=== PATIENT | male | born 1985 | race African-American/Black ===

== ENCOUNTER 2017-03-24 08:23 | Emergency (ER) | payer MEDICARE ==
[2017-03-24 08:47] VITALS: BP 98/55
[2017-03-24 09:30] LABS: Basophils % (Auto) 0.8 % (0.0-1.8); Eosinophils % (Auto) 1.4 % (0.0-4.3); Hematocrit 42.4 % (35.5-45.6); Hemoglobin 13.7 gm/dl (11.8-15.2); Mean Corpuscular HGB Conc 32 % (32-34); Platelet Count 243 K/mm3 (140-440); Red Blood Count 6.87 M/mm3 (3.65-5.03); Red Cell Distribution Width 15.7 % (13.2-15.2); White Blood Count 11.4 K/mm3 (4.5-11.0)
[2017-03-24 09:32] LABS: Mean Corpuscular Hemoglobin 20 pg (28-32); Mean Corpuscular Volume 62 fl (84-94)
[2017-03-24 09:45] LABS: BUN/Creatinine Ratio 3.33; Calcium 8.8 mg/dL (8.4-10.2); Chloride 73.5 mmol/L (98-107); Potassium 3.9 mmol/L (3.6-5.0)
--- NOTE | 2017-03-24 16:19 | ED Elopement Review ---
ED Pt Elopement review - Results review Lab results: Laboratory Tests 03/24/17 03/24/17 08:53 08:53 WBC 11.4 H RBC 6.87 H Hgb 13.7 Hct 42.4 MCV 62 L MCH 20 L MCHC 32 RDW 15.7 H Plt Count 243 Lymph % (Auto) 23.0 [place] % (Auto) 6.2 Eos % (Auto) 1.4 Baso % (Auto) 0.8 Lymph # 2.6 [place] # 0.7 Eos # 0.2 Baso # 0.1 Seg Neutrophils % 68.6 Seg Neutrophils # 7.8 H Sodium 130 L Potassium 3.9 Chloride 73.5 L Carbon Dioxide 25 Anion Gap 35 BUN 42 H Creatinine 12.6 H Estimated GFR 5 BUN/Creatinine Ratio 3.33 Glucose 104 H Calcium 8.8 - Call Back decision Pt Call Back Decision: Call pt to return to ED EMILY (BP 98/55)
== END 2017-03-24 10:17 | disposition left against medical advice (07) ==
LOC: ED 08:23
DX: R53.1 Weakness (principal); Z53.21 Procedure and treatment not carried out due to patient leaving prior to being seen by health care provider
CPT/HCPCS: 36415; 80048; 85025

== ENCOUNTER 2019-09-20 13:43 | Emergency (ER) | payer MEDICARE ==
[2019-09-20 14:17] VITALS: BP 113/67
[2019-09-20] MEDS ORDERED: ASPIRIN 81 MG TAB CHEW PO ONE (14:20)
--- NOTE | 2019-09-20 14:20 | Event Note ---
ED Screening Note Date of service: 09/20/19 Time: 14:17 ED Screening Note: Pt complains of left sided chest pain x yesterday denies hx of CT denies SOB This initial assessment/diagnostic orders/clinical plan/treatment(s) is/are subject to change based on patients health status, clinical progression and re- assessment by fellow clinical providers in the ED. Further treatment and workup at subsequent clinical providers discretion. Patient/guardian urged not to elope from the ED as their condition may be serious if not clinically assessed and managed. Initial orders include: Labs CXR EKG
--- NOTE | 2019-09-20 15:28 | XRay Report ---
CHEST 2 VIEWS INDICATION / CLINICAL INFORMATION: Chest Pain. COMPARISON: None available. FINDINGS: SUPPORT DEVICES: None. HEART / MEDIASTINUM: No significant abnormality. LUNGS / PLEURA: No significant pulmonary or pleural abnormality. No pneumothorax. ADDITIONAL FINDINGS: Gas-distended and dilated loops of bowel in the upper abdomen on both sides IMPRESSION: No acute cardiac pulmonary abnormality. Abnormal appearance of intestinal loops in the upper abdomen. Upright and supine abdominal radiograph versus contrast-enhanced CT of the abdomen and pelvis is rec ommended for further evaluation. Signer Name: Cayden Dale MD Signed: 09/20/2019 3:23 PM Workstation Name: [id number]
== END 2019-09-20 16:00 ==
LOC: ED 13:43
DX: R07.89 Other chest pain (principal); Z53.21 Procedure and treatment not carried out due to patient leaving prior to being seen by health care provider
CPT/HCPCS: 71046; 93005; 93010

== ENCOUNTER 2020-09-19 11:22 | Inpatient (IN) | payer MEDICARE ==
--- NOTE | 2020-09-19 11:36 | Emergency Department Report ---
Blank Doc - Documentation Documentation: 35-year-old male that presents with weakness and SOB. Hypotensive in triage. This initial assessment/diagnostic orders/clinical plan/treatment(s) is/are subject to change based on patient's health status, clinical progression and re- assessment by fellow clinical providers in the ED. Further treatment and workup at subsequent clinical providers discretion. Patient/guardians urged not to elope from the ED as their condition may be serious if not clinically assessed and managed. Initial orders include: 1- Patient sent to [facility] for further evaluation and treatment 2-cardiac workup
[2020-09-19] MEDS ORDERED: LACTATED RINGERS 1,000 ML IV ONE (11:44)
--- NOTE | 2020-09-19 11:45 | Emergency Department Report ---
ED General Adult HPI - General Chief complaint: Weakness Stated complaint: FEVER PUI?: Yes Time Seen by Provider: 09/19/20 11:35 Source: patient, RN notes reviewed, old records reviewed Mode of arrival: Wheelchair Limitations: Physical Limitation - History of Present Illness Initial comments: The patient was evaluated in the emergency department for symptoms described in the history of present illness. He/she was evaluated in the context of the global COVID-19 pandemic, which necessitated consideration that the patient migh t be at risk for infection with the virus that causes COVID-19. Institutional protocols and algorithms that pertain to the evaluation of patients at risk for COVID-19 are in a state of rapid change based on information released by regulatory bodies including the CDC and federal and state organizations. These policies and algorithms were followed during the patient's care in the emergency department. Please note that these policies, procedures and recommendations changed on a rapid basis. During the entire history and physical examination, I had on complete personal protective equipment. Nephrology: Dr. Ryan the patient is a 35-year-old gentleman, with a past medical history of end-stage renal disease on hemodialysis, Saturday, Saturday, Saturday. His last hemodialysis session was this past Saturday. It is currently Saturday. He also has a history of thrombosed upper extremity graft, and he reports that he is on lifelong Coumadin. Patient presents to the ER today with a complaint of weakness, shortness of breath He states his symptoms started this morning. He states initially he is not having any physical pain. He believes he had a fever of 107 degrees. He admits to a few episodes of nonbloody, nonbilious watery diarrhea. He does not believe he is having black tarry stool. He denies hematemesis. He makes no complaint of headache, neck pain, chest pain. During review of systems, he endorsed mild diffuse abdominal pain. No focal extremity weakness/numbness. No loss of taste or smell. He reports that he went to outpatient dialysis, but did not receive hemodialysis, and was thus referred to the emergency room. He does not describe exacerbating or relieving factors. He indicates no radiation that he is aware of -: hour(s) Location: abdomen Radiation: other Quality: other Consistency: other Improves with: other Worsens with: other - Related Data Home Medications Medication Instructions Recorded Confirmed Last Taken Calcium Acetate [Phoslo] 1,000 mg PO TID 10/11/15 04/24/16 04/23/16 1000 mg Colesevelam [Welchol] 625 mg PO BID 10/11/15 04/24/16 04/23/16 625 mg Fludrocortisone [Florinef] 0.1 mg PO QDAY 10/11/15 04/24/16 04/23/16 Lanthanum Carbonate [Fosrenol] 1,000 mg PO TID 10/11/15 04/24/16 04/23/16 1000 mg Midodrine HCl 10 mg PO TID 10/11/15 04/24/16 04/24/16 04:30 10 mg Omeprazole [PriLOSEC] 20 mg PO QDAY 10/11/15 04/24/16 04/23/16 20 mg Potassium Chloride [Klor-Con 10] 20 meq PO DAILY 10/11/15 04/24/16 04/23/16 20 meq Promethazine [Phenergan] 25 mg PO TID PRN 10/11/15 04/16/16 02/24/16 25 mg Warfarin Sodium [Coumadin] 4 mg PO 3XW 10/11/15 04/24/16 04/23/16 4 mg allopurinoL [Zyloprim] 100 mg PO QDAY 10/11/15 04/24/16 04/23/16 100 mg levETIRAcetam [Keppra TAB] 500 mg PO BID 10/11/15 04/24/16 04/24/16 04:30 500 mg Colchicine [Colcrys] 0.6 mg PO QDAY 04/16/16 04/24/16 Unknown Previous Rx's Medication Instructions Recorded Last Taken Type oxyCODONE /ACETAMINOPHEN [Percocet 1 tab PO Q4HR #30 tab 04/24/16 Unknown Rx 5/325] Allergies Allergy/AdvReac Type Severity Reaction Status Date / Time Iodine and Iodide Containing Allergy Swelling Verified 03/24/17 08:47 Produc povidone-iodine Allergy Swelling Verified 03/24/17 08:47 [From Betadine] soap [From Betadine] Allergy Swelling Verified 03/24/17 08:47 Iodinated Contrast Media AdvReac Swelling Verified 03/24/17 08:47 [Iodinated Contrast Media - IV Dye] IV Contrast AdvReac Swelling Uncoded 03/24/17 08:47 ED Review of Systems ROS: Stated complaint: FEVER Other details as noted in HPI Constitutional: fever, malaise, weakness Eyes: denies: eye discharge ENT: congestion Respiratory: shortness of breath Cardiovascular: denies: chest pain Gastrointestinal: abdominal pain. denies: hematemesis, melena, hematochezia Genitourinary: other (Patient states he does not produce urine) Musculoskeletal: as per HPI Neurological: weakness Hematological/Lymphatic: denies: easy bleeding ED Past Medical Hx - Past Medical History Previous Medical History?: Yes Hx Renal Disease: Yes (DIALYSIS - - ) Hx Seizures: Yes (Last seizure over a year ago; on Keppra) Hx HIV: No Additional medical history: chronic diarrhea - Surgical History Past Surgical History?: Yes Additional Surgical History: PEG TUBE, AV graft, permacath. GRAFT RIGHT UPPER ARM - Social History Smoking Status: Never Smoker Substance Use Type: None - Medications Home Medications: Home Medications Medication Instructions Recorded Confirmed Last Taken Type Calcium Acetate [Phoslo] 1,000 mg PO TID 10/11/15 04/24/16 04/23/16 History 1000 mg Colesevelam [Welchol] 625 mg PO BID 10/11/15 04/24/16 04/23/16 History 625 mg Fludrocortisone [Florinef] 0.1 mg PO QDAY 10/11/15 04/24/16 04/23/16 History Lanthanum Carbonate [Fosrenol] 1,000 mg PO TID 10/11/15 04/24/16 04/23/16 His tory 1000 mg Midodrine HCl 10 mg PO TID 10/11/15 04/24/16 04/24/16 04:30 History 10 mg Omeprazole [PriLOSEC] 20 mg PO QDAY 10/11/15 04/24/16 04/23/16 History 20 mg Potassium Chloride [Klor-Con 10] 20 meq PO DAILY 10/11/15 04/24/16 04/23/16 History 20 meq Promethazine [Phenergan] 25 mg PO TID PRN 10/11/15 04/16/16 02/24/16 History 25 mg Warfarin Sodium [Coumadin] 4 mg PO 3XW 10/11/15 04/24/16 04/23/16 History 4 mg allopurinoL [Zyloprim] 100 mg PO QDAY 10/11/15 04/24/16 04/23/16 History 100 mg levETIRAcetam [Keppra TAB] 500 mg PO BID 10/11/15 04/24/16 04/24/16 04:30 History 500 mg Colchicine [Colcrys] 0.6 mg PO QDAY 04/16/16 04/24/16 Unknown History oxyCODONE /ACETAMINOPHEN [Percocet 1 tab PO Q4HR #30 tab 04/24/16 Unknown Rx 5/325] ED Physical Exam - General Limitations: Physical Limitation General appearance: alert, in no apparent distress - Head Head exam: Present: atraumatic, normocephalic - Eye Eye exam: Present: normal appearance, EOMI - ENT ENT exam: Present: normal orophraynx, mucous membranes dry, normal external ear exam - Neck Neck exam: Present: normal inspection, full ROM. Absent: tenderness, meningismus - Respiratory Respiratory exam: Present: decreased breath sounds. Absent: respiratory distress, wheezes, rales, rhonchi, stridor - Cardiovascular Cardiovascular Exam: Present: normal rhythm, tachycardia, normal heart sounds. Absent: bradycardia, irregular rhythm, systolic murmur, diastolic murmur, rubs, gallop - GI/Abdominal GI/Abdominal exam: Present: soft, tenderness, normal bowel sounds, other (Mild diffuse abdominal tenderness. Feeding tube noted in the left mid quadrant, with no redness, pus or streaking). Absent: distended, guarding, rebound, rigid, pulsatile mass - Rectal Rectal exam: Present: deferred - Extremities Exam Extremities exam: Present: full ROM, other (1+ pulses noted in the bilateral upper and lower extremities. There is no long bony tenderness. Muscular compartments are soft. There is a left upper extremity graft, which is nonfunctional. There is a right upper extremity graft, which is functional. There is no redness, pus or streaking) - Back Exam Back exam: Present: normal inspection, full ROM. Absent: tenderness, CVA tenderness (R), CVA tenderness (L), paraspinal tenderness, vertebral tenderness - Neurological Exam Neurological exam: Present: alert, other (No facial droop. Tongue midline. Extraocular movements intact bilaterally. Facial sensation intact to light touch in V1, V2, V3 distribution bilaterally. 5 and a 5 strength in 4 extremities. Sensation intact to light touch in 4 extremities.) - Psychiatric Psychiatric exam: Present: normal affect, normal mood - Skin Skin exam: Present: warm, dry, intact, normal color. Absent: rash ED Course Vital Signs 09/19/20 09/19/20 09/19/20 11:37 12:11 12:15 Temperature 979 F H Pulse Rate 100 H 90 Respiratory 20 19 10 L Rate Blood Pressure 73/24 Blood Pressure 58/26 [Right] O2 Sat by Pulse Oximetry 09/19/20 09/19/20 12:30 14:00 Temperature Pulse Rate 84 76 Respiratory 11 L 15 Rate Blood Pressure 72/30 75/39 Blood Pressure [Right] O2 Sat by Pulse 96 Oximetry - Reevaluation(s) Reevaluation #1: 09/19/20 12:22 Differential diagnosis, including but not limited to: Dehydration, pneumonia, bacteremia, viremia, COVID-19, obstruction, volvulus, intra-abdominal infection, hyperkalemia, renal insufficiency Assessment and plan: 35-year-old gentleman, who was found to be hypotensive, with a complaint of weakness, resolved fever, shortness of breath, and abdominal pain. As per review of old medical records, patient has a history of hypertension, but is typically fluid responsive. It also appears that he was previously on fludrocortisone, however, the patient does not recall being on this medicine, and he is not quite sure why he has been on it. We recommended a digital rectal exam to exclude potentially life-threatening causes of hypotension, including GI bleed. Patient is refusing this examination. The patient is currently awake, oriented, clinically sober and exhibits decision-making capacity, and free from distracting injury. I did inform the patient of the risks of an undiagnosed GI bleed, including , disability, paralysis, loss of quality of life. Patient articulated understanding in his own words. Patient is amenable to resuscitation, fluids, supportive control/care, and diagnostic work-up. To that end, we will obtain appropriate laboratory studies, including sepsis labs, and laboratory studies to risk stratify for cytokine storm from Covid. We will place the patient on isolation, initiate stress dose steroids empirically, obtain CT scan of the abdomen pelvis, courtesy consultation placed for infectious disease, will defer to inpatient team to follow this up, I will discuss with his baking assistant once all of his initial diagnostics and data points have resulted. Have discussed this plan of care with the patient, who verbalized understanding, and he was amenable to this plan of care. Temperature of 979 is likely an error, as per nursing documentation on his triage sheet, temperature written down is 97.9 F. Patient reports that he is on chronic Coumadin therapy, tachycardia resolved, he is not significantly hypoxic, therefore, I think a pulmonary embolism is very unlikely. 09/19/20 12:26 Reevaluation #2: 09/19/20 14:47 Blood pressure improved at 96/66 mmHg. However, and then decreased to the mid 70s. Additional IV fluids ordered. CT scan abdomen pelvis reviewed and appreciated, pulmonary infiltrates noted. Antibiotics ordered. Please note that patient's initial laboratory studies were hemolyzed, thus, comprehensive metabolic panel was not available for my review. Laboratory studies were recollected, and comprehensive metabolic panel running at this time. Multiple discussions had with patient regarding recommendation for admission/hospitalization. Patient vacillated on this, but ultimately was amenable to admission/hospitalization. We will defer to inpatient team to further manage and evaluate subtherapeutic INR. Hospital physician, Dr. Monae Coburn to admit he states this patient is his private patient in the office, and that he chronically has hypotension, typically in the 70s/80s inpatient team ok with this blood pressure 09/19/20 14:52 09/19/20 15:15 Blood pressure 93/48. Laboratory studies demonstrate metabolic acidosis, azotemia and uremia. This is likely secondary to her end-stage renal disease. Patient does not know how many pounds or kilograms anyways. I have specifically asked nursing team to obtain weight in kilograms, so that we may dose patient appropriately in terms of his fluid requirements. He appears to be volume down, and given hypotension, lactic acidosis, pulmonary infiltrates on CT scan, patient ruling in for systemic inflammatory response syndrome criteria. - Consultations Consultation #1: 09/19/20 13:52 Discussed history, physical, pertinent laboratory studies, with nephrology on- call, Dr. Horta. Agrees with plan of care, nephrology will follow in consultation. Patient resting comfortably at this time, and in no acute distress - EJ/Peripheral Line Neck L Time Out Performed: Yes Indications: multiple IV sites needed Skin Cleansed in Sterile Fashion: Yes Size: 20 Dressing Placed: Tegaderm Patient Tolerated Procedure: well ED Medical Decision Making - Lab Data Result diagrams: 09/19/20 13:20 09/19/20 14:35 Vital Signs 09/19/20 11:37 Temperature 979 F H Pulse Rate 100 H Respiratory 20 Rate Blood Pressure 58/26 [Right] Vital Signs 09/19/20 09/19/20 09/19/20 11:37 12:11 12:15 Temperature 979 F H Pulse Rate 100 H 90 Respiratory 20 19 10 L Rate Blood Pressure 73/24 Blood Pressure 58/26 [Right] O2 Sat by Pulse Oximetry 09/19/20 09/19/20 12:30 14:00 Temperature Pulse Rate 84 76 Respiratory 11 L 15 Rate Blood Pressure 72/30 75/39 Blood Pressure [Right] O2 Sat by Pulse 96 Oximetry Lab Results 09/19/20 09/19/20 09/19/20 Range/Units 13:20 13:20 13:20 WBC 11.5 H (4.5-11.0) K/mm3 RBC 6.34 H (3.65-5.03) M/mm3 Hgb 12.1 (11.8-15.2) gm/dl Hct 36.8 (35.5-45.6) % MCV 58 L (84-94) fl MCH 19 L (28-32) pg MCHC 33 (32-34) % RDW 16.5 H (13.2-15.2) % Plt Count 180 (140-440) K/mm3 Lymph % (Auto) 11.4 L (13.4-35.0) % [place] % (Auto) 7.4 H (0.0-7.3) % Eos % (Auto) 0.0 (0.0-4.3) % Baso % (Auto) 0.2 (0.0-1.8) % Lymph # (Auto) 1.3 (1.2-5.4) K/mm3 [place] # (Auto) 0.9 H (0.0-0.8) K/mm3 Eos # (Auto) 0.0 (0.0-0.4) K/mm3 Baso # (Auto) 0.0 (0.0-0.1) K/mm3 Seg Neutrophils % 81.0 H (40.0-70.0) % Seg Neutrophils # 9.3 H (1.8-7.7) K/mm3 PT 13.2 (12.2-14.9) Sec. INR 1.02 (0.87-1.13) APTT 38.3 H (24.2-36.6) Sec. D-Dimer 933.77 H (0-234) ng/mlDDU Sodium (137-145) mmol/L Potassium (3.6-5.0) mmol/L Chloride (98-107) mmol/L Carbon Dioxide (22-30) mmol/L Anion Gap mmol/L BUN (9-20) mg/dL Creatinine (0.8-1.3) mg/dL Estimated GFR ml/min BUN/Creatinine Ratio % Glucose (75-100) mg/dL Lactic Acid (0.7-2.0) mmol/L Calcium (8.4-10.2) mg/dL Magnesium (1.7-2.3) mg/dL Total Bilirubin (0.1-1.2) mg/dL AST (5-40) units/L ALT (7-56) units/L Alkaline Phosphatase (35-129) units/L Lactate Dehydrogenase (91-180) units/L Total Creatine Kinase (55-170) units/L Troponin T (0.00-0.029) ng/mL C-Reactive Protein (0.00-1.30) mg/dL Total Protein (6.3-8.2) g/dL Albumin (3.9-5) g/dL Albumin/Globulin Ratio % Procalcitonin 4.84 (<0.15) ng/mL 09/19/20 09/19/20 Range/Units 14:35 14:35 WBC (4.5-11.0) K/mm3 RBC (3.65-5.03) M/mm3 Hgb (11.8-15.2) gm/dl Hct (35.5-45.6) % MCV (84-94) fl MCH (28-32) pg MCHC (32-34) % RDW (13.2-15.2) % Plt Count (140-440) K/mm3 Lymph % (Auto) (13.4-35.0) % [place] % (Auto) (0.0-7.3) % Eos % (Auto) (0.0-4.3) % Baso % (Auto) (0.0-1.8) % Lymph # (Auto) (1.2-5.4) K/mm3 [place] # (Auto) (0.0-0.8) K/mm3 Eos # (Auto) (0.0-0.4) K/mm3 Baso # (Auto) (0.0-0.1) K/mm3 Seg Neutrophils % (40.0-70.0) % Seg Neutrophils # (1.8-7.7) K/mm3 PT (12.2-14.9) Sec. INR (0.87-1.13) APTT (24.2-36.6) Sec. D-Dimer (0-234) ng/mlDDU Sodium 132 L (137-145) mmol/L Potassium 2.7 L* (3.6-5.0) mmol/L Chloride 73.3 L (98-107) mmol/L Carbon Dioxide 36 H (22-30) mmol/L Anion Gap 25 mmol/L BUN 62 H (9-20) mg/dL Creatinine 15.9 H (0.8-1.3) mg/dL Estimated GFR 3 ml/min BUN/Creatinine Ratio 4 % Glucose 97 (75-100) mg/dL Lactic Acid 3.10 H* (0.7-2.0) mmol/L Calcium 7.6 L (8.4-10.2) mg/dL Magnesium 2.10 (1.7-2.3) mg/dL Total Bilirubin 0.50 (0.1-1.2) mg/dL AST 36 (5-40) units/L ALT 11 (7-56) units/L Alkaline Phosphatase 65 (35-129) units/L Lactate Dehydrogenase 235 H (91-180) units/L Total Creatine Kinase 114 (55-170) units/L Troponin T 0.014 (0.00-0.029) ng/mL C-Reactive Protein 7.80 H (0.00-1.30) mg/dL Total Protein 7.3 (6.3-8.2) g/dL Albumin 3.9 (3.9-5) g/dL Albumin/Globulin Ratio 1.1 % Procalcitonin (<0.15) ng/mL - Radiology Data Radiology results: report reviewed, image reviewed Print Report Referring Physician: MARY ANAND Patient Name: NITZA LINDSEY Date of : 1985 Sex: Male Report Date: 2020-09-19 Report Status: Finalized Findings [facility] [address] [place] [address] XRay Report Signed Patient: NITZA LINDSEY MR#: [id number] : 1985 Acct:[id number] Age/Sex: 35 / M ADM Date: 09/19/20 Loc: ED Attending Dr: Ordering Physician: MARY ANAND MD Date of Service: 09/19/20 Procedure(s): XR chest 1V ap Accession Number(s): [id number] cc: MARY ANAND MD Fluoro Time In Minutes: CHEST 1 VIEW INDICATION: shock, hypotensioon, chills. COMPARISON: 09/20/2019 FINDINGS: Support devices: None. Heart: Within normal limits. Lungs/Pleura: No acute air space or interstitial disease. Additional findings: Prominent gas-filled loops of bowel in the upper abdomen are again noted. IMPRESSION: No acute findings. Signer Name: Beny Abreu Jr, MD Signed: 09/19/2020 12:15 PM Workstation Name: [id number] Transcribed By: TTR Dictated By: BENY ABREU JR, MD Electronically Authenticated By: BENY ABREU JR, MD Signed Date/Time: 09/19/20 1215 DD/ 1214 TD/TT: CT ABDOMEN AND PELVIS WITHOUT CONTRAST HISTORY: acute abd pain, hypotension, dilated loops of viktoriya COMPARISON: None. TECHNIQUE: Axial CT images were obtained through the abdomen and pelvis without IV contrast. Sagittal and coronal reformatted images. All CT scans at this location are performed using CT dose reduction for ALARA by means of automated exposure control. FINDINGS: CT ABDOMEN: Lung Bases: There are subtle patchy groundglass densities in the lower lung zones concerning for atypical infection or viral infection. No pleural effusion. Heart size is normal. Liver: No significant abnormality. Biliary: No significant abnormality. Spleen: No significant abnormality. Unenlarged. Pancreas: No significant abnormality. Adrenals: No significant abnormality. Kidneys: Both kidneys are atrophic with scattered simple appearing cysts. No obstructive uropathy. Lymphatics: No lymphadenopathy. Vasculature: Mild diffuse arterial calcifications. No aneurysm. Bowel/Peritoneum: A peg tube terminates in the mid to distal stomach. The colon appears mildly distended with gas and moderate fluid. There is no convincing evidence for obstruction. No focal bowel wall thickening. The small bowel loops are unremarkable. The appendix is not confidently identified. CT PELVIS: : The bladder is decompressed. Osseous Structures: No significant abnormality. Additional Findings: None IMPRESSION: Subtle scattered lung opacities at the lung bases concerning for viral infection. Slightly prominent: With moderate fluid and gas. Gastroenteritis could be considered. No convincing evidence for bowel obstruction. Chronic renal parenchymal disease. Multiple renal cysts. Signer Name: Beny Abreu Jr, MD Signed: 09/19/2020 12:22 PM Workstation Name: [id number] Critical Care Time: Yes Critical care time in (mins) excluding proc time.: 35 Critical care attestation.: If time is entered above; I have spent that time in minutes in the direct care of this critically ill patient, excluding procedure time. ED Disposition Clinical Impression: ESRD on dialysis, Dehydration, Acute abdominal pain, Suspected 2019 novel coronavirus infection, Uremia, Azotemia, Metabolic acidosis, Hypokalemia, SIRS (systemic inflammatory response syndrome) Dyspnea Qualifiers: Dyspnea type: other forms of dyspnea Qualified Code(s): R06.09 - Other forms of dyspnea Disposition: OP ADMIT IP TO THIS HOSP Is pt being admited?: Yes Does the pt Need Aspirin: No Condition: Serious Referrals: PRIMARY CARE, [Primary Care Provider] - 3-5 Days
[2020-09-19] MEDS ORDERED: fentaNYL 100 MCG/2 ML INJ IV ONE (12:15)
[2020-09-19] MEDS ORDERED: HYDROCORTISONE SOD SUCC 100 MG/2 ML VIAL IV ONE (12:18)
--- NOTE | 2020-09-19 12:19 | XRay Report ---
CHEST 1 VIEW INDICATION: shock, hypotensioon, chills. COMPARISON: 09/20/2019 FINDINGS: Support devices: None. Heart: Within normal limits. Lungs/Pleura: No acute air space or interstitial disease. Additional findings: Prominent gas-filled loops of bowel in the upper abdomen are again noted. IMPRESSION: No acute findings. Signer Name: Beny Abreu Jr, MD Signed: 09/19/2020 12:15 PM Workstation Name: [id number]
--- NOTE | 2020-09-19 13:27 | Cat Scan Report ---
CT ABDOMEN AND PELVIS WITHOUT CONTRAST HISTORY: acute abd pain, hypotension, dilated loops of viktoriya COMPARISON: None. TECHNIQUE: Axial CT images were obtained through the abdomen and pelvis without IV contrast. Sagittal and coronal reformatted images. All CT scans at this location are performed using CT dose reduction for ALARA by means of automated exposure control. FINDINGS: CT ABDOMEN: Lung Bases: There are subtle patchy groundglass densities in the lower lung zones concerning for atyp ical infection or viral infection. No pleural effusion. Heart size is normal. Liver: No significant abnormality. Biliary: No significant abnormality. Spleen: No significant abnormality. Unenlarged. Pancreas: No significant abnormality. Adrenals: No significant abnormality. Kidneys: Both kidneys are atrophic with scattered simple appearing cysts. No obstructive uropathy. Lymphatics: No lymphadenopathy. Vasculature: Mild diffuse arterial calcifications. No aneurysm. Bowel/Peritoneum: A peg tube terminates in the mid to distal stomach. The colon appears mildly disten ded with gas and moderate fluid. There is no convincing evidence for obstruction. No focal bowel wall thickening. The small bowel loops are unremarkable. The appendix is not confidently identified. CT PELVIS: : The bladder is decompressed. Osseous Structures: No significant abnormality. Additional Findings: None IMPRESSION: Subtle scattered lung opacities at the lung bases concerning for viral infection. Slightly prominent: With moderate fluid and gas. Gastroenteritis could be considered. No convincing e vidence for bowel obstruction. Chronic renal parenchymal disease. Multiple renal cysts. Signer Name: Beny Abreu Jr, MD Signed: 09/19/2020 1:22 PM Workstation Name: [id number]
[2020-09-19 13:31] LABS: Basophils % (Auto) 0.2 % (0.0-1.8); Hematocrit 36.8 % (35.5-45.6); Hemoglobin 12.1 gm/dl (11.8-15.2); Lymphocytes # (Auto) 1.3 K/mm3 (1.2-5.4); Lymphocytes % (Auto) 11.4 % (13.4-35.0); Mean Corpuscular HGB Conc 33 % (32-34); Monocytes # (Auto) 0.9 K/mm3 (0.0-0.8); Monocytes % (Auto) 7.4 % (0.0-7.3); Red Blood Count 6.34 M/mm3 (3.65-5.03); Red Cell Distribution Width 16.5 % (13.2-15.2)
[2020-09-19 13:42] LABS: Mean Corpuscular Volume 58 fl (84-94); Platelet Count 180 K/mm3 (140-440)
[2020-09-19] MEDS ORDERED: cefTRIAXone/NS 1 GM/50 ML 1 GM/50 ML BAG IV ONE (13:43)
[2020-09-19 13:45] LABS: INR 1.02 (0.87-1.13)
[2020-09-19] MEDS ORDERED: SODIUM CHLORIDE 0.9% 500 ML 500 ML IV ONE ×2 (13:45→14:22)
[2020-09-19 13:46] LABS: Partial Thromboplastin Time 38.3 Sec. (24.2-36.6)
[2020-09-19] MEDS ORDERED: AZITHROMYCIN 500 MG in SODIUM CHLORIDE 0.9% 250ML 250 ML IV ONE (14:00)
[2020-09-19 15:06] LABS: Albumin 3.9 g/dL (3.9-5); C-Reactive Protein 7.8 mg/dL (0.00-1.30); Calcium 7.6 mg/dL (8.4-10.2)
[2020-09-19] MEDS ORDERED: POTASSIUM CHLORIDE ER 20 MEQ TAB PO ONE (15:17)
--- NOTE | 2020-09-19 15:31 | Event Note ---
Date: 09/19/20 Appreciate renal consult, patient follows with [facility] for [facility]D. Full consult to follow. In short, patient presents with sepsis potentially due to COVID-19 vs other etiology, is hypotensive with elevated lactate. Labs and vitals reviewed, no emergent HD indication and currently unstable for HD. Will follow and provide HD as needed based on labs, volume status, and clinical stability
[2020-09-20] MEDS ORDERED: PROMETHAZINE 25 MG TAB PO PRN (02:30)
[2020-09-20] MEDS ORDERED: ONDANSETRON 4 MG/2 ML INJ IV PRN (02:33)
[2020-09-20] MEDS ORDERED: METOCLOPRAMIDE 10 MG/2 ML INJ IV PRN ×2 (02:33→02:51)
[2020-09-20] MEDS ORDERED: ACETAMINOPHEN 325 MG TAB PO PRN (02:33)
[2020-09-20] MEDS ORDERED: HYDROmorphone 1 MG/1 ML INJ IV PRN (02:33)
--- NOTE | 2020-09-20 02:40 | History and Physical Report ---
History of Present Illness Date of examination: 09/19/20 Date of admission: 09/19/20 14:49 Chief complaint: Weakness and shortness of breath for 1 day History of present illness: 35-year-old patient male well-known to me with history of end-stage renal disease hypotension and GERD comes in for increasing shortness of breath and weakness. Patient also had a fever of 101 degrees. Patient also admits to diarrhea. No hematemesis or black tarry stools. Fever and cough present. No exposure to coronavirus. Patient also has history of seizures. No recent seizures. - Past Medical History Previous Medical History?: Yes --Renal Disease: Yes (DIALYSIS - - ) --Seizures: Yes (Last seizure over a year ago; on Keppra) --Hypotension Additional medical history: chronic diarrhea - Surgical History Past Surgical History?: Yes Additional Surgical History: PEG TUBE, AV graft, permacath. GRAFT RIGHT UPPER ARM - Social History Smoking Status: Never Smoker Substance Use Type: None - Medications Home Medications: Home Medications Medication Instructions Recorded Confirmed Last Taken Type Calcium Acetate [Phoslo] 1,000 mg PO TID 10/11/15 04/24/16 04/23/16 History 1000 mg Colesevelam [Welchol] 625 mg PO BID 10/11/15 04/24/16 04/23/16 History 625 mg Fludrocortisone [Florinef] 0.1 mg PO QDAY 10/11/15 04/24/16 04/23/16 History Lanthanum Carbonate [Fosrenol] 1,000 mg PO TID 10/11/15 04/24/16 04/23/16 History 1000 mg Midodrine HCl 10 mg PO TID 10/11/15 04/24/16 04/24/16 04:30 History 10 mg Omeprazole [PriLOSEC] 20 mg PO QDAY 10/11/15 04/24/16 04/23/16 History 20 mg Potassium Chloride [Klor-Con 10] 20 meq PO DAILY 10/11/15 04/24/16 04/23/16 History 20 meq Promethazine [Phenergan] 25 mg PO TID PRN 10/11/15 04/16/16 02/24/16 History 25 mg Warfarin Sodium [Coumadin] 4 mg PO 3XW 10/11/15 04/24/16 04/23/16 History 4 mg allopurinoL [Zyloprim] 100 mg PO QDAY 10/11/15 04/24/16 04/23/16 History 100 mg levETIRAcetam [Keppra TAB] 500 mg PO BID 10/11/15 04/24/16 04/24/16 04:30 History 500 mg Colchicine [Colcrys] 0.6 mg PO QDAY 04/16/16 04/24/16 Unknown History oxyCODONE /ACETAMINOPHEN [Percocet 1 tab PO Q4HR #30 tab 04/24/16 Unknown Rx 5/325] Review of Systems ROS: Stated complaint: FEVER Other details as noted in HPI Constitutional: fever, malaise, weakness Eyes: denies: eye discharge ENT: congestion Respiratory: shortness of breath Cardiovascular: denies: chest pain Gastrointestinal: abdominal pain. denies: hematemesis, melena, hematochezia Genitourinary: other (Patient states he does not produce urine) Musculoskeletal: as per HPI Neurological: weakness Hematological/Lymphatic: denies: easy bleeding Medications and Allergies Allergies Allergy/AdvReac Type Severity Reaction Status Date / Time Iodine and Iodide Containing Allergy Swelling Verified 03/24/17 08:47 Produc povidone-iodine Allergy Swelling Verified 03/24/17 08:47 [From Betadine] soap [From Betadine] Allergy Swelling Verified 03/24/17 08:47 Iodinated Contrast Media AdvReac Swelling Verified 03/24/17 08:47 [Iodinated Contrast Media - IV Dye] IV Contrast AdvReac Swelling Uncoded 03/24/17 08:47 Home Medications Medication Instructions Recorded Confirmed Last Taken Type Calcium Acetate [Phoslo] 1,000 mg PO TID 10/11/15 04/24/16 04/23/16 History 1000 mg Colesevelam [Welchol] 625 mg PO BID 10/11/15 04/24/16 04/23/16 History 625 mg Fludrocortisone [Florinef] 0.1 mg PO QDAY 10/11/15 04/24/16 04/23/16 History Lanthanum Carbonate [Fosrenol] 1,000 mg PO TID 10/11/15 04/24/16 04/23/16 History 1000 mg Midodrine HCl 10 mg PO TID 10/11/15 04/24/16 04/24/16 04:30 History 10 mg Omeprazole [PriLOSEC] 20 mg PO QDAY 10/11/15 04/24/16 04/23/16 History 20 mg Potassium Chloride [Klor-Con 10] 20 meq PO DAILY 10/11/15 04/24/16 04/23/16 History 20 meq Promethazine [Phenergan] 25 mg PO TID PRN 10/11/15 04/16/16 02/24/16 History 25 mg Warfarin Sodium [Coumadin] 4 mg PO 3XW 10/11/15 04/24/16 04/23/16 History 4 mg allopurinoL [Zyloprim] 100 mg PO QDAY 10/11/15 04/24/16 04/23/16 History 100 mg levETIRAcetam [Keppra TAB] 500 mg PO BID 10/11/15 04/24/16 04/24/16 04:30 History 500 mg Colchicine [Colcrys] 0.6 mg PO QDAY 04/16/16 04/24/16 Unknown History oxyCODONE /ACETAMINOPHEN [Percocet 1 tab PO Q4HR #30 tab 04/24/16 Unknown Rx 5/325] Active Meds: Active Medications Acetaminophen (Acetaminophen 325 Mg Tab) 650 mg PO Q4H PRN PRN Reason: Pain MILD(1-3)/Fever >100.5/TUBBS Allopurinol (Allopurinol 100 Mg Tab) 100 mg PO QDAY [facility] Calcium Acetate (Calcium Acetate 667 Mg Cap) 1,000 mg PO TID [facility] Colesevelam HCl (Colesevelam 625 Mg Tab) 625 mg PO BID [facility] Fludrocortisone Acetate (Fludrocortisone 0.1 Mg Tab) 0.1 mg PO QDAY [facility] Hydromorphone HCl (Hydromorphone 1 Mg/1 Ml Inj) 0.25 mg IV Q3H PRN PRN Reason: Pain, Moderate (4-6) Levetiracetam (Levetiracetam 500 Mg Tab) 500 mg PO BID [facility] Metoclopramide HCl (Metoclopramide 10 Mg/2 Ml Inj) 10 mg IV Q6H PRN PRN Reason: Nausea And Vomiting Miscellaneous Medication (Colchicine [Colcrys]) 0.6 mg PO QDAY [facility] Miscellaneous Medication (Lanthanum Carbonate [Fosrenol]) 1,000 mg PO TID [facility] Miscellaneous Medication (Midodrine Hcl [Midodrine Hcl]) 10 mg PO TID [facility] Miscellaneous Medication (Omeprazole [Prilosec]) 20 mg PO QDAY [facility] Miscellaneous Medication (Potassium Chloride [Klor-Con 10]) 20 meq PO DAILY [facility] Miscellaneous Medication (Warfarin Sodium [Coumadin]) 4 mg PO 3XW [facility] Ondansetron HCl (Ondansetron 4 Mg/2 Ml Inj) 4 mg IV Q3H PRN PRN Reason: Nausea And Vomiting Oxycodone/Acetaminophen (Oxycodone /Acetaminophen 5-325mg Tab) 1 tab PO Q4HR [facility] Promethazine HCl (Promethazine 25 Mg Tab) 25 mg PO TID PRN PRN Reason: Nausea Sodium Chloride (Sodium Chloride 0.9% 10 Ml Flush Syringe) 10 ml IV BID [facility] Sodium Chloride (Sodium Chloride 0.9% 10 Ml Flush Syringe) 10 ml IV PRN PRN PRN Reason: LINE FLUSH Exam - Constitutional Vitals: Temp Pulse Resp BP Pulse Ox 979 F H 72 16 93/48 96 09/19/20 11:37 09/19/20 15:00 09/19/20 15:18 09/19/20 15:00 09/19/20 15:00 General appearance: Present: no acute distress, well-nourished - EENT Eyes: Present: PERRL ENT: hearing intact, clear oral mucosa - Neck Neck: Present: supple, normal ROM - Respiratory Respiratory effort: normal Respiratory: bilateral: CTA - Cardiovascular Heart rate: 78 Rhythm: regular Heart Sounds: Present: S1 & S2. Absent: rub, click - Extremities Extremities: pulses symmetrical, No edema, abnormal (Multiple extremity fistulas possibly thrombosed) Peripheral Pulses: within normal limits - Abdominal General gastrointestinal: Present: soft, non-tender, non-distended, normal bowel sounds Male genitourinary: Present: normal - Integumentary Integumentary: Present: clear, warm, dry - Musculoskeletal Musculoskeletal: gait normal, strength equal bilaterally - Psychiatric Psychiatric: appropriate mood/affect, intact judgment & insight - Neurologic Neurologic: CNII-XII intact, moves all extremities HEART Score - HEART Score Troponin: Troponin T 0.014 ng/mL (0.00-0.029) 09/19/20 14:35 Results - Labs CBC & Chem 7: 09/19/20 13:20 09/19/20 14:35 Labs: Laboratory Last Values WBC 11.5 K/mm3 (4.5-11.0) H 09/19/20 13:20 RBC 6.34 M/mm3 (3.65-5.03) H 09/19/20 13:20 Hgb 12.1 gm/dl (11.8-15.2) 09/19/20 13:20 Hct 36.8 % (35.5-45.6) 09/19/20 13:20 MCV 58 fl (84-94) L 09/19/20 13:20 MCH 19 pg (28-32) L 09/19/20 13:20 MCHC 33 % (32-34) 09/19/20 13:20 RDW 16.5 % (13.2-15.2) H 09/19/20 13:20 Plt Count 180 K/mm3 (140-440) 09/19/20 13:20 Lymph % (Auto) 11.4 % (13.4-35.0) L 09/19/20 13:20 [place] % (Auto) 7.4 % (0.0-7.3) H 09/19/20 13:20 Eos % (Auto) 0.0 % (0.0-4.3) 09/19/20 13:20 Baso % (Auto) 0.2 % (0.0-1.8) 09/19/20 13:20 Lymph # (Auto) 1.3 K/mm3 (1.2-5.4) 09/19/20 13:20 Hopkins # (Auto) 0.9 K/mm3 (0.0-0.8) H 09/19/20 13:20 Eos # (Auto) 0.0 K/mm3 (0.0-0.4) 09/19/20 13:20 Baso # (Auto) 0.0 K/mm3 (0.0-0.1) 09/19/20 13:20 Seg Neutrophils % 81.0 % (40.0-70.0) H 09/19/20 13:20 Seg Neutrophils # 9.3 K/mm3 (1.8-7.7) H 09/19/20 13:20 PT 13.2 Sec. (12.2-14.9) 09/19/20 13:20 INR 1.02 (0.87-1.13) 09/19/20 13:20 APTT 38.3 Sec. (24.2-36.6) H 09/19/20 13:20 D-Dimer 933.77 ng/mlDDU (0-234) H 09/19/20 13:20 Sodium 132 mmol/L (137-145) L 09/19/20 14:35 Potassium 2.7 mmol/L (3.6-5.0) L* 09/19/20 14:35 Chloride 73.3 mmol/L (98-107) L 09/19/20 14:35 Carbon Dioxide 36 mmol/L (22-30) H 09/19/20 14:35 Anion Gap 25 mmol/L 09/19/20 14:35 BUN 62 mg/dL (9-20) H 09/19/20 14:35 Creatinine 15.9 mg/dL (0.8-1.3) H 09/19/20 14:35 Estimated GFR 3 ml/min 09/19/20 14:35 BUN/Creatinine Ratio 4 % 09/19/20 14:35 Glucose 97 mg/dL (75-100) 09/19/20 14:35 Lactic Acid 2.60 mmol/L (0.7-2.0) H* 09/19/20 19:52 Calcium 7.6 mg/dL (8.4-10.2) L 09/19/20 14:35 Magnesium 2.10 mg/dL (1.7-2.3) 09/19/20 14:35 Ferritin 2699.0 ng/mL (30.0-300.0) H 09/19/20 13:20 Total Bilirubin 0.50 mg/dL (0.1-1.2) 09/19/20 14:35 AST 36 units/L (5-40) 09/19/20 14:35 ALT 11 units/L (7-56) 09/19/20 14:35 Alkaline Phosphatase 65 units/L (35-129) 09/19/20 14:35 Lactate Dehydrogenase 235 units/L (91-180) H 09/19/20 14:35 Total Creatine Kinase 114 units/L (55-170) 09/19/20 14:35 Troponin T 0.014 ng/mL (0.00-0.029) 09/19/20 14:35 C-Reactive Protein 7.80 mg/dL (0.00-1.30) H 09/19/20 14:35 Total Protein 7.3 g/dL (6.3-8.2) 09/19/20 14:35 Albumin 3.9 g/dL (3.9-5) 09/19/20 14:35 Albumin/Globulin Ratio 1.1 % 09/19/20 14:35 Procalcitonin 4.84 ng/mL (<0.15) 09/19/20 13:20 Short CBC 09/19/20 Range/Units 13:20 WBC 11.5 H (4.5-11.0) K/mm3 Hgb 12.1 (11.8-15.2) gm/dl Hct 36.8 (35.5-45.6) % Plt Count 180 (140-440) K/mm3 BMP 09/19/20 14:35 Sodium 132 L Potassium 2.7 L* Chloride 73.3 L Carbon Dioxide 36 H BUN 62 H Creatinine 15.9 H Glucose 97 Calcium 7.6 L Cardiac Enzymes 09/19/20 Range/Units 14:35 Total Creatine Kinase 114 (55-170) units/L Troponin T 0.014 (0.00-0.029) ng/mL Liver Function 09/19/20 Range/Units 14:35 Total Bilirubin 0.50 (0.1-1.2) mg/dL AST 36 (5-40) units/L ALT 11 (7-56) units/L Alkaline Phosphatase 65 (35-129) units/L Albumin 3.9 (3.9-5) g/dL Microbiology: Microbiology 09/19/20 13:20 Peripheral/Venous Blood Culture - Preliminary Culture in Progress 09/19/20 13:20 Peripheral/Venous Blood Culture - Preliminary Culture in Progress - Imaging and Cardiology Chest x-ray: report reviewed [place]/IV: IV Catheter Type [Left INT / Saline Lock External Jugular] Assessment and Plan Advance Directives: Yes (Full code) VTE prophylaxis?: Chemical Plan of care discussed with patient/family: Yes - Patient Problems (1) Hypokalemia Current Visit: Yes Status: Acute Plan to address problem: Supplemented (2) SIRS (systemic inflammatory response syndrome) Current Visit: Yes Status: Acute Plan to address problem: Patient has fever and cough Rule out coronavirus. Empiric IV antibiotics (3) Hypotension Current Visit: Yes Status: Chronic Qualifiers: Hypotension type: idiopathic hypotension Qualified Code(s): I95.0 - Idiopathic hypotension Plan to address problem: Patient is on midodrine His blood pressure usually runs 80/60 (4) End-stage renal disease needing dialysis Current Visit: Yes Status: Chronic Plan to address problem: Continue hemodialysis as per schedule Chest x-ray is no acute findings. 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
[2020-09-20] MEDS ORDERED: VANCOMYCIN PHARMACY TO DOSE IV SCH (03:00)
[2020-09-20] MEDS ORDERED: POTASSIUM CHLORIDE ER 20 MEQ TAB PO ONE ×2 (03:30→07:02)
[2020-09-20] MEDS ORDERED: VANCOMYCIN/NS 1 GM/250 ML 1 GM/250 ML BAG IV ONE (04:00)
[2020-09-20] MEDS: levETIRAcetam 500 MG TAB PO SCH ×3 (04:13→21:39)
[2020-09-20] MEDS: oxyCODONE /ACETAMINOPHEN 5-325MG TAB PO SCH ×6 (04:13→21:40)
[2020-09-20 05:56] LABS: Hematocrit 30.1 % (35.5-45.6); Hemoglobin 9.8 gm/dl (11.8-15.2); Mean Corpuscular HGB Conc 33 % (32-34); Platelet Count 145 K/mm3 (140-440); Red Blood Count 5.14 M/mm3 (3.65-5.03); Red Cell Distribution Width 16.5 % (13.2-15.2)
[2020-09-20 06:10] LABS: Basophils % (Auto) 0.1 % (0.0-1.8); Lymphocytes % (Auto) 32.3 % (13.4-35.0); Mean Corpuscular Volume 59 fl (84-94); Monocytes # (Auto) 0.5 K/mm3 (0.0-0.8); Monocytes % (Auto) 4.9 % (0.0-7.3)
[2020-09-20 06:23] LABS: Albumin 3.4 g/dL (3.9-5); Calcium 6.4 mg/dL (8.4-10.2)
[2020-09-20] MEDS ORDERED: NON-FORMULARY EACH (Midodrine Hcl [Midodrine Hcl] 10 MG Tablet) PO SCH (08:00)
[2020-09-20] MEDS ORDERED: LANTHANUM CARBONATE 1000 MG PO SCH (08:00)
[2020-09-20] MEDS ORDERED: CALCIUM ACETATE 667 MG CAP PO SCH (08:00)
[2020-09-20] MEDS ORDERED: WARFARIN 2 MG TAB PO ONE (08:00)
[2020-09-20] MEDS: COLESEVELAM 625 MG TAB PO SCH ×2 (09:04→16:59)
[2020-09-20] MEDS: CALCIUM ACETATE 667 MG CAP PO SCH ×3 (09:05→17:01)
[2020-09-20] MEDS: LANTHANUM CARBONATE 500 MG TAB PO SCH ×3 (09:05→17:00)
[2020-09-20] MEDS: MIDODRINE 5 MG TAB PO SCH ×3 (09:06→16:59)
[2020-09-20] MEDS: POTASSIUM CHLORIDE 10 MEQ 10 MEQ/100 ML BAG IV SCH ×2 (09:07→10:32)
[2020-09-20] MEDS ORDERED: cefTRIAXone/NS 1 GM/50 ML 1 GM/50 ML BAG IV SCH (10:00)
[2020-09-20] MEDS ORDERED: COLCHICINE 0.6 MG PO SCH (10:00)
[2020-09-20] MEDS ORDERED: WARFARIN SODIUM 4 MG PO SCH (10:00)
[2020-09-20] MEDS ORDERED: NON-FORMULARY EACH (Omeprazole [Prilosec] 20 MG Capsule.Dr) PO SCH (10:00)
[2020-09-20] MEDS ORDERED: NON-FORMULARY EACH (Potassium Chloride [Klor-Con 10] 10 MEQ Tablet.Er) PO SCH (10:00)
[2020-09-20] MEDS: POTASSIUM CHLORIDE ER 20 MEQ TAB PO SCH (10:25)
[2020-09-20] MEDS: PANTOPRAZOLE 20 MG TAB PO SCH (10:26)
[2020-09-20] MEDS: FLUDROCORTISONE 0.1 MG TAB PO SCH (10:26)
--- NOTE | 2020-09-20 11:18 | Event Note ---
Date: 09/20/20 This is a patient well-known to our service. 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 Contacted regarding possible thrombosed AV access. Placed orders for fistula ultrasound. Awaiting Covid results.
[2020-09-20] MEDS: allopurinoL 100 MG TAB PO SCH (11:38)
[2020-09-20] MEDS: COLCHICINE 0.6 MG CAP PO SCH (11:38)
--- NOTE | 2020-09-20 12:12 | Consultation ---
History of Present Illness - Reason for Consult Consult date: 09/20/20 end stage renal disease - History of Present Illness This is a 35 year-old man with ESRD who presents for increasing shortness of breath and weakness, fever. Patient usually dialyzes MWF at [facility]. Last HD 09/16. Known to be chronically hypotensive on midodrine. HPI obtained from chart review and primary HPI to avoid PPE overuse in COVID-19 pandemic. - Past Medical History Previous Medical History?: Yes --Renal Disease: Yes (DIALYSIS M -W - F) --Seizures: Yes (Last seizure over a year ago; on Keppra) --Hypotension Additional medical history: chronic diarrhea - Surgical History Past Surgical History?: Yes Additional Surgical History: PEG TUBE, AV graft, permacath. GRAFT RIGHT UPPER ARM - Social History Smoking Status: Never Smoker Substance Use Type: None Review of systems: obtained from primary HPI Medications and Allergies Allergies Allergy/AdvReac Type Severity Reaction Status Date / Time Iodine and Iodide Containing Allergy Swelling Verified 03/24/17 08:47 Produc povidone-iodine Allergy Swelling Verified 03/24/17 08:47 [From Betadine] soap [From Betadine] Allergy Swelling Verified 03/24/17 08:47 Iodinated Contrast Media AdvReac Swelling Verified 03/24/17 08:47 [Iodinated Contrast Media - IV Dye] IV Contrast AdvReac Swelling Uncoded 03/24/17 08:47 Home Medications Medication Instructions Recorded Confirmed Last Taken Type Calcium Acetate [Phoslo] 1,000 mg PO TID 10/11/15 04/24/16 04/23/16 History 1000 mg Colesevelam [Welchol] 625 mg PO BID 10/11/15 04/24/16 04/23/16 History 625 mg Fludrocortisone [Florinef] 0.1 mg PO QDAY 10/11/15 04/24/16 04/23/16 History Lanthanum Carbonate [Fosrenol] 1,000 mg PO TID 10/11/15 04/24/16 04/23/16 History 1000 mg Midodrine HCl 10 mg PO TID 10/11/15 04/24/16 04/24/16 04:30 History 10 mg Omeprazole [PriLOSEC] 20 mg PO QDAY 10/11/15 04/24/16 04/23/16 History 20 mg Potassium Chloride [Klor-Con 10] 20 meq PO DAILY 10/11/15 04/24/16 04/23/16 History 20 meq Promethazine [Phenergan] 25 mg PO TID PRN 10/11/15 04/16/16 02/24/16 History 25 mg Warfarin Sodium [Coumadin] 4 mg PO 3XW 10/11/15 04/24/16 04/23/16 History 4 mg allopurinoL [Zyloprim] 100 mg PO QDAY 10/11/15 04/24/16 04/23/16 History 100 mg levETIRAcetam [Keppra TAB] 500 mg PO BID 10/11/15 04/24/16 04/24/16 04:30 History 500 mg Colchicine [Colcrys] 0.6 mg PO QDAY 04/16/16 04/24/16 Unknown History oxyCODONE /ACETAMINOPHEN [Percocet 1 tab PO Q4HR #30 tab 04/24/16 Unknown Rx 5/325] Active Meds: Active Medications Acetaminophen (Acetaminophen 325 Mg Tab) 650 mg PO Q4H PRN PRN Reason: Pain MILD(1-3)/Fever >100.5/TUBBS Allopurinol (Allopurinol 100 Mg Tab) 100 mg PO QDAY [facility] Last Admin: 09/20/20 11:38 Dose: 100 mg Documented by: Calcium Acetate (Calcium Acetate 667 Mg Cap) 2,001 mg PO TIDWM [facility] Last Admin: 09/20/20 11:37 Dose: 2,001 mg Documented by: Colchicine (Colchicine 0.6 Mg Cap) 0.6 mg PO QOD [facility] Last Admin: 09/20/20 11:38 Dose: 0.6 mg Documented by: Colesevelam HCl (Colesevelam 625 Mg Tab) 625 mg PO BIDDIAB [facility] Last Admin: 09/20/20 09:04 Dose: 625 mg Documented by: Fludrocortisone Acetate (Fludrocortisone 0.1 Mg Tab) 0.1 mg PO QDAY [facility] Last Admin: 09/20/20 10:26 Dose: 0.1 mg Documented by: Hydromorphone HCl (Hydromorphone 1 Mg/1 Ml Inj) 0.25 mg IV Q3H PRN PRN Reason: Pain, Moderate (4-6) Ceftriaxone Sodium (Rocephin/Ns 1 Gm/50 Ml) 1 gm in 50 mls @ 100 mls/hr IV Q24H [facility]; Protocol Last Admin: 09/20/20 10:26 Dose: 100 mls/hr Documented by: Lanthanum Carbonate (Lanthanum Carbonate 500 Mg Tab) 1,000 mg PO TIDWM [facility] Last Admin: 09/20/20 11:38 Dose: 1,000 mg Documented by: Levetiracetam (Levetiracetam 500 Mg Tab) 500 mg PO BID [facility] Last Admin: 09/20/20 10:25 Dose: 500 mg Documented by: Metoclopramide HCl (Metoclopramide 10 Mg/2 Ml Inj) 2.5 mg IV Q6H PRN PRN Reason: Nausea And Vomiting Midodrine (Midodrine 5 Mg Tab) 10 mg PO TID@0800,1200,1600 [facility] Last Admin: 09/20/20 11:38 Dose: 10 mg Documented by: Ondansetron HCl (Ondansetron 4 Mg/2 Ml Inj) 4 mg IV Q3H PRN PRN Reason: Nausea And Vomiting Oxycodone/Acetaminophen (Oxycodone /Acetaminophen 5-325mg Tab) 1 tab PO Q4HR [facility] Last Admin: 09/20/20 10:25 Dose: 1 tab Documented by: Pantoprazole Sodium (Pantoprazole 20 Mg Tab) 20 mg PO QDAY [facility] Last Admin: 09/20/20 10:26 Dose: 20 mg Documented by: Potassium Chloride (Potassium Chloride Er 20 Meq Tab) 20 meq PO DAILY [facility] Last Admin: 09/20/20 10:25 Dose: 20 meq Documented by: Promethazine HCl (Promethazine 25 Mg Tab) 25 mg PO TID PRN PRN Reason: Nausea Sodium Chloride (Sodium Chloride 0.9% 10 Ml Flush Syringe) 10 ml IV BID [facility] Last Admin: 09/20/20 10:25 Dose: 10 ml Documented by: Sodium Chloride (Sodium Chloride 0.9% 10 Ml Flush Syringe) 10 ml IV PRN PRN PRN Reason: LINE FLUSH Warfarin Sodium (Warfarin 2 Mg Tab) 4 mg PO MoWeFr@1700 [facility] Exam - Vital Signs Vital signs: Vital Signs Temp Pulse Resp BP 979 F H 100 H 20 58/26 09/19/20 11:37 09/19/20 11:37 09/19/20 11:37 09/19/20 11:37 - Physical Exam Narrative exam: Exam deferred due to COVID-19 pandemic and need to limit PPE overuse. Results - Lab Results 09/20/20 05:23 09/20/20 05:23 Most recent lab results Calcium 6.4 mg/dL (8.4-10.2) L D 09/20/20 05:23 Magnesium 2.10 mg/dL (1.7-2.3) 09/19/20 14:35 Assessment and Plan This is a 35 year old man who presents with weakness, fever, concern for COVID- 19 # ESRD: hold HD for today given reasonable lytes and potentially thrombosed AVG, appreciate vascular input. Plan for HD once more stable, likely tomorrow unless clinically worsens - daily labs, ok to supplement K prn - renally dose meds - avoid nephrotoxins - renal diet # Anemia: last hemoglobin at goal, no immediate indication for ESAs with HD # Hypotension: continue midodrine, UF only as tolerated. BP remains very low, usually 80/60 at baseline # Secondary Hyperparathyroidism: continue home binders as needed # SIRS: management per primary, COVID rule out pending # Seizures: on Keppra
--- NOTE | 2020-09-20 13:59 | Vascular Lab Report ---
Limited right upper extremity vascular Ultrasound HISTORY: right upper extremity AV access, evaluation. 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 TECHNIQUE: Grayscale and color imaging performed. COMPARISON: None. FINDINGS: The axillary artery proximal to the graft is patent with peak systolic velocity of 102 cm/s . Closer to the graft, peak systolic velocity on the arterial side becomes elevated to 744 cm/s. The depth from the skin surface at this level is 2.3 cm. Along the arterial side of graft, peak systolic velocity and depth to graft from the skin surface are as follows: Proximal biceps region 135 cm/s, 2 cm; proximal/mid biceps to 139 cm/s, 1 cm; mid biceps 139 cm/s, 0.5 cm; and distal biceps 135 cm/s, 0.4 cm. Along the venous side of the graft, peak systolic velocity and depth to graft from the skin surface a re as follows: Distal biceps 146 cm/s, 0.3 cm; mid biceps 192 cm/s, 0.4 cm; proximal biceps 135 cm/s, 0.1 cm; axilla 107 cm/s, 0.2 cm; and distal anastomotic site 396 cm/s, 1.4 cm. The right subclavian vein is patent with peak systolic velocity of 45 cm/s. Volume flow analysis near the outflow is 609-863 mL/m. IMPRESSION: Widely patent right upper extremity AV graft with velocity and depth from skin surface me asurements as outlined above. There is elevated peak systolic velocity along the arterial side of the graft near the proximal anastomosis which may be seen with stenosis. Signer Name: Bowen Roy MD Signed: 09/20/2020 1:54 PM Workstation Name: [id number]
--- NOTE | 2020-09-20 15:30 | Progress Note ---
Assessment and Plan - Patient Problems (1) Sepsis Current Visit: No Status: Acute Plan to address problem: -Presented with tachycardia, leukocytosis, subtle patchy groundglass densities on CT -09/20 CT abdomen/pelvis shows subtle patchy groundglass densities in the lower lung zones concerning for atypical infection -09/20 COVID-19 PCR positive -09/19 blood cultures x2 pending -Patient is consulted, patient recommendations -Antibiotic therapy (2) Suspected 2019 novel coronavirus infection Current Visit: Yes Status: Acute Plan to address problem: -09/20 CT abdomen/pelvis shows subtle patchy groundglass densities in the lower lung zones concerning for atypical infection -09/20 COVID-19 PCR positive -Droplet/isolation precautions -Infectious disease consulted, patient recommendations -Antibiotic therapy -Anticoagulation per protocol -Trend COVID-19 inflammatory markers for risk stratification -OOB 3 times daily as needed -Pulmonary hygiene -Supplementary oxygenation as needed -SPO2 monitoring -Patient will not be a candidate for remdesivir therapy given ESRD (3) Elevated d-dimer Current Visit: Yes Status: Acute Plan to address problem: -Patient presented with a D-dimer of 933 -09/20 bilateral lower extremity Doppler ultrasound pending (4) 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 Elevated peak systolic blood velocity along the arterial side of the graft near the proximal anastomosis which may be seen with stenosis (5) Hypochloremic alkalosis Current Visit: Yes Status: Acute Plan to address problem: -Presented with chloride 73, CO2 36 -09/20 chloride 77, CO2 33 -Patient is ESRD on HD -HD per nephrology -Trend BMP (6) Hypokalemia Current Visit: Yes Status: Acute Plan to address problem: -Presented with a potassium of 2.7, 09/20 K 2.5 -Repleted with 60 mEq of potassium -Trend BMP -Replete as necessary (7) Hypocalcemia Current Visit: No Status: Acute Plan to address problem: -Presented with a calcium of 7.6, 1/5 calcium 6.4 -Nephrology consulted -Trend BMP -HD per nephrology (8) Leukocytosis Current Visit: No Status: Acute Qualifiers: Leukocytosis type: unspecified Qualified Code(s): D72.829 - Elevated white blood cell count, unspecified Plan to address problem: -Presented with WBC of 11.5 -CT abdomen/pelvis shows subtle patchy groundglass densities in the lower lung zones concerning for atypical infection -09/20 COVID-19 PCR positive -Trend CBC (9) ESRD on dialysis Current Visit: Yes Status: Chronic Plan to address problem: -Nephrology consulted -HD per nephrology team -Strict intake and output -Daily weights -Avoid nephrotoxic medications -Renally dose medications (10) Seizure disorder Current Visit: No Status: Chronic Plan to address problem: -Continue home antiepileptic -Aspiration/seizure precautions -Supportive care (11) GERD (gastroesophageal reflux disease) Current Visit: Yes Status: Chronic Plan to address problem: -Continue home PPI (12) DVT prophylaxis Current Visit: Yes Status: Acute Plan to address problem: -SCDs to bilateral lower extremities while in bed -Heparin subcu History Interval history: This is a 35-year-old patient male end-stage renal disease on HD, hypotension on midodrine, chronic diarrhea, s/p PEG tube for which he self administers normal saline (unknown amount for persistent hypotension), multiple right upper extremity graft revisions with lifelong Coumadin (reported by the patient) and GERD who presented to the emergency department on 09/19 for shortness of breath, weakness and diarrhea. Patient reported subjective for fever. Upon presentation to the emergency department he had tachycardia, hypotension (which is chronic for the patient), leukocytosis, hyponatremia, hypokalemia, hypochloremia alkalosis, elevated BUN/creatinine, and a CT abdomen/pelvis without contrast showed suntle scattered lung opacities in the lung bases concerning for bilateral infection with slightly prominent with moderate fluid and gas: Without evidence of bowel obstruction and chronic renal parenchymal disease with multiple renal cyst seen. Patient was admitted to the hospital service with consults to infectious disease, vascular surgery and nephrology as a COVID-19 PUI. This morning the time of my examination patient was hypotensive but alert and oriented and interactive. Patient stated that he self administers normal saline boluses through his PEG to prevent hypotension but does not know the amount. Today his COVID-19 PCR resulted as positive. Vascular surgery ordered a upper extremity Doppler ultrasound to assess for AV graft thrombosis. Hospitalist Physical - Constitutional Vitals: Temp Pulse Resp BP Pulse Ox 979 F H 45 L 14 68/34 100 09/19/20 11:37 09/20/20 05:00 09/20/20 05:00 09/20/20 05:00 09/20/20 05:00 General appearance: Present: no acute distress, well-nourished - EENT Eyes: Present: irregular pupil ENT: hearing decreased, poor dentition - Neck Neck: Present: normal ROM - Respiratory Respiratory effort: normal Respiratory: bilateral: diminished - Cardiovascular Rhythm: regular Heart Sounds: Present: S1 & S2. Absent: systolic murmur, diastolic murmur - Extremities Extremities: no ischemia, pulses intact, pulses symmetrical, No edema, normal temperature, normal color, Full ROM Peripheral Pulses: within normal limits - Abdominal General gastrointestinal: soft, non-tender, non-distended, normal bowel sounds - Integumentary Integumentary: Present: warm, dry - Psychiatric Psychiatric: cooperative - Neurologic Neurologic: CNII-XII intact, no focal deficits, moves all extremities - Allied Health Allied health notes reviewed: nursing HEART Score - HEART Score Troponin: Troponin T 0.014 ng/mL (0.00-0.029) 09/19/20 14:35 Results - Labs CBC & Chem 7: 09/20/20 05:23 09/20/20 05:23 Labs: Laboratory Last Values WBC 9.2 K/mm3 (4.5-11.0) 09/20/20 05:23 RBC 5.14 M/mm3 (3.65-5.03) H 09/20/20 05:23 Hgb 9.8 gm/dl (11.8-15.2) L 09/20/20 05:23 Hct 30.1 % (35.5-45.6) L D 09/20/20 05:23 MCV 59 fl (84-94) L 09/20/20 05:23 MCH 19 pg (28-32) L 09/20/20 05:23 MCHC 33 % (32-34) 09/20/20 05:23 RDW 16.5 % (13.2-15.2) H 09/20/20 05:23 Plt Count 145 K/mm3 (140-440) 09/20/20 05:23 Lymph % (Auto) 32.3 % (13.4-35.0) 09/20/20 05:23 Lee % (Auto) 4.9 % (0.0-7.3) 09/20/20 05:23 Eos % (Auto) 0.0 % (0.0-4.3) 09/20/20 05:23 Baso % (Auto) 0.1 % (0.0-1.8) 09/20/20 05:23 Lymph # (Auto) 3.0 K/mm3 (1.2-5.4) 09/20/20 05:23 Lee # (Auto) 0.5 K/mm3 (0.0-0.8) 09/20/20 05:23 Eos # (Auto) 0.0 K/mm3 (0.0-0.4) 09/20/20 05:23 Baso # (Auto) 0.0 K/mm3 (0.0-0.1) 09/20/20 05:23 Seg Neutrophils % 62.7 % (40.0-70.0) 09/20/20 05:23 Seg Neutrophils # 5.8 K/mm3 (1.8-7.7) 09/20/20 05:23 PT 13.2 Sec. (12.2-14.9) 09/19/20 13:20 INR 1.02 (0.87-1.13) 09/19/20 13:20 APTT 38.3 Sec. (24.2-36.6) H 09/19/20 13:20 D-Dimer 933.77 ng/mlDDU (0-234) H 09/19/20 13:20 Sodium 134 mmol/L (137-145) L 09/20/20 05:23 Potassium 2.5 mmol/L (3.6-5.0) L* 09/20/20 05:23 Chloride 77.7 mmol/L (98-107) L 09/20/20 05:23 Carbon Dioxide 33 mmol/L (22-30) H 09/20/20 05:23 Anion Gap 26 mmol/L 09/20/20 05:23 BUN 75 mg/dL (9-20) H 09/20/20 05:23 Creatinine 17.1 mg/dL (0.8-1.3) H 09/20/20 05:23 Estimated GFR 3 ml/min 09/20/20 05:23 BUN/Creatinine Ratio 4 % 09/20/20 05:23 Glucose 111 mg/dL (75-100) H 09/20/20 05:23 Hemoglobin A1c 4.8 % (4-6) 09/20/20 05:23 Lactic Acid 1.20 mmol/L (0.7-2.0) 09/20/20 05:23 Calcium 6.4 mg/dL (8.4-10.2) L D 09/20/20 05:23 Magnesium 2.10 mg/dL (1.7-2.3) 09/19/20 14:35 Ferritin 2699.0 ng/mL (30.0-300.0) H 09/19/20 13:20 Total Bilirubin 0.30 mg/dL (0.1-1.2) 09/20/20 05:23 AST 29 units/L (5-40) 09/20/20 05:23 ALT 8 units/L (7-56) 09/20/20 05:23 Alkaline Phosphatase 56 units/L (35-129) 09/20/20 05:23 Lactate Dehydrogenase 235 units/L (91-180) H 09/19/20 14:35 Total Creatine Kinase 114 units/L (55-170) 09/19/20 14:35 Troponin T 0.014 ng/mL (0.00-0.029) 09/19/20 14:35 C-Reactive Protein 7.80 mg/dL (0.00-1.30) H 09/19/20 14:35 Total Protein 6.4 g/dL (6.3-8.2) 09/20/20 05:23 Albumin 3.4 g/dL (3.9-5) L 09/20/20 05:23 Albumin/Globulin Ratio 1.1 % 09/20/20 05:23 Procalcitonin 4.84 ng/mL (<0.15) 09/19/20 13:20 Coronavirus (PCR) Positive (Negative) A 09/20/20 Unknown Microbiology: Microbiology 09/19/20 13:20 Peripheral/Venous Blood Culture - Preliminary NO GROWTH AFTER 24 HOURS 09/19/20 13:20 Peripheral/Venous Blood Culture - Preliminary NO GROWTH AFTER 24 HOURS [place]/IV: IV Catheter Type [Left INT / Saline Lock External Jugular] Active Medications - Current Medications Current Medications: Generic Name Dose Route Start Last Admin Trade Name Freq PRN Reason Stop Dose Admin Acetaminophen 650 mg 09/20/20 02:33 Acetaminophen 325 Mg Tab PO Q4H PRN Pain MILD(1-3)/Fever >100.5/TUBBS Allopurinol 100 mg 09/20/20 10:00 09/20/20 11:38 Allopurinol 100 Mg Tab PO 100 mg QDAY ALONSO Administration Calcium Acetate 2,001 mg 09/20/20 08:00 09/20/20 11:37 Calcium Acetate 667 Mg Cap PO 2,001 mg TIDWM ALONSO Administration Colchicine 0.6 mg 09/20/20 10:00 09/20/20 11:38 Colchicine 0.6 Mg Cap PO 0.6 mg QOD ALONSO Administration Colesevelam HCl 625 mg 09/20/20 08:00 09/20/20 09:04 Colesevelam 625 Mg Tab PO 625 mg BIDDIAB ALONSO Administration Fludrocortisone Acetate 0.1 mg 09/20/20 10:00 09/20/20 10:26 Fludrocortisone 0.1 Mg Tab PO 0.1 mg QDAY ALONSO Administration Hydromorphone HCl 0.25 mg 09/20/20 02:33 Hydromorphone 1 Mg/1 Ml Inj IV Q3H PRN Pain, Moderate (4-6) Ceftriaxone Sodium 1 gm in 50 mls @ 100 mls/hr 09/20/20 10:00 09/20/20 10:26 Rocephin/Ns 1 Gm/50 Ml IV 100 mls/hr Q24H ALONSO Administration Protocol Lanthanum Carbonate 1,000 mg 09/20/20 08:00 09/20/20 11:38 Lanthanum Carbonate 500 Mg Tab PO 1,000 mg TIDWM ALONSO Administration Levetiracetam 500 mg 09/20/20 03:00 09/20/20 10:25 Levetiracetam 500 Mg Tab PO 500 mg BID ALONSO Administration Metoclopramide HCl 2.5 mg 09/20/20 02:51 Metoclopramide 10 Mg/2 Ml Inj IV Q6H PRN Nausea And Vomiting Midodrine 10 mg 09/20/20 08:00 09/20/20 11:38 Midodrine 5 Mg Tab PO 10 mg TID@0800,1200,1600 ALONSO Administration Ondansetron HCl 4 mg 09/20/20 02:33 Ondansetron 4 Mg/2 Ml Inj IV Q3H PRN Nausea And Vomiting Oxycodone/Acetaminophen 1 tab 09/20/20 03:00 09/20/20 14:16 Oxycodone /Acetaminophen 5-325mg Tab PO 1 tab Q4HR ALONSO Administration Pantoprazole Sodium 20 mg 09/20/20 10:00 09/20/20 10:26 Pantoprazole 20 Mg Tab PO 20 mg QDAY ALONSO Administration Potassium Chloride 20 meq 09/20/20 10:00 09/20/20 10:25 Potassium Chloride Er 20 Meq Tab PO 20 meq DAILY ALONSO Administration Promethazine HCl 25 mg 09/20/20 02:30 Promethazine 25 Mg Tab PO TID PRN Nausea Sodium Chloride 10 ml 09/20/20 10:00 09/20/20 10:25 Sodium Chloride 0.9% 10 Ml Flush Syringe IV 10 ml BID ALONSO Administration Sodium Chloride 10 ml 09/20/20 02:33 Sodium Chloride 0.9% 10 Ml Flush Syringe IV PRN PRN LINE FLUSH Warfarin Sodium 4 mg 09/21/20 17:00 Warfarin 2 Mg Tab PO MoWeFr@1700 [facility] Nutrition/Malnutrition Assess - Dietary Evaluation Nutrition/Malnutrition Findings: Nutrition Notes Start: 09/20/20 11:48 Freq: Status: Active Protocol: Document 09/20/20 11:48 (Rec: 09/20/20 11:51 [id number]) Nutrition Notes Need for Assessment generated from: Education Initial or Follow up Brief Note Current Diagnosis CKD (stage V CKD) Other Pertinent Diagnosis SIRS, seizure disorder, COVID PUI Current Diet Renal Labs/Tests K 2.5 Pertinent Medications Coumadin Subjective/Other Information Screen for Coumadin education. Pt on hold in ED. Nutrition Intervention Follow-Up By: 09/22/20 Additional Comments FU for Coumadin education
[2020-09-20 16:17] LABS: Hepatitis B Surface Antigen Non-Reactive (Negative); Hepatitis C Virus Antibody Non-Reactive (NonReactive)
--- NOTE | 2020-09-20 16:23 | Consultation ---
History of Present Illness - Reason for Consult Consult date: 09/20/20 - History of Present Illness 35-year-old man past medical history end-stage renal disease on hemodialysis and GERD presented to hospital with shortness of breath and weakness. His symptoms have been progressive since onset and are associated with fever 201. Symptoms began approximately 1 day prior to admission. Complains of chronic diarrhea. Afebrile since admission with a white count of 11.5 on admission, now normal. Covid testing positive. Blood cultures currently pending. Currently on ceftriaxone. Imaging personally reviewed: CT abdomen pelvis: Scattered lung opacities at lung bases. Possible g astroenteritis. Chest x-ray: No acute findings. Review of systems: Deferred due to PPE conservation strategy. Past History Past Medical History: ESRD Past Surgical History: No surgical history Social history: no significant social history Family history: no significant family history Medications and Allergies Allergies Allergy/AdvReac Type Severity Reaction Status Date / Time Iodine and Iodide Containing Allergy Swelling Verified 03/24/17 08:47 Produc povidone-iodine Allergy Swelling Verified 03/24/17 08:47 [From Betadine] soap [From Betadine] Allergy Swelling Verified 03/24/17 08:47 Iodinated Contrast Media AdvReac Swelling Verified 03/24/17 08:47 [Iodinated Contrast Media - IV Dye] IV Contrast AdvReac Swelling Uncoded 03/24/17 08:47 Home Medications Medication Instructions Recorded Confirmed Last Taken Type Calcium Acetate [Phoslo] 1,000 mg PO TID 10/11/15 04/24/16 04/23/16 History 1000 mg Colesevelam [Welchol] 625 mg PO BID 10/11/15 04/24/16 04/23/16 History 625 mg Fludrocortisone [Florinef] 0.1 mg PO QDAY 10/11/15 04/24/16 04/23/16 History Lanthanum Carbonate [Fosrenol] 1,000 mg PO TID 10/11/15 04/24/16 04/23/16 History 1000 mg Midodrine HCl 10 mg PO TID 10/11/15 04/24/16 04/24/16 04:30 History 10 mg Omeprazole [PriLOSEC] 20 mg PO QDAY 10/11/15 04/24/16 04/23/16 History 20 mg Potassium Chloride [Klor-Con 10] 20 meq PO DAILY 10/11/15 04/24/16 04/23/16 History 20 meq Promethazine [Phenergan] 25 mg PO TID PRN 10/11/15 04/16/16 02/24/16 History 25 mg Warfarin Sodium [Coumadin] 4 mg PO 3XW 10/11/15 04/24/16 04/23/16 History 4 mg allopurinoL [Zyloprim] 100 mg PO QDAY 10/11/15 04/24/16 04/23/16 History 100 mg levETIRAcetam [Keppra TAB] 500 mg PO BID 10/11/15 04/24/16 04/24/16 04:30 History 500 mg Colchicine [Colcrys] 0.6 mg PO QDAY 04/16/16 04/24/16 Unknown History oxyCODONE /ACETAMINOPHEN [Percocet 1 tab PO Q4HR #30 tab 04/24/16 Unknown Rx 5/325] Active Meds: Active Medications Acetaminophen (Acetaminophen 325 Mg Tab) 650 mg PO Q4H PRN PRN Reason: Pain MILD(1-3)/Fever >100.5/TUBBS Allopurinol (Allopurinol 100 Mg Tab) 100 mg PO QDAY [facility] Last Admin: 09/20/20 11:38 Dose: 100 mg Documented by: Calcium Acetate (Calcium Acetate 667 Mg Cap) 2,001 mg PO TIDWM [facility] Last Admin: 09/20/20 11:37 Dose: 2,001 mg Documented by: Colchicine (Colchicine 0.6 Mg Cap) 0.6 mg PO QOD [facility] Last Admin: 09/20/20 11:38 Dose: 0.6 mg Documented by: Colesevelam HCl (Colesevelam 625 Mg Tab) 625 mg PO BIDDIAB [facility] Last Admin: 09/20/20 09:04 Dose: 625 mg Documented by: Fludrocortisone Acetate (Fludrocortisone 0.1 Mg Tab) 0.1 mg PO QDAY [facility] Last Admin: 09/20/20 10:26 Dose: 0.1 mg Documented by: Hydromorphone HCl (Hydromorphone 1 Mg/1 Ml Inj) 0.25 mg IV Q3H PRN PRN Reason: Pain, Moderate (4-6) Ceftriaxone Sodium (Rocephin/Ns 1 Gm/50 Ml) 1 gm in 50 mls @ 100 mls/hr IV Q24H [facility]; Protocol Last Admin: 09/20/20 10:26 Dose: 100 mls/hr Documented by: Lanthanum Carbonate (Lanthanum Carbonate 500 Mg Tab) 1,000 mg PO TIDWM [facility] Last Admin: 09/20/20 11:38 Dose: 1,000 mg Documented by: Levetiracetam (Levetiracetam 500 Mg Tab) 500 mg PO BID [facility] Last Admin: 09/20/20 10:25 Dose: 500 mg Documented by: Metoclopramide HCl (Metoclopramide 10 Mg/2 Ml Inj) 2.5 mg IV Q6H PRN PRN Reason: Nausea And Vomiting Midodrine (Midodrine 5 Mg Tab) 10 mg PO TID@0800,1200,1600 [facility] Last Admin: 09/20/20 11:38 Dose: 10 mg Documented by: Ondansetron HCl (Ondansetron 4 Mg/2 Ml Inj) 4 mg IV Q3H PRN PRN Reason: Nausea And Vomiting Oxycodone/Acetaminophen (Oxycodone /Acetaminophen 5-325mg Tab) 1 tab PO Q4HR [facility] Last Admin: 09/20/20 14:16 Dose: 1 tab Documented by: Pantoprazole Sodium (Pantoprazole 20 Mg Tab) 20 mg PO QDAY [facility] Last Admin: 09/20/20 10:26 Dose: 20 mg Documented by: Potassium Chloride (Potassium Chloride Er 20 Meq Tab) 20 meq PO DAILY [facility] Last Admin: 09/20/20 10:25 Dose: 20 meq Documented by: Promethazine HCl (Promethazine 25 Mg Tab) 25 mg PO TID PRN PRN Reason: Nausea Sodium Chloride (Sodium Chloride 0.9% 10 Ml Flush Syringe) 10 ml IV BID [facility] Last Admin: 09/20/20 10:25 Dose: 10 ml Documented by: Sodium Chloride (Sodium Chloride 0.9% 10 Ml Flush Syringe) 10 ml IV PRN PRN PRN Reason: LINE FLUSH Warfarin Sodium (Warfarin 2 Mg Tab) 4 mg PO MoWeFr@1700 [facility] Physical Examination - Physical Exam Narrative exam: Physical exam deferred due to PPE conservation strategy. Please refer to primary team's note. - Constitutional Vitals: Vital Signs Temp Pulse Resp BP Pulse Ox 979 F H 45 L 14 68/34 100 01/04/21 11:37 09/20/20 05:00 09/20/20 05:00 09/20/20 05:00 09/20/20 05:00 Results - Labs CBC & Chem 7: 09/20/20 05:23 09/20/20 05:23 Labs: Abnormal lab results 09/19/20 09/19/20 09/20/20 Range/Units 16:04 19:52 05:23 RBC 5.14 H (3.65-5.03) M/mm3 Hgb 9.8 L (11.8-15.2) gm/dl Hct 30.1 L D (35.5-45.6) % MCV 59 L (84-94) fl MCH 19 L (28-32) pg RDW 16.5 H (13.2-15.2) % Sodium (137-145) mmol/L Potassium (3.6-5.0) mmol/L Chloride (98-107) mmol/L Carbon Dioxide (22-30) mmol/L BUN (9-20) mg/dL Creatinine (0.8-1.3) mg/dL Glucose (75-100) mg/dL Lactic Acid 2.80 H* 2.60 H* (0.7-2.0) mmol/L Calcium (8.4-10.2) mg/dL Albumin (3.9-5) g/dL Coronavirus (PCR) (Negative) 09/20/20 09/20/20 Range/Units 05:23 Unknown RBC (3.65-5.03) M/mm3 Hgb (11.8-15.2) gm/dl Hct (35.5-45.6) % MCV (84-94) fl MCH (28-32) pg RDW (13.2-15.2) % Sodium 134 L (137-145) mmol/L Potassium 2.5 L* (3.6-5.0) mmol/L Chloride 77.7 L (98-107) mmol/L Carbon Dioxide 33 H (22-30) mmol/L BUN 75 H (9-20) mg/dL Creatinine 17.1 H (0.8-1.3) mg/dL Glucose 111 H (75-100) mg/dL Lactic Acid (0.7-2.0) mmol/L Calcium 6.4 L D (8.4-10.2) mg/dL Albumin 3.4 L (3.9-5) g/dL Coronavirus (PCR) Positive A (Negative) Assessment and Plan Cultures: Blood culture pending A/P: 35 yo M PMhx ESRD on HD presents with COVID, possible thrombosed access #COVID-19 pneumonia: Not a candidate for Remdesivir due to ESRD. Appears to be saturating well #ESRD on HD: renally dose medications #Gastroenteritis: unclear etiology. Receiving ceftriaxone. Recs: -If patient becomes hypoxic please start dexamethasone 6mg q24h for 10 days -Not a candidate for Remdesivir -Continue ceftriaxone 2g q24h to complete 5 days as procalcitonin not reliable in the setting of HD. -Anticoagulation per hospital protocol -Proning as able. Thank you for the consult, we will continue to follow. Gianni Becerra MD [facility] ([facility] O: [phone] F: [phone]
[2020-09-21] MEDS: oxyCODONE /ACETAMINOPHEN 5-325MG TAB PO SCH ×6 (03:00→23:43)
[2020-09-21] MEDS ORDERED: SODIUM CHLORIDE 0.9% 100 ML IV PRN (07:19)
[2020-09-21] MEDS: LANTHANUM CARBONATE 500 MG TAB PO SCH ×3 (08:46→17:52)
[2020-09-21] MEDS: CALCIUM ACETATE 667 MG CAP PO SCH ×3 (08:46→17:54)
[2020-09-21] MEDS: COLESEVELAM 625 MG TAB PO SCH ×2 (08:47→17:55)
[2020-09-21] MEDS: MIDODRINE 5 MG TAB PO SCH ×4 (08:48→21:38)
--- NOTE | 2020-09-21 09:40 | Event Note ---
Date: 09/21/20 Ultrasound of AVG demonstrates that the graft is patent. There is an elevated velocity at the arterial anastamosis which may represent a stenosis however would not recommend elective fistulagram with intervention at this time given his + COVID status as well as his condition. Will continue to follow and can be managed as an outpatient unless absolutely necessary to intervene as an inpatient for complications associated with dialysis.
[2020-09-21 10:52] LABS: Hematocrit 28.9 % (35.5-45.6); Hemoglobin 9.9 gm/dl (11.8-15.2); Mean Corpuscular HGB Conc 34 % (32-34); Red Blood Count 5.16 M/mm3 (3.65-5.03); Red Cell Distribution Width 16.1 % (13.2-15.2)
[2020-09-21 10:58] LABS: Mean Corpuscular Volume 56 fl (84-94); Platelet Count 175 K/mm3 (140-440)
[2020-09-21 11:02] LABS: INR 1.6 (0.87-1.13)
[2020-09-21 11:41] LABS: Calcium 5.5 mg/dL (8.4-10.2)
[2020-09-21 11:47] LABS: Anisocytosis 1+; Hypochromasia 2+; Poikilocytosis 1+; Total Cells Counted 100
[2020-09-21 11:48] LABS: Platelet Estimate Consistent w Auto; Target Cells 1+; Tear Drop Cells Rare
--- NOTE | 2020-09-21 11:55 | Progress Note ---
Assessment and Plan This is a 35 year old man who presents with weakness, fever, concern for COVID- 19 # ESRD: restart HD today given clinical stability. AVG patent per duplex, appreciate vascular input. Plan to continue HD MWF - daily labs, ok to supplement K prn, use 3K bath given hypokalemia - renally dose meds - avoid nephrotoxins - renal diet # Anemia: last hemoglobin at goal, no immediate indication for ESAs with HD # Hypotension: continue midodrine, UF only as tolerated. BP remains very low, usually 80/60 at baseline # Secondary Hyperparathyroidism: continue home binders as needed, will use 3meq Ca bath given hypocalcemia, may need IV calcium gluconate # SIRS: management per primary, COVID +, ID recs appreciated # Seizures: on Keppra Subjective Date of service: 09/21/20 Interval history: Had AVG duplex done. No acute changes per review Objective - Exam Narrative Exam: Exam deferred due to COVID-19 pandemic and need to limit PPE overuse. - Vital Signs Vital signs: Vital Signs - 12hr 09/21/20 09/21/20 09/21/20 00:00 01:00 01:54 Temperature Pulse Rate 50 L 47 L 52 L Respiratory 16 23 23 Rate Blood Pressure Blood Pressure 108/70 108/70 [Right] O2 Sat by Pulse Oximetry 09/21/20 09/21/20 09/21/20 02:34 10:00 10:15 Temperature 97.4 F L 97.4 F L Pulse Rate 58 L 58 L 58 L Respiratory 18 18 Rate Blood Pressure 94/33 94/33 94/33 Blood Pressure [Right] O2 Sat by Pulse 98 Oximetry 09/21/20 09/21/20 09/21/20 10:30 10:45 11:00 Temperature Pulse Rate 63 74 75 Respiratory Rate Blood Pressure 129/48 190/47 151/52 Blood Pressure [Right] O2 Sat by Pulse Oximetry 09/21/20 09/21/20 11:15 11:30 Temperature Pulse Rate 72 78 Respiratory Rate Blood Pressure 157/47 132/48 Blood Pressure [Right] O2 Sat by Pulse Oximetry - Lab 09/21/20 10:30 09/21/20 10:30 Most recent lab results Calcium 5.5 mg/dL (8.4-10.2) L* 09/21/20 10:30 Magnesium 2.10 mg/dL (1.7-2.3) 09/19/20 14:35 Medications & Allergies - Medications Allergies/Adverse Reactions: Allergies Iodine and Iodide Containing Produc Allergy (Verified 03/24/17 08:47) Swelling povidone-iodine [From Betadine] Allergy (Verified 03/24/17 08:47) Swelling soap [From Betadine] Allergy (Verified 03/24/17 08:47) Swelling Iodinated Contrast Media [Iodinated Contrast Media - IV Dye] Adverse Reaction (Verified 03/24/17 08:47) Swelling IV Contrast Adverse Reaction (Uncoded 03/24/17 08:47) Swelling Home Medications: Home Medications Medication Instructions Recorded Confirmed Last Taken Type Calcium Acetate [Phoslo] 1,000 mg PO TID 10/11/15 04/24/16 04/23/16 History 1000 mg Colesevelam [Welchol] 625 mg PO BID 10/11/15 04/24/16 04/23/16 History 625 mg Fludrocortisone [Florinef] 0.1 mg PO QDAY 10/11/15 04/24/16 04/23/16 History Lanthanum Carbonate [Fosrenol] 1,000 mg PO TID 10/11/15 04/24/16 04/23/16 History 1000 mg Midodrine HCl 10 mg PO TID 10/11/15 04/24/16 04/24/16 04:30 History 10 mg Omeprazole [PriLOSEC] 20 mg PO QDAY 10/11/15 04/24/16 04/23/16 History 20 mg Potassium Chloride [Klor-Con 10] 20 meq PO DAILY 10/11/15 04/24/16 04/23/16 History 20 meq Promethazine [Phenergan] 25 mg PO TID PRN 10/11/15 04/16/16 02/24/16 History 25 mg Warfarin Sodium [Coumadin] 4 mg PO 3XW 10/11/15 04/24/16 04/23/16 History 4 mg allopurinoL [Zyloprim] 100 mg PO QDAY 10/11/15 04/24/16 04/23/16 History 100 mg levETIRAcetam [Keppra TAB] 500 mg PO BID 10/11/15 04/24/16 04/24/16 04:30 History 500 mg Colchicine [Colcrys] 0.6 mg PO QDAY 04/16/16 04/24/16 Unknown History oxyCODONE /ACETAMINOPHEN [Percocet 1 tab PO Q4HR #30 tab 04/24/16 Unknown Rx 5/325] Active Medications: Generic Name Dose Route Start Last Admin Trade Name Freq PRN Reason Stop Dose Admin Acetaminophen 650 mg 09/20/20 02:33 Acetaminophen 325 Mg Tab PO Q4H PRN Pain MILD(1-3)/Fever >100.5/TUBBS Allopurinol 100 mg 09/20/20 10:00 09/20/20 11:38 Allopurinol 100 Mg Tab PO 100 mg QDAY ALONSO Administration Calcium Acetate 2,001 mg 09/20/20 08:00 09/21/20 08:46 Calcium Acetate 667 Mg Cap PO 2,001 mg TIDWM ALONSO Administration Colchicine 0.6 mg 09/20/20 10:00 09/20/20 11:38 Colchicine 0.6 Mg Cap PO 0.6 mg QOD ALONSO Administration Colesevelam HCl 625 mg 09/20/20 08:00 09/21/20 08:47 Colesevelam 625 Mg Tab PO 625 mg BIDDIAB ALONSO Administration Fludrocortisone Acetate 0.1 mg 09/20/20 10:00 09/20/20 10:26 Fludrocortisone 0.1 Mg Tab PO 0.1 mg QDAY ALONSO Administration Hydromorphone HCl 0.25 mg 09/20/20 02:33 Hydromorphone 1 Mg/1 Ml Inj IV Q3H PRN Pain, Moderate (4-6) Ceftriaxone Sodium 1 gm in 50 mls @ 100 mls/hr 09/20/20 10:00 09/20/20 10:26 Rocephin/Ns 1 Gm/50 Ml IV 100 mls/hr Q24H ALONSO Administration Protocol Sodium Chloride 100 mls @ 999 mls/hr 09/21/20 07:19 Nacl 0.9% IV DOUG PRN Hypotension Lanthanum Carbonate 1,000 mg 09/20/20 08:00 09/21/20 08:46 Lanthanum Carbonate 500 Mg Tab PO 1,000 mg TIDWM ALONSO Administration Levetiracetam 500 mg 09/20/20 03:00 09/20/20 21:39 Levetiracetam 500 Mg Tab PO 500 mg BID ALONSO Administration Metoclopramide HCl 2.5 mg 09/20/20 02:51 Metoclopramide 10 Mg/2 Ml Inj IV Q6H PRN Nausea And Vomiting Midodrine 10 mg 09/20/20 08:00 09/21/20 08:48 Midodrine 5 Mg Tab PO 10 mg TID@0800,1200,1600 ALONSO Administration Ondansetron HCl 4 mg 09/20/20 02:33 09/21/20 08:54 Ondansetron 4 Mg/2 Ml Inj IV 4 mg Q3H PRN Administration Nausea And Vomiting Oxycodone/Acetaminophen 1 tab 09/20/20 03:00 09/21/20 11:47 Oxycodone /Acetaminophen 5-325mg Tab PO 1 tab Q4HR ALONSO Administration Pantoprazole Sodium 20 mg 09/20/20 10:00 09/20/20 10:26 Pantoprazole 20 Mg Tab PO 20 mg QDAY ALONSO Administration Potassium Chloride 20 meq 09/20/20 10:00 09/20/20 10:25 Potassium Chloride Er 20 Meq Tab PO 20 meq DAILY ALONSO Administration Promethazine HCl 25 mg 09/20/20 02:30 Promethazine 25 Mg Tab PO TID PRN Nausea Sodium Chloride 10 ml 09/20/20 10:00 09/20/20 21:40 Sodium Chloride 0.9% 10 Ml Flush Syringe IV 10 ml BID ALONSO Administration Sodium Chloride 10 ml 09/20/20 02:33 Sodium Chloride 0.9% 10 Ml Flush Syringe IV PRN PRN LINE FLUSH Warfarin Sodium 4 mg 09/21/20 17:00 Warfarin 2 Mg Tab PO [id number]@1700 [facility]
[2020-09-21] MEDS ORDERED: POTASSIUM CHLORIDE 20 MEQ PACKET FEEDTUBE SCH (13:00)
[2020-09-21] MEDS: cefTRIAXone/NS 2 GM/100 ML 2 GM/100 ML BAG IV SCH (15:21)
[2020-09-21] MEDS: POTASSIUM CHLORIDE 10 MEQ 10 MEQ/100 ML BAG IV SCH ×4 (15:22→20:55)
[2020-09-21] MEDS: allopurinoL 100 MG TAB PO SCH (15:22)
[2020-09-21] MEDS: levETIRAcetam 500 MG TAB PO SCH ×2 (15:23→21:36)
[2020-09-21] MEDS: FLUDROCORTISONE 0.1 MG TAB PO SCH (15:30)
[2020-09-21] MEDS: POTASSIUM CHLORIDE ER 20 MEQ TAB PO SCH (15:31)
[2020-09-21] MEDS: PANTOPRAZOLE 20 MG TAB PO SCH (15:32)
[2020-09-21] MEDS: POTASSIUM CHLORIDE 20 MEQ PACKET PO SCH ×2 (15:34→17:48)
--- NOTE | 2020-09-21 16:14 | Progress Note ---
Assessment and Plan Cultures: Blood culture no growth today A/P: 35 yo M PMhx ESRD on HD presents with COVID, possible thrombosed access #SIRS rule out sepsis: Elevated lactate and hypotension improving. Likely due to COVID-19 pneumonia. #COVID-19 pneumonia: Not a candidate for Remdesivir due to ESRD. Remains on room air. #ESRD on HD: renally dose medications #Gastroenteritis: unclear etiology. Receiving ceftriaxone. Recs: -If patient becomes hypoxic please start dexamethasone 6mg q24h for 10 days -Not a candidate for Remdesivir -Continue ceftriaxone 2g q24h to complete 5 days as procalcitonin not reliable in the setting of HD. -Anticoagulation per hospital protocol -Proning as able. will continue to follow. MD [facility] ([facility]) Office [phone] Subjective Date of service: 09/21/20 (\) Principal diagnosis: COVID Interval history: Patient remains on room air. No fever. No hypoxia overnight. Some hypotension. Objective - Exam Narrative Exam: Physical Exam: reviewed ED and hospitalist notes. Deferred to prevent COVID-19 transmission. - Constitutional Vitals: Vital Signs Temp Pulse Resp BP Pulse Ox 97.6 F 57 L 16 102/35 98 09/21/20 14:02 09/21/20 14:02 09/21/20 14:02 09/21/20 14:02 09/21/20 02:34 Temperature -Last 24 Hours Temperature 97.6 F Temperature 97.4 F Temperature 97.4 F - Labs CBC & Chem 7: 09/21/20 10:30 09/21/20 10:30 Labs: Abnormal lab results 09/20/20 09/21/20 09/21/20 Range/Units 15:24 10:30 10:30 WBC 12.9 H (4.5-11.0) K/mm3 RBC 5.16 H (3.65-5.03) M/mm3 Hgb 9.9 L (11.8-15.2) gm/dl Hct 28.9 L (35.5-45.6) % MCV 56 L (84-94) fl MCH 19 L (28-32) pg RDW 16.1 H (13.2-15.2) % Seg Neuts % (Manual) 96.0 H (40.0-70.0) % Lymphocytes % (Manual) 2.0 L (13.4-35.0) % Seg Neutrophils # Man 12.4 H (1.8-7.7) K/mm3 Lymphocytes # (Manual) 0.3 L (1.2-5.4) K/mm3 PT (12.2-14.9) Sec. INR (0.87-1.13) Sodium 135 L (137-145) mmol/L Potassium 3.3 L D 2.3 L* D (3.6-5.0) mmol/L Chloride 86.9 L (98-107) mmol/L BUN 80 H (9-20) mg/dL Creatinine 15.6 H (0.8-1.3) mg/dL Glucose 109 H (75-100) mg/dL Calcium 5.5 L* (8.4-10.2) mg/dL 09/21/20 Range/Units 10:30 WBC (4.5-11.0) K/mm3 RBC (3.65-5.03) M/mm3 Hgb (11.8-15.2) gm/dl Hct (35.5-45.6) % MCV (84-94) fl MCH (28-32) pg RDW (13.2-15.2) % Seg Neuts % (Manual) (40.0-70.0) % Lymphocytes % (Manual) (13.4-35.0) % Seg Neutrophils # Man (1.8-7.7) K/mm3 Lymphocytes # (Manual) (1.2-5.4) K/mm3 PT 18.9 H (12.2-14.9) Sec. INR 1.60 H (0.87-1.13) Sodium (137-145) mmol/L Potassium (3.6-5.0) mmol/L Chloride (98-107) mmol/L BUN (9-20) mg/dL Creatinine (0.8-1.3) mg/dL Glucose (75-100) mg/dL Calcium (8.4-10.2) mg/dL
--- NOTE | 2020-09-21 16:51 | Progress Note ---
Assessment and Plan - Patient Problems (1) Sepsis Current Visit: No Status: Acute Plan to address problem: -Presented with tachycardia, leukocytosis, subtle patchy groundglass densities on CT -09/20 CT abdomen/pelvis shows subtle patchy groundglass densities in the lower lung zones concerning for atypical infection -09/20 COVID-19 PCR positive -09/19 blood cultures x2 pending -Infectious disease consult, appreciate recommendations -Antibiotic therapy (2) Pneumonia due to COVID-19 virus Current Visit: Yes Status: Acute Plan to address problem: -09/20 CT abdomen/pelvis shows subtle patchy groundglass densities in the lower lung zones concerning for atypical infection -09/20 COVID-19 PCR positive -Droplet/isolation precautions -Infectious disease consulted, appreciate recommendations -Antibiotic therapy -Anticoagulation per protocol -Trend COVID-19 inflammatory markers for risk stratification -OOB 3 times daily as needed -Pulmonary hygiene -Supplementary oxygenation as needed -SPO2 monitoring -Patient will not be a candidate for remdesivir therapy given ESRD (3) Elevated d-dimer Current Visit: Yes Status: Acute Plan to address problem: -Patient presented with a D-dimer of 933 -09/20 bilateral lower extremity Doppler ultrasound negative for DVT/SVT (4) 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 Elevated peak systolic blood velocity along the arterial side of the graft near the proximal anastomosis which may be seen with stenosis -Acute inpatient patient does not need acute intervention at this time per vascular surgery -Patient need to follow-up with vascular surgery outpatient (5) Hypochloremic alkalosis Current Visit: Yes Status: Acute Plan to address problem: -Presented with chloride 73, CO2 36 -09/20 chloride 77, CO2 33 -Patient is ESRD on HD -HD per nephrology -Trend BMP -09/21: Chloride 86.9, CO2 25 (6) Hypokalemia Current Visit: Yes Status: Acute Plan to address problem: -Presented with a potassium of 2.7, 09/20 K 2.5, 09/21 K 2.3 -Repleted -Trend BMP (7) Hypocalcemia Current Visit: No Status: Acute Plan to address problem: -Presented with a calcium of 7.6, 09/20 calcium 6.4, 09/21 calcium 5.5 -Nephrology consulted -Trend BMP -HD per nephrology (8) Leukocytosis Current Visit: No Status: Acute Qualifiers: Leukocytosis type: unspecified Qualified Code(s): D72.829 - Elevated white blood cell count, unspecified Plan to address problem: -Presented with WBC of 11.5, 09/21 WBC 12.9 -CT abdomen/pelvis shows subtle patchy groundglass densities in the lower lung zones concerning for atypical infection -09/20 COVID-19 PCR positive -Trend CBC (9) ESRD on dialysis Current Visit: Yes Status: Chronic Plan to address problem: -Nephrology consulted -HD per nephrology team -Strict intake and output -Daily weights -Avoid nephrotoxic medications -Renally dose medications (10) Seizure disorder Current Visit: No Status: Chronic Plan to address problem: -Continue home antiepileptic -Aspiration/seizure precautions -Supportive care (11) GERD (gastroesophageal reflux disease) Current Visit: Yes Status: Chronic Plan to address problem: -Continue home PPI (12) Chronic diarrhea Current Visit: No Status: Chronic Plan to address problem: -Supportive care (13) DVT prophylaxis Current Visit: Yes Status: Acute Plan to address problem: -SCDs to bilateral lower extremities while in bed -Heparin subcu History Interval history: This is a 35-year-old patient male end-stage renal disease on HD, hypotension on midodrine, chronic diarrhea, s/p PEG tube for which he self administers normal saline (unknown amount for persistent hypotension), multiple right upper extremity graft revisions with lifelong Coumadin (reported by the patient) and GERD who presented to the emergency department on 09/19 for shortness of breath, weakness and diarrhea. Patient reported subjective for fever. Upon presentation to the emergency department he had tachycardia, hypotension (which is chronic for the patient), leukocytosis, hyponatremia, hypokalemia, hypochloremia alkalosis, elevated BUN/creatinine, and a CT abdomen/pelvis without contrast showed suntle scattered lung opacities in the lung bases concerning for bi lateral infection with slightly prominent with moderate fluid and gas: Without evidence of bowel obstruction and chronic renal parenchymal disease with multiple renal cyst seen. Patient was admitted to the hospital service with consults to infectious disease, vascular surgery and nephrology as a COVID-19 PUI. Patient received hemodialysis today. Patient is on room air and in no acute distress. Patient was hypokalemic again today which was repleted. 09/20: This morning the time of my examination patient was hypotensive but alert and oriented and interactive. Patient stated that he self administers normal saline boluses through his PEG to prevent hypotension but does not know the amount. Today his COVID-19 PCR resulted as positive. Vascular surgery ordered a upper extremity Doppler ultrasound to assess for AV graft thrombosis. Hospitalist Physical - Constitutional Vitals: Temp Pulse Resp BP Pulse Ox 97.6 F 57 L 16 102/35 98 09/21/20 14:02 09/21/20 14:02 09/21/20 14:02 09/21/20 14:02 09/21/20 02:34 General appearance: Present: no acute distress, well-nourished - EENT Eyes: Present: irregular pupil ENT: clear oral mucosa, poor dentition - Neck Neck: Present: normal ROM - Respiratory Respiratory effort: normal Respiratory: bilateral: diminished - Cardiovascular Rhythm: regular Heart Sounds: Present: S1 & S2. Absent: systolic murmur, diastolic murmur - Extremities Extremities: no ischemia, pulses intact, pulses symmetrical, No edema, normal temperature, normal color, Full ROM Peripheral Pulses: within normal limits - Abdominal General gastrointestinal: soft, non-tender, non-distended, normal bowel sounds - Integumentary Integumentary: Present: warm, dry - Psychiatric Psychiatric: appropriate mood/affect, cooperative - Neurologic Neurologic: CNII-XII intact, no focal deficits, moves all extremities - Allied Health Allied health notes reviewed: nursing HEART Score - HEART Score Troponin: Troponin T 0.014 ng/mL (0.00-0.029) 09/19/20 14:35 Results - Labs CBC & Chem 7: 09/21/20 10:30 09/21/20 10:30 Labs: Laboratory Last Values WBC 12.9 K/mm3 (4.5-11.0) H 09/21/20 10:30 RBC 5.16 M/mm3 (3.65-5.03) H 09/21/20 10:30 Hgb 9.9 gm/dl (11.8-15.2) L 09/21/20 10:30 Hct 28.9 % (35.5-45.6) L 09/21/20 10:30 MCV 56 fl (84-94) L 09/21/20 10:30 MCH 19 pg (28-32) L 09/21/20 10:30 MCHC 34 % (32-34) 09/21/20 10:30 RDW 16.1 % (13.2-15.2) H 09/21/20 10:30 Plt Count 175 K/mm3 (140-440) 09/21/20 10:30 Lymph % (Auto) 32.3 % (13.4-35.0) 09/20/20 05:23 [place] % (Auto) 4.9 % (0.0-7.3) 09/20/20 05:23 Eos % (Auto) 0.0 % (0.0-4.3) 09/20/20 05:23 Baso % (Auto) 0.1 % (0.0-1.8) 09/20/20 05:23 Lymph # (Auto) 3.0 K/mm3 (1.2-5.4) 09/20/20 05:23 [place] # (Auto) 0.5 K/mm3 (0.0-0.8) 09/20/20 05:23 Eos # (Auto) 0.0 K/mm3 (0.0-0.4) 09/20/20 05:23 Baso # (Auto) 0.0 K/mm3 (0.0-0.1) 09/20/20 05:23 Add Manual Diff Complete 09/21/20 10:30 Total Counted 100 09/21/20 10:30 Seg Neutrophils % [employer] 09/21/20 10:30 Seg Neuts % (Manual) 96.0 % (40.0-70.0) H 09/21/20 10:30 Lymphocytes % (Manual) 2.0 % (13.4-35.0) L 09/21/20 10:30 Monocytes % (Manual) 1.0 % (0.0-7.3) 09/21/20 10:30 Basophils % (Manual) 1.0 % (0.0-1.8) 09/21/20 10:30 Nucleated RBC % Not Reportable 09/21/20 10:30 Seg Neutrophils # 5.8 K/mm3 (1.8-7.7) 09/20/20 05:23 Seg Neutrophils # Man 12.4 K/mm3 (1.8-7.7) H 09/21/20 10:30 Band Neutrophils # 0.0 K/mm3 09/21/20 10:30 Lymphocytes # (Manual) 0.3 K/mm3 (1.2-5.4) L 09/21/20 10:30 Abs React Lymphs (Man) 0.0 K/mm3 09/21/20 10:30 Monocytes # (Manual) 0.1 K/mm3 (0.0-0.8) 09/21/20 10:30 Eosinophils # (Manual) 0.0 K/mm3 (0.0-0.4) 09/21/20 10:30 Basophils # (Manual) 0.1 K/mm3 (0.0-0.1) 09/21/20 10:30 Metamyelocytes # 0.0 K/mm3 09/21/20 10:30 Myelocytes # 0.0 K/mm3 09/21/20 10:30 Promyelocytes # 0.0 K/mm3 09/21/20 10:30 Blast Cells # 0.0 K/mm3 09/21/20 10:30 WBC Morphology Not Reportable 09/21/20 10:30 Hypersegmented Neuts Not Reportable 09/21/20 10:30 Hyposegmented Neuts Not Reportable 09/21/20 10:30 Hypogranular Neuts Not Reportable 09/21/20 10:30 Smudge Cells Not Reportable 09/21/20 10:30 Toxic Granulation Not Reportable 09/21/20 10:30 Toxic Vacuolation Not Reportable 09/21/20 10:30 Dohle Bodies Not Reportable 09/21/20 10:30 Pelger-Huet Anomaly Not Reportable 09/21/20 10:30 Mary Rods Not Reportable 09/21/20 10:30 Platelet Estimate Consistent w auto 09/21/20 10:30 Clumped Platelets Not Reportable 09/21/20 10:30 Plt Clumps, EDTA Not Reportable 09/21/20 10:30 Large Platelets Not Reportable 09/21/20 10:30 Giant Platelets Not Reportable 09/21/20 10:30 Platelet Satelliting Not Reportable 09/21/20 10:30 Plt Morphology Comment Not Reportable 09/21/20 10:30 RBC Morphology Not Reportable 09/21/20 10:30 Dimorphic RBCs Not Reportable 09/21/20 10:30 Polychromasia Not Reportable 09/21/20 10:30 Hypochromasia 2+ 09/21/20 10:30 Poikilocytosis 1+ 09/21/20 10:30 Anisocytosis 1+ 09/21/20 10:30 Microcytosis 2+ 09/21/20 10:30 Macrocytosis Not Reportable 09/21/20 10:30 Spherocytes Not Reportable 09/21/20 10:30 Pappenheimer Bodies Not Reportable 09/21/20 10:30 Sickle Cells Not Reportable 09/21/20 10:30 Target Cells 1+ 09/21/20 10:30 Tear Drop Cells Rare 09/21/20 10:30 Ovalocytes Not Reportable 09/21/20 10:30 Helmet Cells Not Reportable 09/21/20 10:30 Manzanares-Cowan Bodies Not Reportable 09/21/20 10:30 [place] Rings Not Reportable 09/21/20 10:30 Lidia Cells Not Reportable 09/21/20 10:30 Bite Cells Not Reportable 09/21/20 10:30 Crenated Cell Not Reportable 09/21/20 10:30 Elliptocytes Not Reportable 09/21/20 10:30 Acanthocytes (Spur) Not Reportable 09/21/20 10:30 Rouleaux Not Reportable 09/21/20 10:30 Hemoglobin C Crystals Not Reportable 09/21/20 10:30 Schistocytes Not Reportable 09/21/20 10:30 Malaria parasites Not Reportable 09/21/20 10:30 Mike Bodies Not Reportable 09/21/20 10:30 Hem Pathologist Commnt No 09/21/20 10:30 PT 18.9 Sec. (12.2-14.9) H 09/21/20 10:30 INR 1.60 (0.87-1.13) H 09/21/20 10:30 APTT 38.3 Sec. (24.2-36.6) H 09/19/20 13:20 D-Dimer 933.77 ng/mlDDU (0-234) H 09/19/20 13:20 Sodium 135 mmol/L (137-145) L 09/21/20 10:30 Potassium 2.3 mmol/L (3.6-5.0) L* D 09/21/20 10:30 Chloride 86.9 mmol/L (98-107) L 09/21/20 10:30 Carbon Dioxide 25 mmol/L (22-30) D 09/21/20 10:30 Anion Gap 25 mmol/L 09/21/20 10:30 BUN 80 mg/dL (9-20) H 09/21/20 10:30 Creatinine 15.6 mg/dL (0.8-1.3) H 09/21/20 10:30 Estimated GFR 4 ml/min 09/21/20 10:30 BUN/Creatinine Ratio 5 % 09/21/20 10:30 Glucose 109 mg/dL (75-100) H 09/21/20 10:30 Hemoglobin A1c 4.8 % (4-6) 09/20/20 05:23 Lactic Acid 1.20 mmol/L (0.7-2.0) 09/20/20 05:23 Calcium 5.5 mg/dL (8.4-10.2) L* 09/21/20 10:30 Magnesium 2.10 mg/dL (1.7-2.3) 09/19/20 14:35 Ferritin 2699.0 ng/mL (30.0-300.0) H 09/19/20 13:20 Total Bilirubin 0.30 mg/dL (0.1-1.2) 09/20/20 05:23 AST 29 units/L (5-40) 09/20/20 05:23 ALT 8 units/L (7-56) 09/20/20 05:23 Alkaline Phosphatase 56 units/L (35-129) 09/20/20 05:23 Lactate Dehydrogenase 235 units/L (91-180) H 09/19/20 14:35 Total Creatine Kinase 114 units/L (55-170) 09/19/20 14:35 Troponin T 0.014 ng/mL (0.00-0.029) 09/19/20 14:35 C-Reactive Protein 7.80 mg/dL (0.00-1.30) H 09/19/20 14:35 Total Protein 6.4 g/dL (6.3-8.2) 09/20/20 05:23 Albumin 3.4 g/dL (3.9-5) L 09/20/20 05:23 Albumin/Globulin Ratio 1.1 % 09/20/20 05:23 Procalcitonin 4.84 ng/mL (<0.15) 09/19/20 13:20 Coronavirus (PCR) Positive (Negative) A 09/20/20 Unknown Hepatitis A IgM Ab Non-reactive (NonReactive) 09/20/20 15:24 Hep Bs Antigen Non-reactive (Negative) 09/20/20 15:24 Hep B Core IgM Ab Non-reactive (NonReactive) 09/20/20 15:24 Hepatitis C Antibody Non-reactive (NonReactive) 09/20/20 15:24 Microbiology: Microbiology 09/19/20 13:20 Peripheral/Venous Blood Culture - Preliminary NO GROWTH AFTER 48 HOURS 09/19/20 13:20 Peripheral/Venous Blood Culture - Preliminary NO GROWTH AFTER 48 HOURS [place]/IV: IV Catheter Type [Left INT / Saline Lock External Jugular] Active Medications - Current Medications Current Medications: Generic Name Dose Route Start Last Admin Trade Name Freq PRN Reason Stop Dose Admin Acetaminophen 650 mg 09/20/20 02:33 Acetaminophen 325 Mg Tab PO Q4H PRN Pain MILD(1-3)/Fever >100.5/TUBBS Allopurinol 100 mg 09/20/20 10:00 09/21/20 15:22 Allopurinol 100 Mg Tab PO 100 mg QDAY ALONSO Administration Calcium Acetate 2,001 mg 09/20/20 08:00 09/21/20 15:11 Calcium Acetate 667 Mg Cap PO Not Given TIDWM ALONSO Colchicine 0.6 mg 09/20/20 10:00 09/20/20 11:38 Colchicine 0.6 Mg Cap PO 0.6 mg QOD ALONSO Administration Colesevelam HCl 625 mg 09/20/20 08:00 09/21/20 08:47 Colesevelam 625 Mg Tab PO 625 mg BIDDIAB ALONSO Administration Fludrocortisone Acetate 0.1 mg 09/20/20 10:00 09/21/20 15:30 Fludrocortisone 0.1 Mg Tab PO 0.1 mg QDAY ALONSO Administration Hydromorphone HCl 0.25 mg 09/20/20 02:33 Hydromorphone 1 Mg/1 Ml Inj IV Q3H PRN Pain, Moderate (4-6) Sodium Chloride 100 mls @ 999 mls/hr 09/21/20 07:19 Nacl 0.9% IV DOUG PRN Hypotension Ceftriaxone Sodium 2 gm in 100 mls @ 200 mls/hr 09/21/20 13:00 09/21/20 15:21 Rocephin/Ns 2 Gm/100 Ml IV 09/24/20 10:29 200 mls/hr Q24HR ALONSO Administration Lanthanum Carbonate 1,000 mg 09/20/20 08:00 09/21/20 12:21 Lanthanum Carbonate 500 Mg Tab PO Not Given TIDWM [facility] Levetiracetam 500 mg 09/20/20 03:00 09/21/20 15:23 Levetiracetam 500 Mg Tab PO 500 mg BID ALONSO Administration Metoclopramide HCl 2.5 mg 09/20/20 02:51 09/21/20 15:35 Metoclopramide 10 Mg/2 Ml Inj IV 2.5 mg Q6H PRN Administration Nausea And Vomiting Midodrine 10 mg 09/20/20 08:00 09/21/20 15:12 Midodrine 5 Mg Tab PO Not Given TID@0800,1200,1600 [facility] Ondansetron HCl 4 mg 09/20/20 02:33 09/21/20 08:54 Ondansetron 4 Mg/2 Ml Inj IV 4 mg Q3H PRN Administration Nausea And Vomiting Oxycodone/Acetaminophen 1 tab 09/20/20 03:00 09/21/20 15:10 Oxycodone /Acetaminophen 5-325mg Tab PO Not Given Q4HR [facility] Pantoprazole Sodium 20 mg 09/20/20 10:00 09/21/20 15:32 Pantoprazole 20 Mg Tab PO 20 mg QDAY ALONSO Administration Potassium Chloride 20 meq 09/20/20 10:00 09/21/20 15:31 Potassium Chloride Er 20 Meq Tab PO 20 meq DAILY ALONSO Administration Potassium Chloride 40 meq 09/21/20 13:00 09/21/20 15:34 Potassium Chloride 20 Meq Packet PO 09/21/20 17:01 40 meq Q4H ALONSO Administration Potassium Chloride 40 meq 09/21/20 16:00 Potassium Chloride 20 Meq Packet FEEDTUBE 09/21/20 20:01 Q4H [facility] Promethazine HCl 25 mg 09/20/20 02:30 Promethazine 25 Mg Tab PO TID PRN Nausea Sodium Chloride 10 ml 09/20/20 10:00 09/21/20 15:33 Sodium Chloride 0.9% 10 Ml Flush Syringe IV 10 ml BID ALONSO Administration Sodium Chloride 10 ml 09/20/20 02:33 Sodium Chloride 0.9% 10 Ml Flush Syringe IV PRN PRN LINE FLUSH Warfarin Sodium 4 mg 09/21/20 17:00 Warfarin 2 Mg Tab PO [id number] [facility] Nutrition/Malnutrition Assess - Dietary Evaluation Nutrition/Malnutrition Findings: Nutrition Notes Start: 09/20/20 11:48 Freq: Status: Active Protocol: Document 09/21/20 13:23 AB (Rec: 09/21/20 14:18 AB [id number]) Co-Sign 09/21/20 13:23 NHALL Nutrition Notes Need for Assessment generated from: MD Order Initial or Follow up Reassessment Current Diagnosis CKD (stage V CKD) Other Pertinent Diagnosis SIRS, seizure disorder, COVID PUI Current Diet Renal Labs/Tests K 3.3 Na 134 BUN 75 Cr 17.1 BG 111 Pertinent Medications Reviewed Height 5 ft 5 in Weight 51.5 kg [place] Body Weight (kg) 61.81 BMI 18.8 Subjective/Other Information MD consult for supplement order and coumadin diet education. Pt on HD m/w/f. Per RN, pt has not been consuming much PO. Per chart, pt has a PEG tube and does bolus feedings during night. Pt states that he only puts fluids through the PEG tube, no formula. Pt states that it is d/t having chronic diarrhea and prevents dehydration. Percent of energy/protein needs met: 32%/31% Burn Absent Trauma Absent Current % PO Poor (25-49%) Minimum of two criteria No #1 Nutrition Diagnosis Inadequate oral intake Etiology Chronic illness As Evidenced by Signs and Symptoms loss of appetite Is patient on ventilator? No Is Patient Ambulatory and/or Out of Bed No REE-([facility]-confined to bed) [phone] Calculation Used for Recommendations [facility] Additional Notes Protein: >62 g (>1.2 g/kg) Fluid: 1 ml/kcal or per Nutrition Intervention Change Diet Order: Continue current diet order Add Supplement/Snack (indicate name/kcal Nepro BID /protein ) Provides kCal: 850 Provides Protein (gm) 38 Goal #1 Meet at least 80% of energy and protein needs via PO and ONS. Anticipated Discharge Needs: Renal diet Follow-Up By: 09/22/20 Additional Comments F/U for DNI education
[2020-09-21] MEDS ORDERED: WARFARIN 2 MG TAB PO SCH (17:00)
[2020-09-21] MEDS: POTASSIUM CHLORIDE 20 MEQ PACKET FEEDTUBE SCH ×2 (17:48→21:51)
[2020-09-21] MEDS ORDERED: CALCIUM GLUCONATE 1,000 MG in SODIUM CHLORIDE 0.9% 100 ML IV ONE (18:04)
--- NOTE | 2020-09-21 18:45 | Vascular Lab Report ---
DUPLEX DOPPLER LOWER EXTREMITY VEINS, BILATERAL INDICATION / CLINICAL INFORMATION: r/o dvt. TECHNIQUE: Duplex doppler imaging was performed through the veins of both lower extremities using venous tao yary and other maneuvers. COMPARISON: None available. FINDINGS: RIGHT COMMON FEMORAL VEIN: Negative. RIGHT FEMORAL VEIN: Negative. RIGHT POPLITEAL VEIN: Negative. RIGHT CALF VEINS: Negative. LEFT COMMON FEMORAL VEIN: Negative. LEFT FEMORAL VEIN: Negative. LEFT POPLITEAL VEIN: Negative. LEFT CALF VEINS: Negative. ADDITIONAL FINDINGS: None. IMPRESSION: 1. No sonographic evidence for DVT in either lower extremity. Signer Name: Matt Norris MD Signed: 09/21/2020 6:41 PM Workstation Name: [id number]
[2020-09-22 05:28] LABS: INR 1.8 (0.87-1.13)
[2020-09-22 05:39] LABS: Calcium 7.4 mg/dL (8.4-10.2)
[2020-09-22] MEDS: oxyCODONE /ACETAMINOPHEN 5-325MG TAB PO SCH ×3 (05:44→10:21)
[2020-09-22 06:30] LABS: C-Reactive Protein 10.9 mg/dL (0.00-1.30)
[2020-09-22] MEDS: POTASSIUM CHLORIDE ER 20 MEQ TAB PO SCH (10:19)
[2020-09-22] MEDS: MIDODRINE 5 MG TAB PO SCH ×2 (10:19→12:39)
[2020-09-22] MEDS: allopurinoL 100 MG TAB PO SCH (10:19)
[2020-09-22] MEDS: COLESEVELAM 625 MG TAB PO SCH (10:19)
[2020-09-22] MEDS: FLUDROCORTISONE 0.1 MG TAB PO SCH (10:19)
[2020-09-22] MEDS: levETIRAcetam 500 MG TAB PO SCH (10:19)
[2020-09-22] MEDS: LANTHANUM CARBONATE 500 MG TAB PO SCH ×2 (10:19→12:39)
[2020-09-22] MEDS: PANTOPRAZOLE 20 MG TAB PO SCH (10:19)
[2020-09-22] MEDS: cefTRIAXone/NS 2 GM/100 ML 2 GM/100 ML BAG IV SCH (10:20)
[2020-09-22] MEDS: CALCIUM ACETATE 667 MG CAP PO SCH ×2 (10:22→12:39)
[2020-09-22] MEDS: COLCHICINE 0.6 MG CAP PO SCH (12:40)
--- NOTE | 2020-09-22 15:12 | Discharge Summary ---
Providers - Providers Date of Admission: 09/20/20 22:36 Attending physician: CHRYSTAL CRUZ 09/19/20 12:15 Consult to Physician [CONS] Urgent Comment: Consulting Provider: MARIA LUISA PABLO Physician Instructions: Reason For Exam: esrd known to you 09/19/20 12:16 Consult to Physician [CONS] Urgent Comment: Consulting Provider: DALJIT ABERNATHY Physician Instructions: Reason For Exam: weakness, hypotension, suspected covid 09/20/20 02:58 Consult to Physician [CONS] Routine Comment: Consulting Provider: JULIÁN DE LA TORRE Physician Instructions: Reason For Exam: Partially clotted AV axis 09/21/20 03:29 Consult to Dietitian/Nutrition [CONS] Routine Physician Instructions: Reason For Exam: Reason for Consult: Diet education Primary care physician: HEAT TRANSFER TECHNICIAN Hospitalization Condition: Stable Hospital course: This is a 35-year-old patient male end-stage renal disease on HD, hypotension on midodrine, chronic diarrhea, s/p PEG tube for which he self administers normal saline (unknown amount for persistent hypotension), multiple right upper extremity graft revisions with lifelong Coumadin (reported by the patient) and GERD who presented to the emergency department on 09/19 for shortness of breath, weakness and diarrhea. Patient reported subjective for fever. Upon presentation to the emergency department he had tachycardia, hypotension (which is chronic for the patient), leukocytosis, hyponatremia, hypokalemia, hypochloremia alkalosis, elevated BUN/creatinine, and a CT abdomen/pelvis without contrast showed subtle scattered lung opacities in the lung bases concerning for bilateral infection with slightly prominent with moderate fluid and gas without evidence of bowel obstruction and chronic renal parenchymal disease with multiple renal cyst seen. Patient was admitted to the hospital service with consults to infectious disease, vascular surgery and nephrology as a COVID-19 PUI. On 09/20 patient's COVID-19 PCR resulted as positive. He also had a upper extremity Doppler ultrasound to assess his AV graft which showed possible thrombosis but his AV graft is still patent and has been used for dialysis. Patient will need to follow-up with his primary care physician and vascular surgery outpatient. Patient will. . Be discharged to resume his home health services. Patient will be discharged with antibiotic therapy for 2 days. Assessment and Plan - Patient Problems (1) Sepsis Current Visit: No Status: Acute Plan to address problem: -Presented with tachycardia, leukocytosis, subtle patchy groundglass densities on CT -09/20 CT abdomen/pelvis shows subtle patchy groundglass densities in the lower lung zones concerning for atypical infection -09/20 COVID-19 PCR positive -09/19 blood cultures x2 pending -Infectious disease consult, appreciate recommendations -Antibiotic therapy -Patient will be discharged with antibiotic therapy for 2 doses (2) Pneumonia due to COVID-19 virus Current Visit: Yes Status: Acute Plan to address problem: -09/20 CT abdomen/pelvis shows subtle patchy groundglass densities in the lower lung zones concerning for atypical infection -09/20 COVID-19 PCR positive -Continue self-isolation post discharge -Infectious disease consulted, appreciate recommendations -Antibiotic therapy, patient will be discharged with Levaquin 500 mg every 48 hours for 2 doses -Trend COVID-19 inflammatory markers for risk stratification -OOB 3 times daily as needed -Pulmonary hygiene -Patient will not be a candidate for remdesivir therapy given ESRD -Patient is on warfarin (3) Elevated d-dimer Current Visit: Yes Status: Acute Plan to address problem: -Patient presented with a D-dimer of 933 -09/20 bilateral lower extremity Doppler ultrasound negative for DVT/SVT -Patient is on long-term warfarin (4) 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 Elevated peak systolic blood velocity along the arterial side of the graft near the proximal anastomosis which may be seen with stenosis -Acute inpatient patient does not need acute intervention at this time per vascular surgery -Patient need to follow-up with vascular surgery outpatient (5) Hypochloremic alkalosis Current Visit: Yes Status: Acute Plan to address problem: -Presented with chloride 73, CO2 36, 09/20 chloride 77, CO2 33, -09/21: Chloride 86.9, CO2 25, 09/22 Cl 91.6/ CO2 26 -Continue outpatient hemodialysis schedule (6) Hypokalemia Current Visit: Yes Status: Acute Plan to address problem: -Presented with a potassium of 2.7, 09/20 K 2.5, 09/21 K 2.3, 09/22 K 3.6 (7) Hypocalcemia Current Visit: No Status: Acute Plan to address problem: -Presented with a calcium of 7.6, 09/20 calcium 6.4, 09/21 calcium 5.5, 09/22 Ca 7.4 -s/p IV Calcium gluconate -HD per nephrology (8) Leukocytosis Current Visit: No Status: Acute Qualifiers: Leukocytosis type: unspecified Qualified Code(s): D72.829 - Elevated white blood cell count, unspecified Plan to address problem: -Presented with WBC of 11.5, 09/21 WBC 12.9 -CT abdomen/pelvis shows subtle patchy groundglass densities in the lower lung zones concerning for atypical infection -09/20 COVID-19 PCR positive -Discharged with home antibiotic therapy (9) ESRD on dialysis Current Visit: Yes Status: Chronic Plan to address problem: -Nephrology consulted -Resume home HD schedule (10) Seizure disorder Current Visit: No Status: Chronic Plan to address problem: -Continue home antiepileptic (11) GERD (gastroesophageal reflux disease) Current Visit: Yes Status: Chronic Plan to address problem: -Continue home PPI (12) Chronic diarrhea Current Visit: No Status: Chronic Plan to address problem: -Supportive care -Continue home medications Disposition: DC/TX-06 HOME UNDER HOME HLTH Time spent for discharge: 35 Core Measure Documentation - Palliative Care Palliative Care/ Comfort Measures: Not Applicable - Core Measures Any of the following diagnoses?: history only Exam - Constitutional Vitals: Temp Pulse Resp BP Pulse Ox 97.7 F 70 16 72/33 99 09/22/20 12:09 09/22/20 12:09 09/22/20 12:09 09/22/20 12:09/22/20 12:09 General appearance: Present: no acute distress - EENT ENT: hearing intact, poor dentition - Neck Neck: Present: normal ROM - Respiratory Respiratory effort: normal Respiratory: bilateral: CTA, diminished - Cardiovascular Rhythm: regular Heart Sounds: Present: S1 & S2. Absent: systolic murmur, diastolic murmur - Extremities Extremities: no ischemia, pulses intact, pulses symmetrical, No edema, normal temperature, normal color, Full ROM Peripheral Pulses: within normal limits - Abdominal General gastrointestinal: Present: soft, non-tender, non-distended, normal bowel sounds - Integumentary Integumentary: Present: warm, dry - Musculoskeletal Musculoskeletal: strength equal bilaterally - Psychiatric Psychiatric: cooperative - Neurologic Neurologic: CNII-XII intact, no focal deficits, moves all extremities - Allied Health Allied health notes reviewed: nursing Plan Activity: no restrictions Diet: renal Special Instructions: record daily weights, record daily BP diary, home health RN Additional Instructions: Present to nearest emergency department or contact your primary care physician if you experience worsening symptoms. Follow the COVID- 19 guidelines set and contained in the booklet the RN will provide you. You will be discharged with Levaquin 500 mg every 48 hours for 2 doses. Resume your home health agency and outpatient hemodialysis. You will need to follow-up with the primary care physician vascular surgery within 1 to 2 weeks of discharge. Follow up with: PRIMARY CAREMD [Primary Care Provider] - 3-5 Days Forms: Warfarin Discharge Instruction Prescriptions: levoFLOXacin [Levaquin TAB] 500 mg PO Q48HR #2 tablet
--- NOTE | 2020-09-22 16:07 | Progress Note ---
Assessment and Plan Cultures: Blood culture pending A/P: 35 yo M PMhx ESRD on HD presents with COVID, possible thrombosed access #COVID-19 pneumonia: Not a candidate for Remdesivir due to ESRD. Appears to be saturating well #ESRD on HD: renally dose medications #Gastroenteritis: unclear etiology. Receiving ceftriaxone. Recs: -If patient becomes hypoxic please start dexamethasone 6mg q24h for 10 days -Okay to discharge with levofloxacin 500 mg every 48 hours to complete 2 further doses. -Anticoagulation per hospital protocol -Proning as able. Thank you for the consult, we will continue to follow. Gianni Becerra MD [facility] ([facility]) O: [phone] F: [phone] Subjective Date of service: 09/22/20 Principal diagnosis: COVID Interval history: Febrile to 102.7 yesterday white count 12.9. Patient wanting to leave AMA. Objective - Exam Narrative Exam: Physical exam deferred due to PPE conservation strategy. Please refer to primary team's note. - Constitutional Vitals: Vital Signs Temp Pulse Resp BP Pulse Ox 97.7 F 70 16 72/33 99 09/22/20 12:09 09/22/20 12:09 09/22/20 12:09 09/22/20 12:09/22/20 12:09 Temperature -Last 24 Hours Temperature 97.7 F Temperature 100.2 F Temperature 102.7 F Temperature 97.5 F - Labs CBC & Chem 7: 09/21/20 10:30 09/22/20 04:22 Labs: Abnormal lab results 09/22/20 09/22/20 09/22/20 Range/Units 04:22 04:22 04:22 PT 20.8 H (12.2-14.9) Sec. INR 1.80 H (0.87-1.13) D-Dimer 603.43 H (0-234) ng/mlDDU Chloride 91.6 L (98-107) mmol/L BUN 43 H (9-20) mg/dL Creatinine 11.8 H (0.8-1.3) mg/dL Calcium 7.4 L D (8.4-10.2) mg/dL Ferritin 1923.0 H (30.0-300.0) ng/mL Lactate Dehydrogenase 318 H (91-180) units/L C-Reactive Protein 10.90 H (0.00-1.30) mg/dL
[2020-09-22 17:23] VITALS: BP 80/29
== END 2020-09-22 18:00 | disposition home health service (06) | DRG 871 ==
LOC: ED 11:22 → UNDOADMOB 14:49 → 3A 14:49 → OBSVTOIN 09-20 04:47 → INTOOBSV 09-20 04:47 → OBSVTOIN 09-20 22:35 → 3A 09-20 22:35 → INTOOBSV 09-20 22:35 → UNDOADMOB 09-20 22:35 → 3A 09-20 22:36 → OBSVTOIN 09-20 22:36 → 3A 09-20 23:35
PROVIDERS: ADMIT Internal Medicine; ATTEND Hospitalist
PROC: 5A1D70Z Performance of Urinary Filtration, Intermittent, Less than 6 Hours Per Day (ICD-10-PCS; principal; 2020-09-21)
DX: A41.89 Other specified sepsis (principal); U07.1 COVID-19; N18.6 End stage renal disease; J12.82 Pneumonia due to coronavirus disease 2019; T82.868A Thrombosis due to vascular prosthetic devices, implants and grafts, initial encounter; N25.81 Secondary hyperparathyroidism of renal origin; E87.1 Hypo-osmolality and hyponatremia; D64.9 Anemia, unspecified; K21.9 Gastro-esophageal reflux disease without esophagitis; K52.9 Noninfective gastroenteritis and colitis, unspecified; I95.9 Hypotension, unspecified; E87.8 Other disorders of electrolyte and fluid balance, not elsewhere classified; E83.51 Hypocalcemia; E87.6 Hypokalemia; E86.0 Dehydration; G40.909 Epilepsy, unspecified, not intractable, without status epilepticus; Z79.899 Other long term (current) drug therapy; Z99.2 Dependence on renal dialysis; Z91.041 Radiographic dye allergy status; Y92.89 Other specified places as the place of occurrence of the external cause
CPT/HCPCS: 36415; 71045; 74176; 80048; 80053; 80074; 82140; 82550; 82728; 83036; 83615; 83735; 84100; 84132; 84145; 84484; 85007; 85025; 85379; 85610; 85730; 86140; 87040; 93005; 93970; 93990; G0378; J0456; J0610; J0696; J1720; J2405; J2765; J3010; J3370; J3480; J7040; J7050; J7120; U0003

== ENCOUNTER 2021-05-15 06:00 | Inpatient (IN) | payer MEDICARE ==
--- NOTE | 2021-05-15 06:37 | Emergency Department Report ---
HPI - General Chief Complaint: Nausea/Vomiting/Diarrhea Time Seen by Provider: 05/15/21 06:22 - HPI HPI: Room 18 The patient is a 35-year-old male present with a chief complaint of fatigue and cold fingertips. The patient states yesterday he felt generalized fatigue. Patient states he also felt like his fingertips were getting cold. Today the patient went to dialysis and again felt fatigued. The patient has a history of chronic hypotension and is on midodrine at home. The patient was reportedly found to be hypotensive with a systolic BP in the 50s and was subsequently sent to the ED for evaluation. When asked how he is feeling down the patient states he feels okay just sometimes his fingertips feel cold. Patient denies pain of any type, fever, cough. Patient states he was last dialyzed 05/12/2021 ED Past Medical Hx - Past Medical History Previous Medical History?: Yes Hx Renal Disease: Yes Hx Seizures: Yes Additional medical history: chronic diarrhea - Surgical History Past Surgical History?: Yes Additional Surgical History: AV fistula right arm - Family History Family history: no significant - Social History Smoking Status: Never Smoker Substance Use Type: None (Denies illicit drug use) - Medications Home Medications: Home Medications Medication Instructions Recorded Confirmed Last Taken Type Colesevelam [Welchol] 625 mg PO BID 10/11/15 04/24/16 04/23/16 History 625 mg Lanthanum Carbonate [Fosrenol] 1,000 mg PO TID 10/11/15 04/24/16 04/23/16 History 1000 mg Midodrine HCl 10 mg PO TID 10/11/15 04/24/16 04/24/16 04:30 History 10 mg Potassium Chloride [Klor-Con 10] 20 meq PO DAILY 10/11/15 04/24/16 04/23/16 History 20 meq Promethazine [Phenergan] 25 mg PO TID PRN 10/11/15 04/16/16 02/24/16 History 25 mg Warfarin Sodium [Coumadin] 4 mg PO 3XW 10/11/15 04/24/16 04/23/16 History 4 mg allopurinoL [Zyloprim] 100 mg PO QDAY 10/11/15 04/24/16 04/23/16 History 100 mg Colchicine [Colcrys] 0.6 mg PO QDAY 04/16/16 04/24/16 Unknown History Acetaminophen [Acetaminophen TAB] 650 mg PO Q4H PRN tablet 09/22/20 Unknown Rx levoFLOXacin [Levaquin TAB] 500 mg PO Q48HR #2 tablet 09/22/20 Unknown Rx Calcium Acetate [Phoslo] 2,001 mg PO TIDWM capsule 10/03/20 Unknown Rx Fludrocortisone [Florinef] 0.1 mg PO BID tablet 10/03/20 Unknown Rx Lanthanum Carbonate [Fosrenol] 1,000 mg PO TIDWM tab.chew 10/03/20 Unknown Rx Midodrine [Proamatine] 10 mg PO TID tablet 10/03/20 Unknown Rx Pantoprazole [Protonix TAB] 20 mg PO QDAY tablet. 10/03/20 Unknown Rx Warfarin [Coumadin] 4 mg PO MoWeFr@1700 #30 tablet 10/03/20 Unknown Rx levETIRAcetam [Keppra TAB] 500 mg PO BID tablet 10/03/20 Unknown Rx oxyCODONE /ACETAMINOPHEN [Percocet 1 tab PO Q6H PRN #30 tablet 10/03/20 Unknown Rx 5/325 mg] ED Review of Systems ROS: Stated complaint: LOW BLOOD PRESSURE Other details as noted in HPI Constitutional: malaise. denies: fever Eyes: denies: eye pain ENT: denies: throat pain Respiratory: denies: cough Cardiovascular: denies: chest pain Endocrine: no symptoms reported Gastrointestinal: diarrhea (Chronic). denies: abdominal pain, nausea, vomiting Genitourinary: denies: testicular pain Musculoskeletal: denies: back pain Neurological: denies: headache Physical Exam - Physical Exam Vital Signs: Vital Signs 05/15/21 05/15/21 05/15/21 06:18 06:19 06:20 Temperature 97.7 F Pulse Rate 100 H 95 H Respiratory 11 L 19 Rate Blood Pressure 68/36 [Left] O2 Sat by Pulse 100 100 Oximetry Physical Exam: GENERAL: The patient is well-developed well-nourished male lying on stretcher not appearing to be in acute distress. [] HEENT: Normocephalic. Atraumatic. Patient has moist mucous membranes. NECK: Supple. Trachea midline CHEST/LUNGS: Clear to auscultation. There is no respiratory distress noted. HEART/CARDIOVASCULAR: Regular. There is no tachycardia. There is no gallop rub or murmur. ABDOMEN: Abdomen is soft, nontender. Patient has normal bowel sounds. There is no abdominal distention. SKIN: There is no rash. There is no edema. There is no diaphoresis. NEURO: The patient is awake, alert, and oriented. The patient is cooperative. The patient has no focal neurologic deficits. The patient has normal speech. GCS 15 MUSCULOSKELETAL: There is no evidence of acute injury. ED Course Vital Signs 05/15/21 05/15/21 05/15/21 06:18 06:19 06:20 Temperature 97.7 F Pulse Rate 100 H 95 H Respiratory 11 L 19 Rate Blood Pressure 68/36 [Left] O2 Sat by Pulse 100 100 Oximetry - Consultations Consultation #1: 05/15/21 09:59 Nephrology paged 05/15/21 10:[address] Tamayo- recommends patient be admitted to the hospital for further evaluation. States blood pressure is not normally that low ED Medical Decision Making - Lab Data Result diagrams: 05/15/21 08:12 05/15/21 08:12 Laboratory Tests 05/15/21 05/15/21 05/15/21 07:56 08:12 08:12 WBC 17.0 H RBC 4.30 Hgb 8.8 L Hct 26.6 L MCV 62 L MCH 20 L MCHC 33 RDW 16.6 H Plt Count 248 PT INR APTT Sodium 136 L Potassium 3.6 Chloride 72.0 L Carbon Dioxide 35 H Anion Gap 33 BUN 66 H Creatinine 12.2 H Estimated GFR 5 BUN/Creatinine Ratio 5 Glucose 87 Calcium 8.6 Phosphorus 11.20 H Magnesium 2.00 Total Bilirubin 0.70 AST 16 ALT < 5 L Alkaline Phosphatase 72 Total Creatine Kinase 83 CK-MB (CK-2) < 1.0 CK-MB (CK-2) Rel Index 1.2 Troponin T 0.010 Total Protein 7.9 Albumin 4.7 Albumin/Globulin Ratio 1.5 Lipase 35 TSH Free T4 05/15/21 05/15/21 08:12 08:12 WBC RBC Hgb Hct MCV MCH MCHC RDW Plt Count PT 13.5 INR 0.97 APTT 33.9 Sodium Potassium Chloride Carbon Dioxide Anion Gap BUN Creatinine Estimated GFR BUN/Creatinine Ratio Glucose Calcium Phosphorus Magnesium Total Bilirubin AST ALT Alkaline Phosphatase Total Creatine Kinase CK-MB (CK-2) CK-MB (CK-2) Rel Index Troponin T Total Protein Albumin Albumin/Globulin Ratio Lipase TSH 1.630 Free T4 1.43 - EKG Data -: EKG Interpreted by Me EKG shows normal: sinus rhythm Rate: normal - EKG Data When compared to previous EKG there are: previous EKG unavailable Interpretation: other (No ischemic changes seen) - Radiology Data Radiology results: report reviewed (Chest x-ray), image reviewed (Chest x-ray) interpreted by me: Chest x-ray-no focal infiltrates, no pneumothorax. [facility] [address] [place] [address] XRay Report Signed Patient: NITZA LINDSEY MR#: [id number] : 1985 Acct:[id number] Age/Sex: 35 / M ADM Date: 05/15/21 Loc: ED Attending Dr: Ordering Physician: MISSY TREVINO MD Date of Service: 05/15/21 Procedure(s): XR chest 1V ap Accession Number(s): [id number] cc: MISSY TREVINO MD Fluoro Time In Minutes: XR chest 1V ap INDICATION / CLINICAL INFORMATION: Leukocytosis COMPARISON: 10/01/2020 FINDINGS: SUPPORT DEVICES: None. HEART / MEDIASTINUM: No significant abnormality. LUNGS / PLEURA: Lungs are not significantly changed. Costophrenic sulci are sharp. No pneumothorax. ADDITIONAL FINDINGS: Vascular stent seen in the left axilla and upper arm. IMPRESSION: 1. No acute findings. Signer Name: Abhi Pfeiffer MD Signed: 05/15/2021 9:18 AM Workstation Name: [id number] Transcribed By: CS Dictated By: Abhi Pfeiffer MD Electronically Authenticated By: Abhi Pfeiffer MD Signed Date/Time: 05/15/21917 DD/ 6 TD/TT: Print Cancel - Differential Diagnosis Electrolyte abnormality, symptomatic anemia, hypothyroidism, Critical care attestation.: If time is entered above; I have spent that time in minutes in the direct care of this critically ill patient, excluding procedure time. ED Disposition Clinical Impression: Hypotension, Fatigue, Leukocytosis, Chronic hypotension Disposition: ADMITTED INPATIENT Is pt being admited?: Yes Condition: Stable Time of Disposition: 10:35 (Hospitalist called (Dr Gambino))
[2021-05-15] MEDS ORDERED: SODIUM CHLORIDE 0.9% 500 ML 500 ML IV ONE (06:41)
[2021-05-15 08:37] LABS: Hematocrit 26.6 % (35.5-45.6); Hemoglobin 8.8 gm/dl (11.8-15.2); Mean Corpuscular HGB Conc 33 % (32-34); Platelet Count 248 K/mm3 (140-440); Red Cell Distribution Width 16.6 % (13.2-15.2)
[2021-05-15 08:43] LABS: Mean Corpuscular Volume 62 fl (84-94)
[2021-05-15 08:49] LABS: Albumin 4.7 g/dL (3.9-5); Blood Urea Nitrogen 66 mg/dL (9-20); Calcium 8.6 mg/dL (8.4-10.2); Hemolysis Index 35
[2021-05-15 08:50] LABS: INR 0.97 (0.87-1.13)
[2021-05-15 08:51] LABS: Partial Thromboplastin Time 33.9 Sec. (24.2-36.6)
[2021-05-15 08:55] LABS: Alanine Aminotransferase < 5 units/L (7-56); BUN/Creatinine Ratio 5
[2021-05-15 08:56] LABS: Creatine Kinase MB < 1.0 ng/mL (0.0-4.0); Free T4 (Free Thyroxine) 1.43 ng/dL (0.76-1.46)
--- NOTE | 2021-05-15 09:22 | XRay Report ---
XR chest 1V ap INDICATION / CLINICAL INFORMATION: Leukocytosis COMPARISON: 10/01/2020 FINDINGS: SUPPORT DEVICES: None. HEART / MEDIASTINUM: No significant abnormality. LUNGS / PLEURA: Lungs are not significantly changed. Costophrenic sulci are sharp. No pneumothorax. ADDITIONAL FINDINGS: Vascular stent seen in the left axilla and upper arm. IMPRESSION: 1. No acute findings. Signer Name: Abhi Pfeiffer MD Signed: 05/15/2021 9:18 AM Workstation Name: [id number]
--- NOTE | 2021-05-15 10:50 | Progress Note ---
Assessment and Plan Assessment and plan: 1. SIRS 2. ESRD on hemodialysis 3. History of seizure disorder 4. History of Gout Hospitalist Physical - Constitutional Vitals: Temp Pulse Resp BP Pulse Ox 97.7 F 87 15 88/22 96 05/15/21 06:19 05/15/21 07:30 05/15/21 07:30 05/15/21 07:30 05/15/21 07:30 HEART Score - HEART Score Troponin: Troponin T 0.010 ng/mL (0.00-0.029) 05/15/21 08:12 Results - Labs CBC & Chem 7: 05/15/21 08:12 05/15/21 08:12 Labs: Laboratory Last Values WBC 17.0 K/mm3 (4.5-11.0) H 05/15/21 08:12 RBC 4.30 M/mm3 (3.65-5.03) 05/15/21 08:12 Hgb 8.8 gm/dl (11.8-15.2) L 05/15/21 08:12 Hct 26.6 % (35.5-45.6) L 05/15/21 08:12 MCV 62 fl (84-94) L 05/15/21 08:12 MCH 20 pg (28-32) L 05/15/21 08:12 MCHC 33 % (32-34) 05/15/21 08:12 RDW 16.6 % (13.2-15.2) H 05/15/21 08:12 Plt Count 248 K/mm3 (140-440) 05/15/21 08:12 PT 13.5 Sec. (12.2-14.9) 05/15/21 08:12 INR 0.97 (0.87-1.13) 05/15/21 08:12 APTT 33.9 Sec. (24.2-36.6) 05/15/21 08:12 Sodium 136 mmol/L (137-145) L 05/15/21 08:12 Potassium 3.6 mmol/L (3.6-5.0) 05/15/21 08:12 Chloride 72.0 mmol/L (98-107) L 05/15/21 08:12 Carbon Dioxide 35 mmol/L (22-30) H 05/15/21 08:12 Anion Gap 33 mmol/L 05/15/21 08:12 BUN 66 mg/dL (9-20) H 05/15/21 08:12 Creatinine 12.2 mg/dL (0.8-1.3) H 05/15/21 08:12 Estimated GFR 5 ml/min 05/15/21 08:12 BUN/Creatinine Ratio 5 % 05/15/21 08:12 Glucose 87 mg/dL (75-100) 05/15/21 08:12 Calcium 8.6 mg/dL (8.4-10.2) 05/15/21 08:12 Phosphorus 11.20 mg/dL (2.5-4.5) H 05/15/21 08:12 Magnesium 2.00 mg/dL (1.7-2.3) 05/15/21 08:12 Total Bilirubin 0.70 mg/dL (0.1-1.2) 05/15/21 08:12 AST 16 units/L (5-40) 05/15/21 08:12 ALT < 5 units/L (7-56) L 05/15/21 08:12 Alkaline Phosphatase 72 units/L (35-129) 05/15/21 08:12 Total Creatine Kinase 83 units/L (55-170) 05/15/21 08:12 CK-MB (CK-2) < 1.0 ng/mL (0.0-4.0) 05/15/21 08:12 CK-MB (CK-2) Rel Index 1.2 (0-4) 05/15/21 08:12 Troponin T 0.010 ng/mL (0.00-0.029) 05/15/21 08:12 Total Protein 7.9 g/dL (6.3-8.2) 05/15/21 08:12 Albumin 4.7 g/dL (3.9-5) 05/15/21 08:12 Albumin/Globulin Ratio 1.5 % 05/15/21 08:12 Lipase 35 units/L (13-60) 05/15/21 07:56 TSH 1.630 mlU/mL (0.270-4.200) 05/15/21 08:12 Free T4 1.43 ng/dL (0.76-1.46) 05/15/21 08:12
[2021-05-15] MEDS ORDERED: SODIUM CHLORIDE 0.9% 1000 ML 1,000 ML IV ONE ×2 (12:26→15:03)
[2021-05-15 13:26] LABS: Anisocytosis 2+; Band Neutrophils # (Manual) 0.5 K/mm3; Hypochromasia 2+; Platelet Estimate Consistent w Auto; Target Cells 2+; Total Cells Counted 100
--- NOTE | 2021-05-15 13:26 | History and Physical Report ---
History of Present Illness Date of admission: 05/15/21 12:34 Chief complaint: Fatigue dizziness History of present illness: HPI: 35-year-old male with past medical history of ESRD on HD, seizure disorder, chronic diarrhea, AV graft embolism, Covid infection September 2020 presenting with chief complaint of fatigue and dizziness. Per patient he had 4 episodes of large-volume watery diarrhea yesterday. His blood pressure dropped to the 60 systolic. He stated that he felt weak, fatigued, dizzy during this time. He denied any fevers, chills, nausea, vomiting. He states he is compliant with all of his medications and that he is compliant with Saturday, Saturday, Saturday dialysis. He has chronic issues with hypotension taking midodrine and Florinef per chart review. Remainder of ROS negative except for stated above. ED Course: Nephrology consulted (Dr. Gomez) by ER physician. 500 cc bolus. PMHx: ESRD on HD, seizure disorder, chronic diarrhea, gout, history of VTE and AV graft on warfarin PSHx: Denies FHx: Reviewed noncontributory SHx: Tobacco use-denies ETOH Use-denies Recreational Drug Use-denies PCP-Dr. Coburn Customer Agent- Dr. Ryan Past History Past Medical History: dialysis, ESRD, seizures Medications and Allergies Allergies Allergy/AdvReac Type Severity Reaction Status Date / Time Iodine and Iodide Containing Allergy Swelling Verified 03/24/17 08:47 Produc povidone-iodine Allergy Swelling Verified 03/24/17 08:47 [From Betadine] soap [From Betadine] Allergy Swelling Verified 03/24/17 08:47 Iodinated Contrast Media AdvReac Swelling Verified 03/24/17 08:47 [Iodinated Contrast Media - IV Dye] IV Contrast AdvReac Swelling Uncoded 03/24/17 08:47 Home Medications Medication Instructions Recorded Confirmed Last Taken Type Colesevelam [Welchol] 625 mg PO BID 10/11/15 04/24/16 04/23/16 History 625 mg Lanthanum Carbonate [Fosrenol] 1,000 mg PO TID 10/11/15 04/24/16 04/23/16 History 1000 mg Midodrine HCl 10 mg PO TID 10/11/15 04/24/16 04/24/16 04:30 History 10 mg Potassium Chloride [Klor-Con 10] 20 meq PO DAILY 10/11/15 04/24/16 04/23/16 History 20 meq Promethazine [Phenergan] 25 mg PO TID PRN 10/11/15 04/16/16 02/24/16 History 25 mg Warfarin Sodium [Coumadin] 4 mg PO 3XW 10/11/15 04/24/16 04/23/16 History 4 mg allopurinoL [Zyloprim] 100 mg PO QDAY 10/11/15 04/24/16 04/23/16 History 100 mg Colchicine [Colcrys] 0.6 mg PO QDAY 04/16/16 04/24/16 Unknown History Acetaminophen [Acetaminophen TAB] 650 mg PO Q4H PRN tablet 09/22/20 Unknown Rx levoFLOXacin [Levaquin TAB] 500 mg PO Q48HR #2 tablet 09/22/20 Unknown Rx Calcium Acetate [Phoslo] 2,001 mg PO TIDWM capsule 10/03/20 Unknown Rx Fludrocortisone [Florinef] 0.1 mg PO BID tablet 10/03/20 Unknown Rx Lanthanum Carbonate [Fosrenol] 1,000 mg PO TIDWM tab.chew 10/03/20 Unknown Rx Midodrine [Proamatine] 10 mg PO TID tablet 10/03/20 Unknown Rx Pantoprazole [Protonix TAB] 20 mg PO QDAY tablet.dr 10/03/20 Unknown Rx Warfarin [Coumadin] 4 mg PO MoWeFr@1700 #30 tablet 10/03/20 Unknown Rx levETIRAcetam [Keppra TAB] 500 mg PO BID tablet 10/03/20 Unknown Rx oxyCODONE /ACETAMINOPHEN [Percocet 1 tab PO Q6H PRN #30 tablet 10/03/20 Unknown Rx 5/325 mg] Active Meds: Active Medications Sodium Chloride (Nacl 0.9% 1000 Ml) 1,000 mls @ 999 mls/hr IV ONCE ONE Stop: 05/15/21 13:26 Last Admin: 05/15/21 12:39 Dose: 999 mls/hr Documented by: Review of Systems Constitutional: fatigue, weakness, poor appetite Gastrointestinal: diarrhea Exam - Physical Exam Narrative exam: Physical Exam: Constitutional: Alert, cooperative. No acute distress. Thin ill appearing gentleman. Head, Ears, Nose: Normocephalic, atraumatic. External ears, nose normal Eyes: clouded left cornea, slight left lateral deviation noted in this eye. No icterus. Neck: Supple, no meningeal signs Oral: dentition fair, no thrush Cardiovascular: S1, S2 normal. Respiratory: Good air entry, clear to auscultation bilaterally GI: Soft, non-tender; bowel sounds normal. No peritoneal signs. Extremity: Right arm fistula Musculoskeletal: No pedal edema, no cyanosis. Skin: rash on scalp, see nursing assessment for full skin exam Hem/Lymphatic: No palpable cervical or supraclavicular nodes. No lymphangitis Psych: Mood ok. Affect normal Neurological: Awake, alert, oriented. No gross abnormality - Constitutional Vitals: Temp Pulse Resp BP Pulse Ox 97.7 F 92 H 23 75/33 100 05/15/21 06:19 05/15/21 12:00 05/15/21 12:00 05/15/21 12:00 05/15/21 09:00 HEART Score - HEART Score Troponin: Troponin T 0.010 ng/mL (0.00-0.029) 05/15/21 08:12 Results - Labs CBC & Chem 7: 05/15/21 08:12 05/15/21 08:12 Labs: Laboratory Last Values WBC 17.0 K/mm3 (4.5-11.0) H 05/15/21 08:12 RBC 4.30 M/mm3 (3.65-5.03) 05/15/21 08:12 Hgb 8.8 gm/dl (11.8-15.2) L 05/15/21 08:12 Hct 26.6 % (35.5-45.6) L 05/15/21 08:12 MCV 62 fl (84-94) L 05/15/21 08:12 MCH 20 pg (28-32) L 05/15/21 08:12 MCHC 33 % (32-34) 05/15/21 08:12 RDW 16.6 % (13.2-15.2) H 05/15/21 08:12 Plt Count 248 K/mm3 (140-440) 05/15/21 08:12 PT 13.5 Sec. (12.2-14.9) 05/15/21 08:12 INR 0.97 (0.87-1.13) 05/15/21 08:12 APTT 33.9 Sec. (24.2-36.6) 05/15/21 08:12 Sodium 136 mmol/L (137-145) L 05/15/21 08:12 Potassium 3.6 mmol/L (3.6-5.0) 05/15/21 08:12 Chloride 72.0 mmol/L (98-107) L 05/15/21 08:12 Carbon Dioxide 35 mmol/L (22-30) H 05/15/21 08:12 Anion Gap 33 mmol/L 05/15/21 08:12 BUN 66 mg/dL (9-20) H 05/15/21 08:12 Creatinine 12.2 mg/dL (0.8-1.3) H 05/15/21 08:12 Estimated GFR 5 ml/min 05/15/21 08:12 BUN/Creatinine Ratio 5 % 05/15/21 08:12 Glucose 87 mg/dL (75-100) 05/15/21 08:12 Calcium 8.6 mg/dL (8.4-10.2) 05/15/21 08:12 Phosphorus 11.20 mg/dL (2.5-4.5) H 05/15/21 08:12 Magnesium 2.00 mg/dL (1.7-2.3) 05/15/21 08:12 Total Bilirubin 0.70 mg/dL (0.1-1.2) 05/15/21 08:12 AST 16 units/L (5-40) 05/15/21 08:12 ALT < 5 units/L (7-56) L 05/15/21 08:12 Alkaline Phosphatase 72 units/L (35-129) 05/15/21 08:12 Total Creatine Kinase 83 units/L (55-170) 05/15/21 08:12 CK-MB (CK-2) < 1.0 ng/mL (0.0-4.0) 05/15/21 08:12 CK-MB (CK-2) Rel Index 1.2 (0-4) 05/15/21 08:12 Troponin T 0.010 ng/mL (0.00-0.029) 05/15/21 08:12 Total Protein 7.9 g/dL (6.3-8.2) 05/15/21 08:12 Albumin 4.7 g/dL (3.9-5) 05/15/21 08:12 Albumin/Globulin Ratio 1.5 % 05/15/21 08:12 Lipase 35 units/L (13-60) 05/15/21 07:56 TSH 1.630 mlU/mL (0.270-4.200) 05/15/21 08:12 Free T4 1.43 ng/dL (0.76-1.46) 05/15/21 08:12 Assessment and Plan Assessment and plan: SIRS - tachycardic , leukocytosis. - endorsed 4 episodes of watery diarrhea. Denied recent change in diet or abx use. - chronic diarrhea - IV fluids, ordered Acute on chronic hypotension - takes midodrine at home as patient has a history of hypotension and postural tachycardia it appears. Diarrhea probably made this worse. - on encounter, asymptomatic while laying. Upon sitting up, HR tachy to 110 and patient felt fatigued and dizzy - ordered 1 L NS bolus and NS at 100 cc/hr x 1 bag. 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 History of Seizures - on keppra 500 mg po bid History of Gout - restart home colchicine and allopurinol. Full code DVT prophylaxis: On warfarin GI prophylaxis: Not indicated
[2021-05-15] MEDS ORDERED: oxyCODONE /ACETAMINOPHEN 5-325MG TAB PO PRN (13:29)
[2021-05-15] MEDS ORDERED: ONDANSETRON 4 MG/2 ML INJ IV PRN (13:29)
[2021-05-15] MEDS ORDERED: ACETAMINOPHEN 325 MG TAB PO PRN (13:29)
[2021-05-15] MEDS ORDERED: NON-FORMULARY EACH (Midodrine Hcl [Midodrine Hcl] 10 MG Tablet) PO SCH (14:00)
[2021-05-15] MEDS: MIDODRINE 5 MG TAB PO SCH ×2 (14:40→18:34)
[2021-05-15] MEDS: WARFARIN 2 MG TAB PO SCH (17:50)
[2021-05-15] MEDS ORDERED: HEPARIN 5,000 UNIT/1 ML VIAL SUB-Q SCH (22:00)
[2021-05-15] MEDS: levETIRAcetam 500 MG TAB PO SCH (22:41)
[2021-05-15] MEDS: FLUDROCORTISONE 0.1 MG TAB PO SCH (22:41)
[2021-05-16] MEDS: MIDODRINE 5 MG TAB PO SCH ×3 (06:12→18:50)
[2021-05-16 06:39] LABS: INR 0.94 (0.87-1.13)
[2021-05-16 06:47] LABS: Hematocrit 23.5 % (35.5-45.6); Hemoglobin 7.8 gm/dl (11.8-15.2); Mean Corpuscular HGB Conc 33 % (32-34); Platelet Count 214 K/mm3 (140-440); Red Blood Count 3.77 M/mm3 (3.65-5.03)
[2021-05-16 06:48] LABS: Mean Corpuscular Volume 62 fl (84-94)
[2021-05-16 06:50] LABS: Albumin 3.8 g/dL (3.9-5); Blood Urea Nitrogen 76 mg/dL (9-20); Calcium 7.2 mg/dL (8.4-10.2); Hemolysis Index 8
[2021-05-16 06:58] LABS: Alanine Aminotransferase < 5 units/L (7-56); BUN/Creatinine Ratio 5
--- NOTE | 2021-05-16 09:20 | Electrocardiograph Report ---
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
[2021-05-16] MEDS ORDERED: CALCIUM GLUCONATE 1,000 MG in SODIUM CHLORIDE 0.9% 100 ML IV NR (09:30)
[2021-05-16] MEDS ORDERED: COLCHICINE 0.6 MG TAB PO SCH (10:00)
[2021-05-16] MEDS: FLUDROCORTISONE 0.1 MG TAB PO SCH ×2 (11:06→23:12)
[2021-05-16] MEDS: allopurinoL 100 MG TAB PO SCH (11:07)
[2021-05-16] MEDS: levETIRAcetam 500 MG TAB PO SCH ×2 (11:07→23:12)
[2021-05-16] MEDS ORDERED: NON-FORMULARY EACH (Potassium Chloride [Klor-Con 10] 10 MEQ Tablet.Er) PO SCH (15:00)
--- NOTE | 2021-05-16 16:05 | Progress Note ---
Assessment and Plan SIRS - tachycardic , leukocytosis. - endorsed 4 episodes of watery diarrhea. Denied recent change in diet or abx use. - chronic diarrhea - IV fluids, ordered Acute on chronic hypotension - takes midodrine at home as patient has a history of hypotension and postural tachycardia it appears. Diarrhea probably made this worse. - 66/22 on encounter, asymptomatic while laying. Upon sitting up, HR tachy to 110 and patient felt fatigued and dizzy - ordered 1 L NS bolus and NS at 100 cc/hr x 1 bag. 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 History of Seizures - on keppra 500 mg po bid History of Gout - restart home colchicine and allopurinol. Full code DVT prophylaxis: On warfarin GI prophylaxis: Not indicated Daily clinical course: 05/16/21: BP remains hypotensive, initiated on midodrine, wait for orthostatic vital signs. replete K, follow BMP. PT eval Subjective Date of service: 05/16/21 Interval history: Patient seen and examined. Medical records and medication list reviewed. No acute event overnight noted by the RN. Patient denies any chest pain or difficulty breathing. Patient is tolerating diet. Discussed plan of care at bedside with patient. Objective - Exam Narrative Exam: GENERAL: well-developed and well-nourished Young male lying on bed appeared to be in no discomfort. HEENT: Normocephalic. Atraumatic. No conjunctival congestion or icterus. Patient has moist mucous membranes. NECK: Supple. Trachea midline. CHEST/LUNGS: Clear to auscultated bilaterally, breathing nonlabored. No wheezes crackles or rhonchi. HEART/CARDIOVASCULAR: Regular in rate and rhythm. S1 and S2 positive. ABDOMEN: Abdomen is soft, nontender. Patient has normal bowel sounds. SKIN: There is no rash. Warm and dry. NEURO: No focal motor deficit. Follows command. MUSCULOSKELETAL: No joint effusion or tenderness. EXTRIMITY: No edema, no cyanosis or clubbing. PSYCH: Cooperative. - Constitutional Vitals: Vital Signs - 12hr 05/16/21 05/16/21 05/16/21 04:30 05:14 05:30 Pulse Rate 71 72 73 Respiratory 18 13 20 Rate Blood Pressure 70/27 70/27 72/30 O2 Sat by Pulse 95 97 96 Oximetry 05/16/21 05/16/21 05/16/21 06:00 06:30 07:00 Pulse Rate 73 72 67 Respiratory 19 12 11 L Rate Blood Pressure 66/29 68/25 58/22 O2 Sat by Pulse 98 100 98 Oximetry 05/16/21 05/16/21 05/16/21 07:30 08:00 08:30 Pulse Rate 70 71 56 L Respiratory 13 21 20 Rate Blood Pressure 66/26 68/30 68/30 O2 Sat by Pulse 100 100 100 Oximetry 05/16/21 05/16/21 05/16/21 09:00 09:30 10:00 Pulse Rate 68 78 70 Respiratory 7 L 15 12 Rate Blood Pressure 59/21 60/23 73/33 O2 Sat by Pulse 98 100 100 Oximetry 05/16/21 05/16/21 05/16/21 11:30 12:00 13:00 Pulse Rate 82 76 74 Respiratory 13 15 14 Rate Blood Pressure 77/14 70/15 79/22 O2 Sat by Pulse 97 89 Oximetry 05/16/21 15:00 Pulse Rate 66 Respiratory 13 Rate Blood Pressure 73/17 O2 Sat by Pulse 96 Oximetry - Labs CBC & Chem 7: 05/16/21 05:27 05/17/21 10:21 Labs: Abnormal lab results 05/16/21 05/16/21 Range/Units 05:27 05:27 Hgb 7.8 L (11.8-15.2) gm/dl Hct 23.5 L (35.5-45.6) % MCV 62 L (84-94) fl MCH 21 L (28-32) pg RDW 17.0 H (13.2-15.2) % Potassium 3.2 L (3.6-5.0) mmol/L Chloride 80.2 L (98-107) mmol/L Carbon Dioxide 32 H (22-30) mmol/L BUN 76 H (9-20) mg/dL Creatinine 14.0 H (0.8-1.3) mg/dL Calcium 7.2 L D (8.4-10.2) mg/dL ALT < 5 L (7-56) units/L Albumin 3.8 L (3.9-5) g/dL HEART Score - HEART Score Troponin: Troponin T 0.010 ng/mL (0.00-0.029) 05/15/21 08:12
[2021-05-16 16:18] LABS: Anisocytosis 1+; Band Neutrophils # (Manual) 0.2 K/mm3; Hypochromasia 2+; Platelet Clumps Rare; Target Cells 1+; Total Cells Counted 100
[2021-05-16 16:19] LABS: Platelet Estimate Consistent w Auto
--- NOTE | 2021-05-16 17:50 | Consultation ---
History of Present Illness - Reason for Consult Consult date: 05/16/21 end stage renal disease - History of Present Illness This is a 35-year-old man with end-stage renal disease on hemodialysis, chronic hypotension and seizure disorder who presented with fatigue and dizziness and was noted to be hypotensive and was subsequently admitted for further workup. Nephrology was consulted for ESRD management. Patient notes 4 episodes of large, watery bowel movements prior to presentation. He also notes presyncopal episode but denies syncope and chest pain. Past History Past Medical History: dialysis, ESRD, seizures Medications and Allergies Allergies Allergy/AdvReac Type Severity Reaction Status Date / Time Iodine and Iodide Containing Allergy Swelling Verified 03/24/17 08:47 Produc povidone-iodine Allergy Swelling Verified 03/24/17 08:47 [From Betadine] soap [From Betadine] Allergy Swelling Verified 03/24/17 08:47 Iodinated Contrast Media AdvReac Swelling Verified 03/24/17 08:47 [Iodinated Contrast Media - IV Dye] IV Contrast AdvReac Swelling Uncoded 03/24/17 08:47 Home Medications Medication Instructions Recorded Confirmed Last Taken Type Colesevelam [Welchol] 625 mg PO BID 10/11/15 04/24/16 04/23/16 History 625 mg Lanthanum Carbonate [Fosrenol] 1,000 mg PO TID 10/11/15 04/24/16 04/23/16 History 1000 mg Midodrine HCl 10 mg PO TID 10/11/15 04/24/16 04/24/16 04:30 History 10 mg Potassium Chloride [Klor-Con 10] 20 meq PO DAILY 10/11/15 04/24/16 04/23/16 History 20 meq Promethazine [Phenergan] 25 mg PO TID PRN 10/11/15 04/16/16 02/24/16 History 25 mg Warfarin Sodium [Coumadin] 4 mg PO 3XW 10/11/15 04/24/16 04/23/16 History 4 mg allopurinoL [Zyloprim] 100 mg PO QDAY 10/11/15 04/24/16 04/23/16 History 100 mg Colchicine [Colcrys] 0.6 mg PO QDAY 04/16/16 04/24/16 Unknown History Acetaminophen [Acetaminophen TAB] 650 mg PO Q4H PRN tablet 09/22/20 Unknown Rx levoFLOXacin [Levaquin TAB] 500 mg PO Q48HR #2 tablet 09/22/20 Unknown Rx Calcium Acetate [Phoslo] 2,001 mg PO TIDWM capsule 10/03/20 Unknown Rx Fludrocortisone [Florinef] 0.1 mg PO BID tablet 10/03/20 Unknown Rx Lanthanum Carbonate [Fosrenol] 1,000 mg PO TIDWM tab.chew 10/03/20 Unknown Rx Midodrine [Proamatine] 10 mg PO TID tablet 10/03/20 Unknown Rx Pantoprazole [Protonix TAB] 20 mg PO QDAY tablet. 10/03/20 Unknown Rx Warfarin [Coumadin] 4 mg PO MoWeFr@1700 #30 tablet 10/03/20 Unknown Rx levETIRAcetam [Keppra TAB] 500 mg PO BID tablet 10/03/20 Unknown Rx oxyCODONE /ACETAMINOPHEN [Percocet 1 tab PO Q6H PRN #30 tablet 10/03/20 Unknown Rx 5/325 mg] Active Meds: Active Medications Acetaminophen (Acetaminophen 325 Mg Tab) 650 mg PO Q4H PRN PRN Reason: Pain MILD(1-3)/Fever >100.5/TUBBS Allopurinol (Allopurinol 100 Mg Tab) 100 mg PO QDAY [facility] Last Admin: 05/16/21 11:07 Dose: 100 mg Documented by: Calcium Acetate (Calcium Acetate 667 Mg Cap) 2,001 mg PO TIDWM [facility] Colchicine (Colchicine 0.6 Mg Tab) 0.6 mg PO QDAY [facility] Fludrocortisone Acetate (Fludrocortisone 0.1 Mg Tab) 0.1 mg PO BID [facility] Last Admin: 05/16/21 11:06 Dose: 0.1 mg Documented by: Lanthanum Carbonate (Lanthanum Carbonate 500 Mg Tab) 1,000 mg PO TIDWM [facility] Levetiracetam (Levetiracetam 500 Mg Tab) 500 mg PO BID [facility] Last Admin: 05/16/21 11:07 Dose: 500 mg Documented by: Midodrine (Midodrine 5 Mg Tab) 10 mg PO 0600,1200,1800 [facility] Last Admin: 05/16/21 11:08 Dose: 10 mg Documented by: Ondansetron HCl (Ondansetron 4 Mg/2 Ml Inj) 4 mg IV Q8H PRN PRN Reason: Nausea And Vomiting Oxycodone/Acetaminophen (Oxycodone /Acetaminophen 5-325mg Tab) 1 tab PO Q6H PRN PRN Reason: Pain, Moderate (4-6) Pantoprazole Sodium (Pantoprazole 20 Mg Tab) 20 mg PO QDAC [facility] Potassium Chloride (Potassium Chloride Er 10 Meq Tab) 10 meq PO QDAY [facility] Sodium Chloride (Sodium Chloride 0.9% 10 Ml Flush Syringe) 10 ml IV BID [facility] Last Admin: 05/16/21 11:06 Dose: 10 ml Documented by: Sodium Chloride (Sodium Chloride 0.9% 10 Ml Flush Syringe) 10 ml IV PRN PRN PRN Reason: LINE FLUSH Warfarin Sodium (Warfarin 2 Mg Tab) 4 mg PO DAILY@1700 [facility]; Protocol Last Admin: 05/15/21 17:50 Dose: Not Given Documented by: Review of Systems Constitutional: no fever, no chills Ears, nose, mouth and throat: no nasal congestion, no nasal discharge Cardiovascular: no chest pain, no edema Respiratory: no cough Gastrointestinal: diarrhea, no nausea, no vomiting Integumentary: no rash, no pruritis Neurological: no weakness, no parathesias Psychiatric: no confusion, no irritability Exam - Vital Signs Vital signs: Vital Signs Pulse Resp 100 H 11 L 05/15/21 06:18 05/15/21 06:18 - Physical Exam Narrative exam: General: No acute distress Neck: Supple, no JVD Chest: Clear to auscultation bilaterally Heart: RRR, S1 and S2, no pericardial rub Abdomen: Soft, nontender, no renal bruit Extremity: No peripheral cyanosis, edema Neurological: Alert, awake, no asterixis Dermatology: No skin rash Psych: No agitation Musculoskeletal: No joint effusion Results - Lab Results 05/16/21 05:27 05/16/21 05:27 Most recent lab results Calcium 7.2 mg/dL (8.4-10.2) L D 05/16/21 05:27 Phosphorus 11.20 mg/dL (2.5-4.5) H 05/15/21 08:12 Magnesium 2.00 mg/dL (1.7-2.3) 05/15/21 08:12 Assessment and Plan Assessment - End-stage renal disease on hemodialysis - Hypotension - Hypokalemia - Hypocalcemia - Anemia of ESRD - Hyperparathyroidism - Hyperphosphatemia Recommendations - He has chronic hypotension but BP outpatient systolic> 90 on midodrine and florinef. - Etiology of decline in bp unclear. Recommend cardiology consult + blood cultures - Doubt high output heart failure as patient has a graft - Hold HD until hemodynamically stable - LR 500 cc ordered for today - Monitor labs and volume status daily - Continue flornief and midodrine - S/p IV calcium, continue PO supplementation - Epogen with HD - Continue phosphorus binders - OK to liberate salt in diet - Renally dose medication for creatinine clearance less than 15 cc/min
[2021-05-16] MEDS ORDERED: POTASSIUM CHLORIDE ER 10 MEQ TAB PO SCH (18:00)
[2021-05-16] MEDS ORDERED: LACTATED RINGERS 500 ML IV SCH (18:30)
[2021-05-16] MEDS: WARFARIN 2 MG TAB PO SCH (18:50)
[2021-05-16] MEDS: CALCIUM ACETATE 667 MG CAP PO SCH (18:50)
[2021-05-16] MEDS: LANTHANUM CARBONATE 500 MG TAB PO SCH (18:50)
[2021-05-16] MEDS: CALCIUM CARB/VIT D3/MINERALS 600 MG/800 UNITS TAB PO SCH (23:11)
[2021-05-17 05:59] LABS: INR 0.97 (0.87-1.13)
[2021-05-17] MEDS: MIDODRINE 5 MG TAB PO SCH ×2 (06:24→11:16)
[2021-05-17] MEDS ORDERED: PANTOPRAZOLE 20 MG TAB PO SCH (07:30)
[2021-05-17] MEDS: LANTHANUM CARBONATE 500 MG TAB PO SCH (09:07)
[2021-05-17] MEDS: CALCIUM ACETATE 667 MG CAP PO SCH ×2 (09:08→15:10)
--- NOTE | 2021-05-17 09:29 | Progress Note ---
Subjective Interval history: Patient was seen today for follow-up of multiple renal related issues, admitted here with seizure, dialysis dependent chronically hypokalemic No complaints of any chest pain pressure or shortness of breath Interdisciplinary notes that also reviewed Events of 24 hours vitals labs intake output medications were reviewed Past medical history: Reviewed Family history: Reviewed Social history: Reviewed Allergies: Reviewed Physical examination: Vitals: Reviewed HEENT: No pallor or icterus oral mucosa moist Neck: Supple no JVD no thyromegaly Chest: Bilateral clear to auscultation anteriorly Heart: Regular rate and rhythm S1-S2 heard no S3-S4 Abdomen: Soft nontender no voluntary guarding rigidity rebound Extremity: Dry skin less than 1+ peripheral edema Psychiatric: No evidence of agitation and aggression noted Dermatology: No petechial rashes Labs and x-rays: Reviewed from today Assessment and plan #End-stage renal disease: Hemodialysis when patient is more stable #Anemia: We will need erythropoietin periodically #Leukocytosis: Appears to have resolved? Stress response? Infection? Dehydration #Admitted with the hypotension and seizure #Chronic hypokalemia, needs ongoing replacement # Contraction alkalosis likely patient does need IV fluid #Severe hyperphosphatemia we will start her on calcium acetate 3 cap po 3 times a day Patient was adequately counseled and educated regarding all the renal related issues Laboratory studies, have been explained to the patient All questions were answered and simple Indonesian We'll continue to follow and make recommendation for renal standpoint Objective - Vital Signs Vital signs: Vital Signs - 12hr 05/16/21 05/17/21 05/17/21 23:04 03:37 05:00 Temperature 99.0 F 97.9 F Pulse Rate 74 86 Respiratory 16 18 Rate Blood Pressure 91/55 78/34 O2 Sat by Pulse 87 96 96 Oximetry 05/17/21 08:00 Temperature 98.4 F Pulse Rate 68 Respiratory 16 Rate Blood Pressure 71/36 O2 Sat by Pulse 98 Oximetry - Lab 05/16/21 05:27 05/16/21 05:27 Most recent lab results Calcium 7.2 mg/dL (8.4-10.2) L D 05/16/21 05:27 Phosphorus 11.20 mg/dL (2.5-4.5) H 05/15/21 08:12 Magnesium 2.00 mg/dL (1.7-2.3) 05/15/21 08:12 Medications & Allergies - Medications Allergies/Adverse Reactions: Allergies Iodine and Iodide Containing Produc Allergy (Verified 03/24/17 08:47) Swelling povidone-iodine [From Betadine] Allergy (Verified 03/24/17 08:47) Swelling soap [From Betadine] Allergy (Verified 03/24/17 08:47) Swelling Iodinated Contrast Media [Iodinated Contrast Media - IV Dye] Adverse Reaction (Verified 03/24/17 08:47) Swelling IV Contrast Adverse Reaction (Uncoded 03/24/17 08:47) Swelling Home Medications: Home Medications Medication Instructions Recorded Confirmed Last Taken Type Colesevelam [Welchol] 625 mg PO BID 10/11/15 04/24/16 04/23/16 History 625 mg Lanthanum Carbonate [Fosrenol] 1,000 mg PO TID 10/11/15 04/24/16 04/23/16 History 1000 mg Midodrine HCl 10 mg PO TID 10/11/15 04/24/16 04/24/16 04:30 History 10 mg Potassium Chloride [Klor-Con 10] 20 meq PO DAILY 10/11/15 04/24/16 04/23/16 History 20 meq Promethazine [Phenergan] 25 mg PO TID PRN 10/11/15 04/16/16 02/24/16 History 25 mg Warfarin Sodium [Coumadin] 4 mg PO 3XW 10/11/15 04/24/16 04/23/16 History 4 mg allopurinoL [Zyloprim] 100 mg PO QDAY 10/11/15 04/24/16 04/23/16 History 100 mg Colchicine [Colcrys] 0.6 mg PO QDAY 04/16/16 04/24/16 Unknown History Acetaminophen [Acetaminophen TAB] 650 mg PO Q4H PRN tablet 09/22/20 Unknown Rx levoFLOXacin [Levaquin TAB] 500 mg PO Q48HR #2 tablet 09/22/20 Unknown Rx Calcium Acetate [Phoslo] 2,001 mg PO TIDWM capsule 10/03/20 Unknown Rx Fludrocortisone [Florinef] 0.1 mg PO BID tablet 10/03/20 Unknown Rx Lanthanum Carbonate [Fosrenol] 1,000 mg PO TIDWM tab.chew 10/03/20 Unknown Rx Midodrine [Proamatine] 10 mg PO TID tablet 10/03/20 Unknown Rx Pantoprazole [Protonix TAB] 20 mg PO QDAY tablet. 10/03/20 Unknown Rx Warfarin [Coumadin] 4 mg PO MoWeFr@1700 #30 tablet 10/03/20 Unknown Rx levETIRAcetam [Keppra TAB] 500 mg PO BID tablet 10/03/20 Unknown Rx oxyCODONE /ACETAMINOPHEN [Percocet 1 tab PO Q6H PRN #30 tablet 10/03/20 Unknown Rx 5/325 mg] Active Medications: Generic Name Dose Route Start Last Admin Trade Name Freq PRN Reason Stop Dose Admin Acetaminophen 650 mg 05/15/21 13:29 Acetaminophen 325 Mg Tab PO Q4H PRN Pain MILD(1-3)/Fever >100.5/TUBBS Allopurinol 100 mg 05/16/21 10:00 05/16/21 11:07 Allopurinol 100 Mg Tab PO 100 mg QDAY ALONSO Administration Calcium Acetate 2,001 mg 05/16/21 17:00 05/17/21 09:08 Calcium Acetate 667 Mg Cap PO 2,001 mg TIDWM ALONSO Administration Colchicine 0.6 mg 05/16/21 10:00 Colchicine 0.6 Mg Tab PO QDAY ALONSO Fludrocortisone Acetate 0.1 mg 05/15/21 22:00 05/16/21 23:12 Fludrocortisone 0.1 Mg Tab PO 0.1 mg BID ALONSO Administration Lactated Ringer's 500 mls @ 100 mls/hr 05/16/21 18:30 05/16/21 21:36 Lactated Ringers IV 100 mls/hr DIRECT ALONSO Administration Lanthanum Carbonate 1,000 mg 05/16/21 17:00 05/17/21 09:07 Lanthanum Carbonate 500 Mg Tab PO 1,000 mg TIDWM ALONSO Administration Levetiracetam 500 mg 05/15/21 22:00 05/16/21 23:12 Levetiracetam 500 Mg Tab PO 500 mg BID ALONSO Administration Midodrine 10 mg 05/15/21 14:00 05/17/21 06:24 Midodrine 5 Mg Tab PO 10 mg 0600,1200,1800 ALONSO Administration Multivitamins/Minerals 1 each 05/16/21 22:00 05/16/21 23:11 Calcium Carb/Vit D3/Minerals 600 Mg/800 Units Tab PO 1 each BID ALONSO Administration Ondansetron HCl 4 mg 05/15/21 13:29 Ondansetron 4 Mg/2 Ml Inj IV Q8H PRN Nausea And Vomiting Oxycodone/Acetaminophen 1 tab 05/15/21 13:29 Oxycodone /Acetaminophen 5-325mg Tab PO Q6H PRN Pain, Moderate (4-6) Pantoprazole Sodium 20 mg 05/17/21 07:30 05/17/21 09:07 Pantoprazole 20 Mg Tab PO 20 mg QDAC ALONSO Administration Potassium Chloride 10 meq 05/16/21 18:00 05/16/21 18:50 Potassium Chloride Er 10 Meq Tab PO 10 meq QDAY ALONSO Administration Sodium Chloride 10 ml 05/15/21 22:00 05/16/21 22:00 Sodium Chloride 0.9% 10 Ml Flush Syringe IV 10 ml BID ALONSO Administration Sodium Chloride 10 ml 05/15/21 13:29 Sodium Chloride 0.9% 10 Ml Flush Syringe IV PRN PRN LINE FLUSH Warfarin Sodium 4 mg 05/15/21 17:00 05/16/21 18:50 Warfarin 2 Mg Tab PO 4 mg DAILY@1700 ALONSO Administration Protocol
[2021-05-17] MEDS ORDERED: POTASSIUM CHLORIDE ER 10 MEQ TAB PO SCH (09:31)
[2021-05-17] MEDS ORDERED: WARFARIN SODIUM 4 MG PO SCH (10:00)
[2021-05-17] MEDS: CALCIUM CARB/VIT D3/MINERALS 600 MG/800 UNITS TAB PO SCH (11:15)
[2021-05-17] MEDS: levETIRAcetam 500 MG TAB PO SCH (11:15)
[2021-05-17] MEDS: FLUDROCORTISONE 0.1 MG TAB PO SCH (11:15)
[2021-05-17] MEDS: allopurinoL 100 MG TAB PO SCH (11:16)
[2021-05-17] MEDS ORDERED: POTASSIUM CHLORIDE ER 20 MEQ TAB PO SCH (12:00)
[2021-05-17 13:11] VITALS: BP 70/35
[2021-05-17] MEDS ORDERED: CALCIUM ACETATE 667 MG CAP PO SCH (14:00)
[2021-05-17] MEDS ORDERED: POTASSIUM CHLORIDE ER 20 MEQ TAB PO ONE (14:33)
--- NOTE | 2021-05-17 14:47 | Discharge Summary ---
Providers - Providers Date of Admission: 05/15/21 12:34 Date of discharge: 05/17/21 Attending physician: ANDREA POTTER 05/15/21 10:31 Consult to Physician [CONS] Urgent Comment: Consulting Provider: BHAKTI ENRIQUEZ Physician Instructions: Reason For Exam: ESRD 05/16/21 10:55 Physical Therapy Evaluation and Treat [CONS] Routine Comment: Reason For Exam: Debility Primary care physician: [employer] Hospitalization Condition: Stable Hospital course: 35-year-old male with past medical history of ESRD on HD, seizure disorder, c hronic diarrhea, chronic hypotension on midodrine and Florinef , AV graft embolism, Covid infection September 2020 presenting with chief complaint of fatigue and dizziness which started after having 4 episodes of large-volume watery diarrhea a day prior to this admission. His blood pressure dropped to the 60 systolic. He stated that he felt weak, fatigued, dizzy during this time. Patient was admitted to the hospital, placed on gentle IV fluid hydration. His BP was monitored. Dialysis was on hold. Nephrology was consulted. Patient also noted to have hypokalemia which was repleted. His home dose of midodrine and Florinef was resumed. He was evaluated for orthostatic hypotension and that was ruled out. Patient symptom improved and was not feeling dizzy on ambulation. Patient was discharged home in stable condition and recommended to initiate hemodialysis from the next day. Discharge planning management was discussed with the patient and he verbalized understanding. Disposition: 01 HOME / SELF CARE / HOMELESS Final Discharge Diagnosis (Prints w/discharge instructions): --SIRS, due to diarrhea, resolved. --Acute on chronic hypotension, likely due to diarrhea. --ESRD on HD. --History of DVT on Coumadin. --History of seizure. --History of gout Time spent for discharge: 34 minutes Core Measure Documentation - Palliative Care Palliative Care/ Comfort Measures: Not Applicable - Core Measures Any of the following diagnoses?: none Exam - Physical Exam Narrative exam: GENERAL: well-developed and well-nourished Young male lying on bed appeared to be in no discomfort. HEENT: Normocephalic. Atraumatic. No conjunctival congestion or icterus. Patient has moist mucous membranes. NECK: Supple. Trachea midline. CHEST/LUNGS: Clear to auscultated bilaterally, breathing nonlabored. No wheezes crackles or rhonchi. HEART/CARDIOVASCULAR: Regular in rate and rhythm. S1 and S2 positive. ABDOMEN: Abdomen is soft, nontender. Patient has normal bowel sounds. SKIN: There is no rash. Warm and dry. NEURO: No focal motor deficit. Follows command. MUSCULOSKELETAL: No joint effusion or tenderness. EXTRIMITY: No edema, no cyanosis or clubbing. PSYCH: Cooperative. - Constitutional Vitals: Temp Pulse Resp BP Pulse Ox 98.3 F 66 20 70/35 98 05/17/21 11:41 05/17/21 11:41 05/17/21 11:41 05/17/21 11:41 05/17/21 11:41 Plan Activity: advance as tolerated Weight Bearing Status: Weight Bear as Tolerated Diet: renal Additional Instructions: Follow-up at dialysis clinic for your next dialysis Follow up with: PRIMARY MD ADELAIDA [Primary Care Provider] - 7 Days Forms: Warfarin Discharge Instruction
== END 2021-05-17 16:46 | disposition home or self-care (01) | DRG 391 ==
LOC: ED 06:00 → 4A 10:39 → OBSVTOIN 12:34 → 4A 05-16 06:34
PROVIDERS: ADMIT Internal Medicine; ATTEND Internal Medicine
DX: R19.7 Diarrhea, unspecified (principal); N18.6 End stage renal disease; R65.10 Systemic inflammatory response syndrome (SIRS) of non-infectious origin without acute organ dysfunction; E87.6 Hypokalemia; I95.89 Other hypotension; D63.1 Anemia in chronic kidney disease; Z99.2 Dependence on renal dialysis; G40.909 Epilepsy, unspecified, not intractable, without status epilepticus; M10.9 Gout, unspecified; Z91.041 Radiographic dye allergy status; Z86.718 Personal history of other venous thrombosis and embolism; Z79.01 Long term (current) use of anticoagulants; E21.3 Hyperparathyroidism, unspecified
CPT/HCPCS: 36415; 71045; 80048; 80053; 82533; 82550; 82553; 83690; 83735; 83930; 84100; 84439; 84443; 84484; 84550; 85007; 85025; 85610; 85730; 87040; 93005; 93306; G0378; J7030; J7040; J7120

== ENCOUNTER 2021-06-23 07:30 | Emergency (ER) | payer MEDICARE ==
--- NOTE | 2021-06-23 08:35 | Emergency Department Report ---
HPI - General Time Seen by Provider: 06/23/21 08:30 - HPI HPI: Outside of room 23 The patient is a 36-year-old male present with a chief complaint of hypotension. Patient reportedly has chronic hypotension but was lower than his normal at hemodialysis today so he was sent to the ED by the dialysis staff. While in route the patient received some IV fluids and his blood pressure is currently 88 systolic. The patient states he has a history of chronic hypotension in his bas yong systolic is in the 80s and above. Patient is currently asymptomatic but states he awakened feeling lightheaded and with his chronic diarrhea. The patient was last dialyzed 2 days ago ED Past Medical Hx - Past Medical History Hx Hypertension: Yes Hx Deep Vein Thrombosis: Yes Hx Pulmonary Embolism: Yes Hx Renal Disease: Yes Hx Seizures: Yes Hx COPD: Yes Additional medical history: chronic diarrhea. Chronic hypotension (baseline systolic in the 80s) - Surgical History Additional Surgical History: AV fistula right arm - Family History Family history: no significant - Social History Smoking Status: Never Smoker Substance Use Type: None - Medications Home Medications: Home Medications Medication Instructions Recorded Confirmed Last Taken Type Colesevelam [Welchol] 625 mg PO BID 10/11/15 04/24/16 04/23/16 History 625 mg Potassium Chloride [Klor-Con 10] 20 meq PO DAILY 10/11/15 04/24/16 04/23/16 History 20 meq Promethazine [Phenergan] 25 mg PO TID PRN 10/11/15 04/16/16 02/24/16 History 25 mg allopurinoL [Zyloprim] 100 mg PO QDAY 10/11/15 04/24/16 04/23/16 History 100 mg Colchicine [Colcrys] 0.6 mg PO QDAY 04/16/16 04/24/16 Unknown History Acetaminophen [Acetaminophen TAB] 650 mg PO Q4H PRN tablet 09/22/20 Unknown Rx Calcium Acetate [Phoslo] 2,001 mg PO TIDWM capsule 10/03/20 Unknown Rx Fludrocortisone [Florinef] 0.1 mg PO BID tablet 10/03/20 Unknown Rx Lanthanum Carbonate [Fosrenol] 1,000 mg PO TIDWM tab.chew 10/03/20 Unknown Rx Midodrine [Proamatine] 10 mg PO TID tablet 10/03/20 Unknown Rx Pantoprazole [Protonix TAB] 20 mg PO QDAY tablet. 10/03/20 Unknown Rx Warfarin [Coumadin] 4 mg PO MoWeFr@1700 #30 tablet 10/03/20 Unknown Rx levETIRAcetam [Keppra TAB] 500 mg PO BID tablet 10/03/20 Unknown Rx oxyCODONE /ACETAMINOPHEN [Percocet 1 tab PO Q6H PRN #30 tablet 10/03/20 Unknown Rx 5/325 mg] ED Review of Systems ROS: Stated complaint: HYPOTENSION Other details as noted in HPI Constitutional: no symptoms reported Eyes: denies: eye pain ENT: denies: throat pain Respiratory: no symptoms reported Cardiovascular: denies: chest pain Endocrine: no symptoms reported Gastrointestinal: diarrhea. denies: abdominal pain Musculoskeletal: denies: back pain Neurological: denies: headache Physical Exam - Physical Exam Vital Signs: Vital Signs 06/23/21 06/23/21 06/23/21 08:24 10:07 10:15 Temperature 97.6 F Pulse Rate 86 73 77 Respiratory 16 15 13 Rate Blood Pressure 75/30 84/16 O2 Sat by Pulse 99 Oximetry Physical Exam: GENERAL: The patient is well-developed well-nourished male lying on stretcher not appearing to be in acute distress. [] HEENT: Normocephalic. Atraumatic. Extraocular motions are intact. Patient has moist mucous membranes. NECK: Supple. Trachea midline CHEST/LUNGS: Clear to auscultation. There is no respiratory distress noted. HEART/CARDIOVASCULAR: Regular. There is no tachycardia. There is no gallop rub or murmur. ABDOMEN: Abdomen is soft, nontender. Patient has normal bowel sounds. There is no abdominal distention. SKIN: There is no rash. There is no edema. There is no diaphoresis. NEURO: The patient is awake, alert, and oriented. The patient is cooperative. The patient has no focal neurologic deficits. The patient has normal speech. GCS 15 MUSCULOSKELETAL: There is no evidence of acute injury. ED Medical Decision Making - Lab Data Result diagrams: 06/23/21 08:45 06/23/21 08:45 - Differential Diagnosis Hypotension Critical care attestation.: If time is entered above; I have spent that time in minutes in the direct care of this critically ill patient, excluding procedure time. ED Disposition Clinical Impression: ESRD (end stage renal disease) Disposition: 01 HOME / SELF CARE / HOMELESS Is pt being admited?: No Does the pt Need Aspirin: No Condition: Stable Instructions: Dialysis Additional Instructions: Return to the emergency department should you develop worsening symptoms, inability to tolerate food or liquids, high fever or any other concerns Time of Disposition: 10:31 (DC to dialysis)
[2021-06-23 09:21] LABS: Basophils # (Auto) 0.1 K/mm3 (0.0-0.1); Basophils % (Auto) 1.2 % (0.0-1.8); Eosinophils # (Auto) 0.1 K/mm3 (0.0-0.4); Eosinophils % (Auto) 0.9 % (0.0-4.3); Hematocrit 33.4 % (35.5-45.6); Hemoglobin 10.6 gm/dl (11.8-15.2); Lymphocytes # (Auto) 1.9 K/mm3 (1.2-5.4); Lymphocytes % (Auto) 18.4 % (13.4-35.0); Mean Corpuscular HGB Conc 32 % (32-34); Monocytes # (Auto) 0.6 K/mm3 (0.0-0.8); Monocytes % (Auto) 5.7 % (0.0-7.3); Platelet Count 247 K/mm3 (140-440); Red Blood Count 5.28 M/mm3 (3.65-5.03); Red Cell Distribution Width 16.5 % (13.2-15.2)
[2021-06-23 09:31] LABS: Calcium 8.3 mg/dL (8.4-10.2)
[2021-06-23 09:40] LABS: Mean Corpuscular Volume 63 fl (84-94)
[2021-06-23 11:44] VITALS: BP 95/28
== END 2021-06-23 12:20 | disposition home or self-care (01) ==
LOC: ED 07:30
DX: I12.0 Hypertensive chronic kidney disease with stage 5 chronic kidney disease or end stage renal disease (principal); N18.6 End stage renal disease; K52.9 Noninfective gastroenteritis and colitis, unspecified; I95.89 Other hypotension; R56.9 Unspecified convulsions; J44.9 Chronic obstructive pulmonary disease, unspecified; Z98.890 Other specified postprocedural states
CPT/HCPCS: 36415; 80048; 85025; 99283

== ENCOUNTER 2021-06-28 09:24 | Emergency (ER) | payer MEDICARE ==
--- NOTE | 2021-06-28 10:45 | Emergency Department Report ---
ED General Adult HPI - General Chief complaint: Headache Stated complaint: HEADACHE Time Seen by Provider: 06/28/21 09:31 Source: patient Mode of arrival: Stretcher Limitations: No Limitations - History of Present Illness Initial comments: Patient is a 36 years old male with history of end-stage renal disease on hemodialysis. Patient brought to the emergency room from a dialysis center for evaluation of a headache has been going on for 1 week now. Patient stated that he finished his dialysis. Patient described the headache as global, throbbing in nature. Patient denied any neck pain. No fever or chills. - Related Data Home Medications Medication Instructions Recorded Confirmed Last Taken Colesevelam [Welchol] 625 mg PO BID 10/11/15 04/24/16 04/23/16 625 mg Potassium Chloride [Klor-Con 10] 20 meq PO DAILY 10/11/15 04/24/16 04/23/16 20 meq Promethazine [Phenergan] 25 mg PO TID PRN 10/11/15 04/16/16 02/24/16 25 mg allopurinoL [Zyloprim] 100 mg PO QDAY 10/11/15 04/24/16 04/23/16 100 mg Colchicine [Colcrys] 0.6 mg PO QDAY 04/16/16 04/24/16 Unknown Previous Rx's Medication Instructions Recorded Last Taken Type Acetaminophen [Acetaminophen TAB] 650 mg PO Q4H PRN tablet 09/22/20 Unknown Rx Calcium Acetate [Phoslo] 2,001 mg PO TIDWM capsule 10/03/20 Unknown Rx Fludrocortisone [Florinef] 0.1 mg PO BID tablet 10/03/20 Unknown Rx Lanthanum Carbonate [Fosrenol] 1,000 mg PO TIDWM tab.chew 10/03/20 Unknown Rx Midodrine [Proamatine] 10 mg PO TID tablet 10/03/20 Unknown Rx Pantoprazole [Protonix TAB] 20 mg PO QDAY tablet. 10/03/20 Unknown Rx Warfarin [Coumadin] 4 mg PO MoWeFr@1700 #30 tablet 10/03/20 Unknown Rx levETIRAcetam [Keppra TAB] 500 mg PO BID tablet 10/03/20 Unknown Rx oxyCODONE /ACETAMINOPHEN [Percocet 1 tab PO Q6H PRN #30 tablet 10/03/20 Unknown Rx 5/325 mg] Allergies Allergy/AdvReac Type Severity Reaction Status Date / Time Iodine and Iodide Containing Allergy Swelling Verified 03/24/17 08:47 Produc povidone-iodine Allergy Swelling Verified 03/24/17 08:47 [From Betadine] soap [From Betadine] Allergy Swelling Verified 03/24/17 08:47 Iodinated Contrast Media AdvReac Swelling Verified 03/24/17 08:47 [Iodinated Contrast Media - IV Dye] IV Contrast AdvReac Swelling Uncoded 03/24/17 08:47 ED Review of Systems ROS: Stated complaint: HEADACHE Other details as noted in HPI Comment: All other systems reviewed and negative Constitutional: denies: chills, fever Respiratory: denies: cough, shortness of breath, SOB with exertion Cardiovascular: denies: chest pain, palpitations Genitourinary: denies: urgency, dysuria, frequency, hematuria Neurological: headache. denies: weakness, numbness, paresthesias, confusion ED Past Medical Hx - Past Medical History Hx Hypertension: Yes Hx Deep Vein Thrombosis: Yes Hx Pulmonary Embolism: Yes Hx Renal Disease: Yes Hx Seizures: Yes Hx COPD: Yes Additional medical history: chronic diarrhea. Chronic hypotension (baseline systolic in the 80s). PEG tube - Surgical History Additional Surgical History: PEG tube insertion. AV fistula right arm - Social History Smoking Status: Never Smoker Substance Use Type: None - Medications Home Medications: Home Medications Medication Instructions Recorded Confirmed Last Taken Type Colesevelam [Welchol] 625 mg PO BID 10/11/15 04/24/16 04/23/16 History 625 mg Potassium Chloride [Klor-Con 10] 20 meq PO DAILY 10/11/15 04/24/16 04/23/16 History 20 meq Promethazine [Phenergan] 25 mg PO TID PRN 10/11/15 04/16/16 02/24/16 History 25 mg allopurinoL [Zyloprim] 100 mg PO QDAY 10/11/15 04/24/16 04/23/16 History 100 mg Colchicine [Colcrys] 0.6 mg PO QDAY 04/16/16 04/24/16 Unknown History Acetaminophen [Acetaminophen TAB] 650 mg PO Q4H PRN tablet 09/22/20 Unknown Rx Calcium Acetate [Phoslo] 2,001 mg PO TIDWM capsule 10/03/20 Unknown Rx Fludrocortisone [Florinef] 0.1 mg PO BID tablet 10/03/20 Unknown Rx Lanthanum Carbonate [Fosrenol] 1,000 mg PO TIDWM tab.chew 10/03/20 Unknown Rx Midodrine [Proamatine] 10 mg PO TID tablet 10/03/20 Unknown Rx Pantoprazole [Protonix TAB] 20 mg PO QDAY tablet. 10/03/20 Unknown Rx Warfarin [Coumadin] 4 mg PO MoWeFr@1700 #30 tablet 10/03/20 Unknown Rx levETIRAcetam [Keppra TAB] 500 mg PO BID tablet 10/03/20 Unknown Rx oxyCODONE /ACETAMINOPHEN [Percocet 1 tab PO Q6H PRN #30 tablet 10/03/20 Unknown Rx 5/325 mg] ED Physical Exam - General Limitations: No Limitations General appearance: alert, in no apparent distress - Head Head exam: Present: atraumatic, normocephalic, normal inspection - Eye Eye exam: Present: normal appearance, PERRL - ENT ENT exam: Present: normal exam, normal orophraynx, mucous membranes moist - Neck Neck exam: Present: normal inspection, full ROM. Absent: tenderness, meningismus - Respiratory Respiratory exam: Present: normal lung sounds bilaterally - Cardiovascular Cardiovascular Exam: Present: regular rate, normal rhythm, normal heart sounds - GI/Abdominal GI/Abdominal exam: Present: soft, normal bowel sounds. Absent: distended, tenderness, guarding, rebound, rigid, organomegaly, mass, hernia - Extremities Exam Extremities exam: Present: normal inspection, full ROM, normal capillary refill. Absent: tenderness - Back Exam Back exam: Present: normal inspection, full ROM. Absent: CVA tenderness (R), CVA tenderness (L) - Neurological Exam Neurological exam: Present: alert, oriented X3, CN II-XII intact - Psychiatric Psychiatric exam: Present: normal mood - Skin Skin exam: Present: warm, intact, normal color ED Course Vital Signs 06/28/21 06/28/21 06/28/21 09:33 09:45 10:01 Temperature Pulse Rate 86 80 75 Respiratory 14 10 L 18 Rate Blood Pressure 91/34 78/36 O2 Sat by Pulse 97 Oximetry 06/28/21 06/28/21 06/28/21 10:06 10:15 10:56 Temperature 97.7 F Pulse Rate 82 77 Respiratory 15 15 12 Rate Blood Pressure 80/32 80/32 O2 Sat by Pulse 98 100 Oximetry 06/28/21 06/28/21 11:01 11:15 Temperature Pulse Rate 82 59 L Respiratory 18 19 Rate Blood Pressure 76/34 66/24 O2 Sat by Pulse 100 100 Oximetry - Reevaluation(s) Reevaluation #1: 06/28/21 11:34 Patient blood pressure is 80/32. Patient stated that he always runs a low blood pressure. I reviewed patient records from previous visit. Patient blood pressure run low 60-80 systolic and 25-42 diastolic. ED Medical Decision Making - Lab Data Result diagrams: 06/28/21 13:53 06/28/21 13:53 - Radiology Data Radiology results: report reviewed - Medical Decision Making Patient is a 36 years old male with history of end-stage renal disease on hemodialysis. Patient brought to the emergency room from a dialysis center for evaluation of a headache has been going on for 1 week now. Patient stated that he finished his dialysis. Patient described the headache as global, throbbing in nature. Patient denied any neck pain. No fever or chills. Patient remained stable in the ER with his normal low blood pressure. CT brain is negative for acute finding. Patient received Toradol 30 mg IM. Patient given prescription for Tylenol 3 and advised to follow-up with his primary doctor in the next 2 to 3 days and to return to the ER if he develop any new symptoms. Critical care attestation.: If time is entered above; I have spent that time in minutes in the direct care of this critically ill patient, excluding procedure time. ED Disposition Clinical Impression: Acute headache, End stage renal disease on dialysis Disposition: 01 HOME / SELF CARE / HOMELESS Is pt being admited?: No Condition: Stable Instructions: General Headache Without Cause, [id number] Referrals: PRIMARY CARE, [Primary Care Provider] - 3-5 Days
--- NOTE | 2021-06-28 11:03 | Cat Scan Report ---
CT head/brain wo con INDICATION: headache. TECHNIQUE: All CT scans at this location are performed using CT dose reduction for ALARA by means of automated e xposure control. COMPARISON: None available. FINDINGS: There is no evidence of hemorrhage, hydrocephalus, brain edema, or mass effect/mass lesion. There is overall normal brain formation and brain volume for the patient's age. Ventricular and cisternal/sulc al size is normal for age. Scattered dural calcifications can be seen in the setting of chronic renal disease. The included paranasal sinuses and mastoid air cells are clear. The orbits appear unremarka ble. IMPRESSION: 1. No acute findings. Signer Name: Corky Nettles MD Signed: 06/28/2021 10:59 AM Workstation Name: [id number]
[2021-06-28 11:27] VITALS: BP 66/24
[2021-06-28] MEDS ORDERED: KETOROLAC 30 MG/1 ML INJ IM ONE (13:25)
[2021-06-28 13:57] LABS: Basophils # (Auto) 0.1 K/mm3 (0.0-0.1); Basophils % (Auto) 1.3 % (0.0-1.8); Eosinophils # (Auto) 0.2 K/mm3 (0.0-0.4); Eosinophils % (Auto) 2.5 % (0.0-4.3); Hematocrit 31.4 % (35.5-45.6); Hemoglobin 10.3 gm/dl (11.8-15.2); Lymphocytes # (Auto) 1.6 K/mm3 (1.2-5.4); Lymphocytes % (Auto) 21.4 % (13.4-35.0); Mean Corpuscular HGB Conc 33 % (32-34); Monocytes # (Auto) 0.6 K/mm3 (0.0-0.8); Monocytes % (Auto) 7.4 % (0.0-7.3); Platelet Count 213 K/mm3 (140-440); Red Blood Count 4.99 M/mm3 (3.65-5.03); Red Cell Distribution Width 16.6 % (13.2-15.2)
[2021-06-28 13:58] LABS: Mean Corpuscular Volume 63 fl (84-94)
[2021-06-28 14:17] LABS: Calcium 8.6 mg/dL (8.4-10.2)
== END 2021-06-28 15:02 | disposition home or self-care (01) ==
LOC: ED 09:24
DX: R51.9 Headache, unspecified (principal); N18.6 End stage renal disease; I12.0 Hypertensive chronic kidney disease with stage 5 chronic kidney disease or end stage renal disease; J44.9 Chronic obstructive pulmonary disease, unspecified; R19.7 Diarrhea, unspecified; Z98.890 Other specified postprocedural states; Z88.8 Allergy status to other drugs, medicaments and biological substances
CPT/HCPCS: 36415; 70450; 80048; 85025; 96372; 99284; J1885

== ENCOUNTER 2021-07-09 10:15 | Inpatient (IN) | payer MEDICARE ==
[2021-07-09] MEDS ORDERED: oxyCODONE /ACETAMINOPHEN 5-325MG TAB PO ONE (10:41)
--- NOTE | 2021-07-09 10:44 | Emergency Department Report ---
HPI - General Chief Complaint: Weakness Time Seen by Provider: 07/09/21 10:33 - HPI HPI: 36-year-old male presents to the emergency department with a complaint of a 1 week history of a headache, bilateral jaw pain causing difficulty with opening his jaw and eating, and some generalized weakness. Patient has a past medical history of seizures, visual impairment, and end-stage renal disease on hemodialysis on Saturday/Saturday/Saturday. His primary care physician is Dr. Coburn and his suction drum drier operator is Dr. Jennings. He says that he saw someone from Dr. Coburn's office yesterday and was given an order for an MRI of either the head or face, he is not sure. He is otherwise not taking anything for his symptoms prior to presentation. He denies any fever, numbness or paresthesias, chest pain, shortness of breath, neck pain, back pain, focal or lateralizing weakness. No recent travel or sick contacts at home. The headache is currently 6 out of 10 in intensity. It has been mostly right-sided but sometimes he will feel it on the left side or generalized. No known aggravating or alleviating factors. ED Past Medical Hx - Past Medical History Previous Medical History?: Yes Hx Hypertension: Yes Hx Deep Vein Thrombosis: Yes Hx Pulmonary Embolism: Yes Hx Renal Disease: Yes (HD M-W-F) Hx Seizures: Yes Hx COPD: Yes Additional medical history: chronic diarrhea. Chronic hypotension (baseline systolic in the 80s). PEG tube - Surgical History Past Surgical History?: Yes Additional Surgical History: PEG tube insertion. AV fistula right arm - Social History Smoking Status: Never Smoker Substance Use Type: None - Medications Home Medications: Home Medications Medication Instructions Recorded Confirmed Last Taken Type Colesevelam [Welchol] 625 mg PO BID 10/11/15 07/09/21 04/23/16 History 625 mg Potassium Chloride [Klor-Con 10] 20 meq PO DAILY 10/11/15 07/09/21 07/09/21 History Promethazine [Phenergan] 25 mg PO TID PRN 10/11/15 07/09/21 02/24/16 History 25 mg allopurinoL [Zyloprim] 100 mg PO QDAY 10/11/15 07/09/21 1 Day Ago History ~07/08/21 Colchicine [Colcrys] 0.6 mg PO QDAY 04/16/16 07/10/21 07/07/21 18:00 History Acetaminophen [Acetaminophen TAB] 650 mg PO Q4H PRN tablet 09/22/20 07/09/21 U nknown Rx Calcium Acetate [Phoslo] 2,001 mg PO TIDWM capsule 10/03/20 07/09/21 Unknown Rx Fludrocortisone [Florinef] 0.1 mg PO BID tablet 10/03/20 07/09/21 Unknown Rx Lanthanum Carbonate [Fosrenol] 1,000 mg PO TIDWM tab.chew 10/03/20 07/09/21 Unknown Rx Midodrine [Proamatine] 10 mg PO TID tablet 10/03/20 07/09/21 Unknown Rx Pantoprazole [Protonix TAB] 20 mg PO QDAY tablet. 10/03/20 07/09/21 Unknown Rx Warfarin [Coumadin] 4 mg PO MoWeFr@1700 #30 tablet 10/03/20 07/09/21 1 Day Ago Rx ~07/08/21 levETIRAcetam [Keppra TAB] 500 mg PO BID tablet 10/03/20 07/10/21 07/09/21 22:00 Rx Acetaminophen/Codeine [Tylenol 1 tab PO Q6H PRN #14 tab 06/28/21 07/09/21 Unknown Rx /Codeine # 3 tab] Ondansetron [Zofran ODT TAB] 4 mg PO Q8HR PRN #14 tab.rapdis 06/28/21 07/09/21 Unknown Rx Acetaminophen [Acetaminophen TAB] 650 mg PO Q4H PRN tablet 07/10/21 Unknown Rx ED Review of Systems ROS: Stated complaint: NOT EATING,TWISTED JAW Other details as noted in HPI Comment: All other systems reviewed and negative Constitutional: weakness. denies: chills, fever Eyes: denies: eye pain, vision change ENT: other (Bilateral jaw pain). denies: ear pain, throat pain Respiratory: denies: cough, shortness of breath Cardiovascular: denies: chest pain, palpitations Gastrointestinal: denies: abdominal pain, vomiting Genitourinary: denies: dysuria, discharge Musculoskeletal: denies: back pain, arthralgia Skin: denies: rash, lesions Neurological: headache. denies: numbness, paresthesias Physical Exam - Physical Exam Vital Signs: Vital Signs 07/09/21 10:25 Temperature 98 F Pulse Rate 78 Respiratory 20 Rate Blood Pressure 80/36 [Left] O2 Sat by Pulse 96 Oximetry Physical Exam: GENERAL: The patient is well-developed well-nourished. HENT: Normocephalic. Atraumatic. Patient has moist mucous membranes. The patient appears able to open his mouth but oftentimes is talking with his jaw clenched. No tenderness to palpation along the mandible. EYES: Extraocular motions are intact. NECK: Supple. Trachea is midline. CHEST/LUNGS: Clear to auscultation. There is no respiratory distress noted. HEART/CARDIOVASCULAR: Regular. There is no tachycardia. There is no murmur. ABDOMEN: Abdomen is soft, nontender. Patient has normal bowel sounds. There is no abdominal distention. SKIN: Skin is warm and dry. NEURO: The patient is awake, alert, and oriented. The patient is cooperative. The patient has no focal neurologic deficits. Normal speech. No pronator drift. No obvious facial asymmetry. MUSCULOSKELETAL: There is no tenderness or deformity. There is no limitation range of motion. ED Course Vital Signs 07/09/21 10:25 Temperature 98 F Pulse Rate 78 Respiratory 20 Rate Blood Pressure 80/36 [Left] O2 Sat by Pulse 96 Oximetry - Consultations Consultation #1: 07/09/21 16:[address] Tamayo, suction drum drier operator on for [facility]. She knows this patient well. Despite the fact that the patient has chronic hypotension, the blood pressures obtained after giving IV fluid resuscitation is still too low. She recommends admission to the hospital. She has requested the patient receive up to 1 more liter of IV fluid, to obtain blood cultures, and request imaging of his face/jaw to further evaluate the jaw and facial pain that brought him to the emergency department. ED Medical Decision Making - Lab Data Result diagrams: 07/09/21 10:57 07/10/21 08:12 Lab Results 07/09/21 07/09/21 07/09/21 Range/Units 10:57 10:57 10:57 WBC 9.8 (4.5-11.0) K/mm3 RBC 5.31 H (3.65-5.03) M/mm3 Hgb 10.5 L (11.8-15.2) gm/dl Hct 33.1 L (35.5-45.6) % MCV 62 L (84-94) fl MCH 20 L (28-32) pg MCHC 32 (32-34) % RDW 16.2 H (13.2-15.2) % Plt Count 286 (140-440) K/mm3 Lymph % (Auto) 13.0 L (13.4-35.0) % Antelope % (Auto) 6.7 (0.0-7.3) % Eos % (Auto) 4.0 (0.0-4.3) % Baso % (Auto) 0.5 (0.0-1.8) % Lymph # (Auto) 1.3 (1.2-5.4) K/mm3 Antelope # (Auto) 0.7 (0.0-0.8) K/mm3 Eos # (Auto) 0.4 (0.0-0.4) K/mm3 Baso # (Auto) 0.1 (0.0-0.1) K/mm3 Seg Neutrophils % 75.8 H (40.0-70.0) % Seg Neutrophils # 7.4 (1.8-7.7) K/mm3 Sodium 133 L (137-145) mmol/L Potassium 3.3 L (3.6-5.0) mmol/L Chloride 80.5 L (98-107) mmol/L Carbon Dioxide 26 (22-30) mmol/L Anion Gap 30 mmol/L BUN 53 H (9-20) mg/dL Creatinine 16.1 H (0.8-1.3) mg/dL Estimated GFR 3 ml/min BUN/Creatinine Ratio 3 % Glucose 72 L (75-100) mg/dL Calcium 7.9 L (8.4-10.2) mg/dL Magnesium (1.7-2.3) mg/dL Total Bilirubin 0.40 (0.1-1.2) mg/dL AST 13 (5-40) units/L ALT < 5 L (7-56) units/L Alkaline Phosphatase 77 (35-129) units/L Total Protein 7.7 (6.3-8.2) g/dL Albumin 3.7 L (3.9-5) g/dL Albumin/Globulin Ratio 0.9 % TSH 10.020 H (0.270-4.200) mlU/mL 07/09/21 Range/Units 10:57 WBC (4.5-11.0) K/mm3 RBC (3.65-5.03) M/mm3 Hgb (11.8-15.2) gm/dl Hct (35.5-45.6) % MCV (84-94) fl MCH (28-32) pg MCHC (32-34) % RDW (13.2-15.2) % Plt Count (140-440) K/mm3 Lymph % (Auto) (13.4-35.0) % Antelope % (Auto) (0.0-7.3) % Eos % (Auto) (0.0-4.3) % Baso % (Auto) (0.0-1.8) % Lymph # (Auto) (1.2-5.4) K/mm3 Antelope # (Auto) (0.0-0.8) K/mm3 Eos # (Auto) (0.0-0.4) K/mm3 Baso # (Auto) (0.0-0.1) K/mm3 Seg Neutrophils % (40.0-70.0) % Seg Neutrophils # (1.8-7.7) K/mm3 Sodium (137-145) mmol/L Potassium (3.6-5.0) mmol/L Chloride (98-107) mmol/L Carbon Dioxide (22-30) mmol/L Anion Gap mmol/L BUN (9-20) mg/dL Creatinine (0.8-1.3) mg/dL Estimated GFR ml/min BUN/Creatinine Ratio % Glucose (75-100) mg/dL Calcium (8.4-10.2) mg/dL Magnesium 2.40 H (1.7-2.3) mg/dL Total Bilirubin (0.1-1.2) mg/dL AST (5-40) units/L ALT (7-56) units/L Alkaline Phosphatase (35-129) units/L Total Protein (6.3-8.2) g/dL Albumin (3.9-5) g/dL Albumin/Globulin Ratio % TSH (0.270-4.200) mlU/mL - EKG Data -: EKG Interpreted by Nv EKG shows normal: sinus rhythm, axis, intervals (Prolonged QT and QTC), QRS complexes (Low voltage), ST-T waves Rate: normal - EKG Data When compared to previous EKG there are: no significant change Interpretation: unchanged when compared t (05/15/21) - Medical Decision Making This patient presented to the emergency department with a complaint of a 1 week history of a headache, and facial and jaw pain that is causing his mouth to be " pulled" and keeping him from appropriately opening his mouth, eating/drinking. The patient is visually impaired, but otherwise he does not appear to have any neurological deficits on the NIH stroke scale. The patient is seen opening his mouth but it does appear to cause him some discomfort. However, during his ED course, the patient has been able to swallow pills and drink apple juice. Patient's labs show mild hypokalemia, mild hypercalcemia, renal insufficiency consistent with his end-stage renal disease on hemodialysis, mild anemia of chronic kidney disease, and an elevated TSH level consistent with his history of hypothyroidism. CT of the head did not show any hemorrhage, large vessel occlusion, or any other acute process. The patient has chronic hypotension and usually has a systolic blood pressure of about 80 and a map of about 50. However the patient has been having increased hypotension even for him. He was given a liter of IV fluid, despite being end- stage renal disease on hemodialysis, and I could not get his map above 40 or so. I spoke with his nephrology service who agrees that his blood pressure is too low, even for him. I was given permission to give another liter of IV fluid. Nephrology has been consulted. Patient will be admitted to the hospital for further evaluation and treatment was accepted for admission by the hospitalist, Dr. Rollins. Critical Care Time: No Critical care attestation.: If time is entered above; I have spent that time in minutes in the direct care of this critically ill patient, excluding procedure time. ED Disposition Clinical Impression: Facial pain, Jaw pain, ESRD on hemodialysis, Hypokalemia, Hypocalcemia Hypotension Qualifiers: Hypotension type: unspecified hypotension type Qualified Code(s): I95.9 - Hypotension, unspecified Disposition: 09 ADMITTED INPATIENT Is pt being admited?: Yes Condition: Fair Time of Disposition: 20:06
[2021-07-09 11:28] LABS: Basophils # (Auto) 0.1 K/mm3 (0.0-0.1); Basophils % (Auto) 0.5 % (0.0-1.8); Eosinophils # (Auto) 0.4 K/mm3 (0.0-0.4); Hematocrit 33.1 % (35.5-45.6); Hemoglobin 10.5 gm/dl (11.8-15.2); Lymphocytes # (Auto) 1.3 K/mm3 (1.2-5.4); Mean Corpuscular HGB Conc 32 % (32-34); Monocytes # (Auto) 0.7 K/mm3 (0.0-0.8); Monocytes % (Auto) 6.7 % (0.0-7.3); Platelet Count 286 K/mm3 (140-440); Red Blood Count 5.31 M/mm3 (3.65-5.03); Red Cell Distribution Width 16.2 % (13.2-15.2)
[2021-07-09 11:49] LABS: Albumin 3.7 g/dL (3.9-5); Blood Urea Nitrogen 53 mg/dL (9-20); Calcium 7.9 mg/dL (8.4-10.2); Hemolysis Index 16
[2021-07-09 11:55] LABS: Alanine Aminotransferase < 5 units/L (7-56); BUN/Creatinine Ratio 3
[2021-07-09 12:10] LABS: Mean Corpuscular Volume 62 fl (84-94)
--- NOTE | 2021-07-09 12:29 | Cat Scan Report ---
CT head/brain wo con INDICATION / CLINICAL INFORMATION: 36 years Male; headache. TECHNIQUE: Routine CT head without contrast. All CT scans at this location are performed using CT dos e reduction for ALARA by means of automated exposure control. COMPARISON: 06/28/2021 FINDINGS: BRAIN / INTRACRANIAL CONTENTS: No acute hemorrhage, mass effect, midline shift, hydrocephalus, or acu te, large territorial infarct. No signs of significant atrophy or chronic infarct. No significant whi te matter abnormality seen. CRANIOCERVICAL JUNCTION: No significant abnormality. ORBITS: Scleral banding suggested on the left. Orbits are otherwise grossly normal in appearance. SINUSES / MASTOIDS: Visualized paranasal sinuses and mastoid air cells are essentially clear. ADDITIONAL FINDINGS: None. IMPRESSION: 1. No focal mass, hemorrhage, hydrocephalus, or acute, large territorial infarct. Signer Name: Jarad Begum MD, III Signed: 07/09/2021 12:24 PM Workstation Name: [id number]
[2021-07-09] MEDS ORDERED: KETOROLAC 30 MG/1 ML INJ IM ONE (13:05)
[2021-07-09] MEDS ORDERED: CYCLOBENZAPRINE 10 MG TAB PO ONE (13:05)
[2021-07-09] MEDS ORDERED: SODIUM CHLORIDE 0.9% 500 ML 500 ML IV ONE ×2 (14:13→15:20)
[2021-07-09] MEDS ORDERED: SODIUM CHLORIDE 0.9% 1000 ML 1,000 ML IV ONE (16:32)
--- NOTE | 2021-07-09 16:44 | History and Physical Report ---
History of Present Illness Chief complaint: My jaw hurts and I need dialysis History of present illness: 36 YO Male with ESRD on HD(M,W,F), DVT/PE on therapeutic anticoagulation with coumadin, Seizure Disorder, Chronic Hypotension (Systolic in 80's), AV Graft Embolism presents to ED for evaluation. Patient reports "my jaws hurt and I need dialysis". Patient states that he has experienced generalized weakness, dimini shed oral intake secondary to jaw pain. Patient acknowledges missed dialysis on Saturday. Patient transported to [facility] via private vehicle for further care and evaluation of the aforementioned symptoms. The patient was seen and evaluated in the emergency department. All lab and imaging studies reviewed. Patient found to have end-stage renal disease in need of urgent dialysis, jaw pain suspected secondary to TMJ syndrome. Patient placed in observation status and admitted to medical floor. Nephrology team consulted for urgent dialysis. Patient denies fever, chills, chest pain, palpitation, productive cough, skin rash, recent ill contacts, or known exposure to COVID-19. Prior admission on 05/15/2021 reviewed. All medication listed at time of admission has been reconciled. Past History Past Medical History: DVT, ESRD, pulmonary embolism, seizures Past Surgical History: Other (PEG tube placement, AV fistula) Social history: single. denies: smoking, alcohol abuse, prescription drug abuse Family history: hypertension Medications and Allergies Allergies Allergy/AdvReac Type Severity Reaction Status Date / Time Iodine and Iodide Containing Allergy Swelling Verified 03/24/17 08:47 Produc povidone-iodine Allergy Swelling Verified 03/24/17 08:47 [From Betadine] soap [From Betadine] Allergy Swelling Verified 03/24/17 08:47 Iodinated Contrast Media AdvReac Swelling Verified 03/24/17 08:47 [Iodinated Contrast Media - IV Dye] IV Contrast AdvReac Swelling Uncoded 03/24/17 08:47 Home Medications Medication Instructions Recorded Confirmed Last Taken Type Colesevelam [Welchol] 625 mg PO BID 10/11/15 04/24/16 04/23/16 History 625 mg Potassium Chloride [Klor-Con 10] 20 meq PO DAILY 10/11/15 04/24/16 04/23/16 History 20 meq Promethazine [Phenergan] 25 mg PO TID PRN 10/11/15 04/16/16 02/24/16 History 25 mg allopurinoL [Zyloprim] 100 mg PO QDAY 10/11/15 04/24/16 04/23/16 History 100 mg Colchicine [Colcrys] 0.6 mg PO QDAY 04/16/16 04/24/16 Unknown History Acetaminophen [Acetaminophen TAB] 650 mg PO Q4H PRN tablet 09/22/20 Unknown Rx Calcium Acetate [Phoslo] 2,001 mg PO TIDWM capsule 10/03/20 Unknown Rx Fludrocortisone [Florinef] 0.1 mg PO BID tablet 10/03/20 Unknown Rx Lanthanum Carbonate [Fosrenol] 1,000 mg PO TIDWM tab.chew 10/03/20 Unknown Rx Midodrine [Proamatine] 10 mg PO TID tablet 10/03/20 Unknown Rx Pantoprazole [Protonix TAB] 20 mg PO QDAY tablet. 10/03/20 Unknown Rx Warfarin [Coumadin] 4 mg PO MoWeFr@1700 #30 tablet 10/03/20 Unknown Rx levETIRAcetam [Keppra TAB] 500 mg PO BID tablet 10/03/20 Unknown Rx oxyCODONE /ACETAMINOPHEN [Percocet 1 tab PO Q6H PRN #30 tablet 10/03/20 Unknown Rx 5/325 mg] Acetaminophen/Codeine [Tylenol 1 tab PO Q6H PRN #14 tab 06/28/21 Unknown Rx /Codeine # 3 tab] Ondansetron [Zofran Odt] 4 mg PO Q8HR PRN #14 tab.rapdis 06/28/21 Unknown Rx Active Meds: Active Medications Sodium Chloride (Nacl 0.9% 1000 Ml) 1,000 mls @ 999 mls/hr IV BOLUS ONE Stop: 07/09/21 17:32 Last Admin: 07/09/21 16:43 Dose: 999 mls/hr Documented by: Review of Systems Constitutional: no weight loss, no weight gain, no fever, no chills Ears, nose, mouth and throat: other (Jaw pain), no ear pain, no ear discharge, no tinnitis, no nose pain Cardiovascular: no chest pain, no orthopnea, no palpitations, no rapid/irregular heart beat Respiratory: no cough, no cough with sputum, no excessive sputum, no shortness of breath Gastrointestinal: no abdominal pain, no vomiting, no diarrhea, no constipation, no change in bowel habits Genitourinary Male: no hematuria, no flank pain, no discharge, no urinary frequency, no urinary hesitancy Rectal: no pain, no incontinence, no bleeding Musculoskeletal: no neck stiffness, no neck pain, no shooting arm pain, no low back pain, no leg numbness/tingling Integumentary: no rash, no pruritis, no redness, no sores, no wounds Neurological: no paralysis, no weakness, no numbness, no tingling, no seizures, no syncope Psychiatric: no anxiety, no memory loss, no sleep disturbances, no insomnia, no hypersomnia, no change in libido, no suicidal ideation, no disorientation Endocrine: no cold intolerance, no polyphagia, no excessive thirst, no polyuria, no nocturia, no excessive sweating Hematologic/Lymphatic: no easy bruising, no easy bleeding Allergic/Immunologic: no urticaria Exam - Constitutional Vitals: Temp Pulse Resp BP Pulse Ox 97.8 F 43 L 16 79/22 99 07/09/21 12:16 07/09/21 16:19 07/09/21 13:15 07/09/21 16:19 07/09/21 13:15 General appearance: Present: mild distress - EENT Eyes: Present: PERRL ENT: hearing intact, clear oral mucosa - Neck Neck: Present: supple, normal ROM - Respiratory Respiratory effort: normal Respiratory: bilateral: CTA - Cardiovascular Heart Sounds: Present: S1 & S2. Absent: rub, click - Extremities Extremities: pulses symmetrical, No edema Peripheral Pulses: within normal limits - Abdominal General gastrointestinal: Present: soft, non-tender, non-distended, normal bowel sounds Male genitourinary: Present: normal - Integumentary Integumentary: Present: clear, warm, dry - Musculoskeletal Musculoskeletal: gait normal, strength equal bilaterally - Psychiatric Psychiatric: appropriate mood/affect, intact judgment & insight - Neurologic Neurologic: CNII-XII intact, moves all extremities Results - Labs CBC & Chem 7: 07/09/21 10:57 07/09/21 10:57 Labs: Abnormal lab results 07/09/21 07/09/21 07/09/21 Range/Units 10:57 10:57 10:57 RBC 5.31 H (3.65-5.03) M/mm3 Hgb 10.5 L (11.8-15.2) gm/dl Hct 33.1 L (35.5-45.6) % MCV 62 L (84-94) fl MCH 20 L (28-32) pg RDW 16.2 H (13.2-15.2) % Lymph % (Auto) 13.0 L (13.4-35.0) % Seg Neutrophils % 75.8 H (40.0-70.0) % Sodium 133 L (137-145) mmol/L Potassium 3.3 L (3.6-5.0) mmol/L Chloride 80.5 L (98-107) mmol/L BUN 53 H (9-20) mg/dL Creatinine 16.1 H (0.8-1.3) mg/dL Glucose 72 L (75-100) mg/dL Calcium 7.9 L (8.4-10.2) mg/dL Magnesium (1.7-2.3) mg/dL ALT < 5 L (7-56) units/L Albumin 3.7 L (3.9-5) g/dL TSH 10.020 H (0.270-4.200) mlU/mL 07/09/21 Range/Units 10:57 RBC (3.65-5.03) M/mm3 Hgb (11.8-15.2) gm/dl Hct (35.5-45.6) % MCV (84-94) fl MCH (28-32) pg RDW (13.2-15.2) % Lymph % (Auto) (13.4-35.0) % Seg Neutrophils % (40.0-70.0) % Sodium (137-145) mmol/L Potassium (3.6-5.0) mmol/L Chloride (98-107) mmol/L BUN (9-20) mg/dL Creatinine (0.8-1.3) mg/dL Glucose (75-100) mg/dL Calcium (8.4-10.2) mg/dL Magnesium 2.40 H (1.7-2.3) mg/dL ALT (7-56) units/L Albumin (3.9-5) g/dL TSH (0.270-4.200) mlU/mL Assessment and Plan - Patient Problems (1) End stage renal disease Current Visit: Yes Status: Acute Plan to address problem: Nephrology team consulted in ED, dialysis as per renal team, EKG showed no acute EKG changes, potassium level, avoid nephrotoxic agents, renal diet. (2) Hypotension (arterial) Current Visit: Yes Status: Acute Qualifiers: Hypotension type: unspecified hypotension type Qualified Code(s): I95.9 - Hypotension, unspecified Plan to address problem: Supportive care, continue monitoring, continue medical management. Epinephrine at bedside for systolic blood pressure less than 75 with concomitant change in mental status. (3) TMJ pain dysfunction syndrome Current Visit: Yes Status: Acute Plan to address problem: X-ray mandible, supportive care, pain control, (4) Seizure disorder Current Visit: No Status: Chronic Plan to address problem: Supportive care, neuro check, seizure precautions, continue current therapy. (5) History of DVT (deep vein thrombosis) Current Visit: Yes Status: Acute Plan to address problem: Continue therapeutic anticoagulation, supportive care (6) DVT prophylaxis Current Visit: No Status: Acute Plan to address problem: SCD to bilateral lower extremities while in bed, continue therapeutic anticoagulation.
[2021-07-09] MEDS ORDERED: ACETAMINOPHEN 325 MG TAB PO PRN (17:00)
[2021-07-09] MEDS ORDERED: ALBUTEROL 2.5 MG/3 ML NEBU IH PRN (17:00)
[2021-07-09] MEDS ORDERED: oxyCODONE /ACETAMINOPHEN 5-325MG TAB PO PRN (17:00)
[2021-07-09] MEDS ORDERED: ONDANSETRON 4 MG/2 ML INJ IV PRN (17:00)
[2021-07-09] MEDS ORDERED: HYDROmorphone 1 MG/1 ML INJ IV PRN (17:00)
[2021-07-09] MEDS ORDERED: PROMETHAZINE 25 MG TAB PO PRN (17:02)
[2021-07-09] MEDS ORDERED: EPINEPHrine/PF 1 MG/1 ML INJ IV ONE (17:07)
[2021-07-09] MEDS ORDERED: diphenhydrAMINE 50 MG/ML VIAL IV ONE (18:21)
--- NOTE | 2021-07-09 18:27 | XRay Report ---
MANDIBLE HISTORY: Jaw pain COMPARISON: None. TECHNIQUE: 5 views of the mandible were obtained. FINDINGS: Mandible: No significant abnormality. Bones: No significant abnormality. Soft tissues: No significant abnormality. Additional findings: None. IMPRESSION: 1. No significant abnormality. Signer Name: George Parish MD Signed: 07/09/2021 6:22 PM Workstation Name: [id number]
[2021-07-09] MEDS ORDERED: MIDODRINE 5 MG TAB PO SCH (20:00)
--- NOTE | 2021-07-09 20:48 | Cat Scan Report ---
CT facial bones w con INDICATION / CLINICAL INFORMATION: 36 years Male; Bi-Lateral jaw pain making it difficult to open or close mouth.. TECHNIQUE: Thin cut axial images obtained. Sagittal and coronal reconstructions performed. All CT scans at this location are performed using CT dose reduction for ALARA by means of automated exposure control. COMPARISON: CT head-07/09/2021 at 11:24 AM; CT-04/06/2010 FINDINGS: Visualized paranasal sinuses are clear. Temporomandibular joints are normal in appearance bilaterally. No signs of abnormal enhancement seen following contrast. Scleral banding of the left globe noted. 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 IMPRESSION: 1. No definitive cause for patient's symptomatology appreciated. Signer Name: Jarad Begum MD, III Signed: 07/09/2021 8:44 PM Workstation Name: [id number]
[2021-07-09] MEDS: levETIRAcetam 500 MG TAB PO SCH (21:50)
[2021-07-09] MEDS ORDERED: COLESEVELAM 625 MG TAB PO SCH (22:00)
[2021-07-09] MEDS ORDERED: FLUDROCORTISONE 0.1 MG TAB PO SCH (22:00)
[2021-07-10 09:19] LABS: Calcium 7.1 mg/dL (8.4-10.2)
[2021-07-10 09:28] LABS: INR 0.93 (0.87-1.13)
--- NOTE | 2021-07-10 09:32 | Consultation ---
History of Present Illness - Reason for Consult Consult date: 07/10/21 end stage renal disease - History of Present Illness Mr. 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 Patient last treated on Jul 05. He reports 1 week hx of jaw pain, neck pain and headache. He denies fevers. History limited as patient was on phone call and asked MD to "hold on". Patient continued to continue telephone conversation preventing collection of further history. Past History Past Medical History: DVT, ESRD, pulmonary embolism, seizures Past Surgical History: Other (PEG tube placement, AV fistula) Social history: single. denies: smoking, alcohol abuse, prescription drug abuse Family history: hypertension Medications and Allergies Allergies Allergy/AdvReac Type Severity Reaction Status Date / Time Iodine and Iodide Containing Allergy Swelling Verified 03/24/17 08:47 Produc povidone-iodine Allergy Swelling Verified 03/24/17 08:47 [From Betadine] soap [From Betadine] Allergy Swelling Verified 03/24/17 08:47 Iodinated Contrast Media AdvReac Swelling Verified 03/24/17 08:47 [Iodinated Contrast Media - IV Dye] IV Contrast AdvReac Swelling Uncoded 03/24/17 08:47 Home Medications Medication Instructions Recorded Confirmed Last Taken Type Colesevelam [Welchol] 625 mg PO BID 10/11/15 07/09/21 04/23/16 History 625 mg Potassium Chloride [Klor-Con 10] 20 meq PO DAILY 10/11/15 07/09/21 07/09/21 History Promethazine [Phenergan] 25 mg PO TID PRN 10/11/15 07/09/21 02/24/16 History 25 mg allopurinoL [Zyloprim] 100 mg PO QDAY 10/11/15 07/09/21 1 Day Ago History ~07/08/21 Colchicine [Colcrys] 0.6 mg PO QDAY 04/16/16 07/10/21 07/07/21 18:00 History Acetaminophen [Acetaminophen TAB] 650 mg PO Q4H PRN tablet 09/22/20 07/09/21 Unknown Rx Calcium Acetate [Phoslo] 2,001 mg PO TIDWM capsule 10/03/20 07/09/21 Unknown Rx Fludrocortisone [Florinef] 0.1 mg PO BID tablet 10/03/20 07/09/21 Unknown Rx Lanthanum Carbonate [Fosrenol] 1,000 mg PO TIDWM tab.chew 10/03/20 07/09/21 Unknown Rx Midodrine [Proamatine] 10 mg PO TID tablet 10/03/20 07/09/21 Unknown Rx Pantoprazole [Protonix TAB] 20 mg PO QDAY tablet. 10/03/20 07/09/21 Unknown Rx Warfarin [Coumadin] 4 mg PO MoWeFr@1700 #30 tablet 10/03/20 07/09/21 1 Day Ago Rx ~07/08/21 levETIRAcetam [Keppra TAB] 500 mg PO BID tablet 10/03/20 07/10/21 07/09/21 22:00 Rx oxyCODONE /ACETAMINOPHEN [Percocet 1 tab PO Q6H PRN #30 tablet 10/03/20 07/09/21 1 Day Ago Rx 5/325 mg] ~07/08/21 Acetaminophen/Codeine [Tylenol 1 tab PO Q6H PRN #14 tab 06/28/21 07/09/21 Unknown Rx /Codeine # 3 tab] Ondansetron [Zofran Odt] 4 mg PO Q8HR PRN #14 tab.rapdis 06/28/21 07/09/21 Unk nown Rx Active Meds: Active Medications Acetaminophen (Acetaminophen 325 Mg Tab) 650 mg PO Q4H PRN PRN Reason: Pain MILD(1-3)/Fever >100.5/TUBBS Albuterol (Albuterol 2.5 Mg/3 Ml Nebu) 2.5 mg IH Q4HRT PRN PRN Reason: Shortness Of Breath Allopurinol (Allopurinol 100 Mg Tab) 100 mg PO QDAY ALONSO Calcium Acetate (Calcium Acetate 667 Mg Cap) 2,001 mg PO TIDWM ALONSO Hydromorphone HCl (Hydromorphone 1 Mg/1 Ml Inj) 0.5 mg IV Q23H PRN PRN Reason: Pain , Severe (7-10) Lanthanum Carbonate (Lanthanum Carbonate 500 Mg Tab) 1,000 mg PO TIDWM [facility] Levetiracetam (Levetiracetam 500 Mg Tab) 500 mg PO BID [facility] Last Admin: 07/09/21 21:50 Dose: 500 mg Documented by: Oxycodone/Acetaminophen (Oxycodone /Acetaminophen 5-325mg Tab) 1 tab PO Q16H PRN PRN Reason: Pain, Moderate (4-6) Potassium Chloride (Potassium Chloride Er 20 Meq Tab) 20 meq PO QDAY [facility] Promethazine HCl (Promethazine 25 Mg Tab) 25 mg PO TID PRN PRN Reason: Nausea Sodium Chloride (Sodium Chloride 0.9% 10 Ml Flush Syringe) 10 ml IV BID [facility] Last Admin: 07/09/21 21:50 Dose: 10 ml Documented by: Sodium Chloride (Sodium Chloride 0.9% 10 Ml Flush Syringe) 10 ml IV PRN PRN PRN Reason: LINE FLUSH Warfarin Sodium (Warfarin 5 Mg Tab) 5 mg PO DAILY@1700 [facility] Review of Systems All systems: negative Exam - Vital Signs Vital signs: Vital Signs Temp Pulse Resp BP Pulse Ox 98 F 78 20 80/36 96 07/09/21 10:25 07/09/21 10:25 07/09/21 10:25 07/09/21 10:25 07/09/21 10:25 - General Appearance General appearance: well-developed, well-nourished EENT: ATNC Integumentary: no rash, warm and dry Neurologic: no focal deficit Results - Lab Results 07/09/21 10:57 07/10/21 08:12 Most recent lab results Calcium 7.1 mg/dL (8.4-10.2) L 07/10/21 08:12 Magnesium 2.40 mg/dL (1.7-2.3) H 07/09/21 10:57 Assessment and Plan Impression: * End stage renal disease on intermittent HD MWF at [facility] --Last HD on Jul 05 * Jaw/neck pain * Chronic hypotension * Anemia secondary to ESRD * Secondary hyperparathyroidism Plan: * Hemodialysis today - maintain outpatient HD rx * UF as tolerated (patient requires minimal UF at outpatient dialysis clinic) * Resume Florinef 0.1mg daily * Resume Midodrine 10mg TID * Imaging reviewed; defer further work up to primary team * Epogen TIW prn * Dose medications for renal function
--- NOTE | 2021-07-10 09:47 | Electrocardiograph Report ---
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
[2021-07-10] MEDS ORDERED: SODIUM CHLORIDE 0.9% 100 ML IV PRN (09:53)
[2021-07-10] MEDS ORDERED: PANTOPRAZOLE 20 MG TAB PO SCH (10:00)
[2021-07-10] MEDS ORDERED: COLCHICINE 0.6 MG TAB PO SCH (10:00)
[2021-07-10] MEDS ORDERED: allopurinoL 100 MG TAB PO SCH (10:00)
[2021-07-10] MEDS ORDERED: NON-FORMULARY EACH (Potassium Chloride [Klor-Con 10] 10 MEQ Tablet.Er) PO SCH (10:00)
[2021-07-10] MEDS: CALCIUM ACETATE 667 MG CAP PO SCH ×2 (11:42→11:47)
[2021-07-10] MEDS: LANTHANUM CARBONATE 500 MG TAB PO SCH ×2 (11:42→18:56)
[2021-07-10] MEDS: levETIRAcetam 500 MG TAB PO SCH ×2 (11:46→23:29)
[2021-07-10] MEDS: POTASSIUM CHLORIDE ER 20 MEQ TAB PO SCH (11:46)
[2021-07-10] MEDS: MIDODRINE 5 MG TAB PO SCH (11:46)
[2021-07-10] MEDS: FLUDROCORTISONE 0.1 MG TAB PO SCH (11:50)
--- NOTE | 2021-07-10 13:46 | Discharge Summary ---
Providers - Providers Date of Admission: 07/09/21 17:00 Date of discharge: 07/10/21 Attending physician: MARY BEDOYA 07/09/21 16:31 Consult to Physician [CONS] Routine Comment: Consulting Provider: BHAKTI ENRIQUEZ Physician Instructions: Reason For Exam: ESRD, hypotension Primary care physician: MEDICAL STAFFING COORDINATOR Hospitalization Condition: Fair Disposition: 01 HOME / SELF CARE / HOMELESS Final Discharge Diagnosis (Prints w/discharge instructions): 1.Jaw pain. 2.ESRD missed dialysis - Discharge Diagnoses (1) ESRD on hemodialysis Status: Acute (2) End stage renal disease Status: Acute (3) Jaw pain Status: Acute Core Measure Documentation - Palliative Care Palliative Care/ Comfort Measures: Not Applicable - Core Measures Any of the following diagnoses?: none Exam - Constitutional Vitals: Temp Pulse Resp BP Pulse Ox 97.4 F L 53 L 16 116/20 99 07/10/21 04:06 07/10/21 04:06 07/10/21 04:06 07/10/21 04:06 07/10/21 04:06 Plan Activity: advance as tolerated Diet: low fat, low cholesterol, low salt, renal Plan of Treatment: 1.Follow up with PCP in 1 week. 2.Check INR level with PCP in 3-5 days 3.Continue routine hemodialysis as scheduled Follow up with: PRIMARY CARE, [Primary Care Provider] - 3-5 Days Forms: Warfarin Discharge Instruction
[2021-07-10] MEDS ORDERED: WARFARIN 5 MG TAB PO SCH (17:00)
[2021-07-10] MEDS ORDERED: WARFARIN 2 MG TAB PO SCH (17:00)
[2021-07-10 17:22] LABS: Hepatitis C Virus Antibody Non-Reactive (NonReactive)
[2021-07-10 17:27] LABS: Hepatitis B Surface Antigen Nonreactive (Negative)
[2021-07-11 04:58] VITALS: BP 131/73
[2021-07-11 06:22] LABS: INR 0.88 (0.87-1.13)
--- NOTE | 2021-07-11 09:51 | Discharge Summary ---
Providers - Providers Date of Admission: 07/11/21 08:37 Date of discharge: 07/11/21 Attending physician: ANDREA POTTER 07/09/21 16:31 Consult to Physician [CONS] Routine Comment: Consulting Provider: BHAKTI ENRIQUEZ Physician Instructions: Reason For Exam: ESRD, hypotension Primary care physician: DATA MINER Hospitalization Condition: Fair Pertinent studies: Head CT, mandible x-ray, face CT Hospital course: Mr. 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 Patient was last treated with HD on Jul 05. He reported 1 week hx of jaw pain, neck pain and headache. Facial CT, Jaw xry found no abnormality. HD was done per nephro recommendation. Patient was then recommended to f/u with dentist and ENT as outpt. Discharge plan and Mx was discussed with patient's father by phone. Patient was discharged home in stable condition with outpt f/u. Disposition: 01 HOME / SELF CARE / HOMELESS Final Discharge Diagnosis (Prints w/discharge instructions): --End stage renal disease on intermittent HD MWF at [facility]. --Jaw/neck pain. --Chronic hypotension. --Anemia secondary to ESRD. --Secondary hyperparathyroidism Time spent for discharge: 34 minutes Core Measure Documentation - Palliative Care Palliative Care/ Comfort Measures: Not Applicable - Core Measures Any of the following diagnoses?: none Exam - Constitutional Vitals: Temp Pulse Resp BP Pulse Ox 98.3 F 75 18 131/73 95 07/11/21 04:57 07/11/21 04:57 07/11/21 04:57 07/11/21 04:57 07/11/21 09:38 Plan Activity: fall precautions Weight Bearing Status: Non-Weight Bearing Diet: renal Additional Instructions: Please follow-up with the dentist for your lower jaw pain as outpatient. Also you can follow-up with a ENT physician Plan of Treatment: 1.Follow up with PCP in 1 week. 2.Check INR level with PCP in 3-5 days 3.Continue routine hemodialysis as scheduled Follow up with: PRIMARY CARE, [Primary Care Provider] - 3-5 Days Forms: Warfarin Discharge Instruction
[2021-07-11] MEDS: CALCIUM ACETATE 667 MG CAP PO SCH (11:37)
[2021-07-11] MEDS: MIDODRINE 5 MG TAB PO SCH (11:37)
[2021-07-11] MEDS: LANTHANUM CARBONATE 500 MG TAB PO SCH (11:37)
[2021-07-11] MEDS: FLUDROCORTISONE 0.1 MG TAB PO SCH (11:37)
[2021-07-11] MEDS: POTASSIUM CHLORIDE ER 20 MEQ TAB PO SCH (11:38)
[2021-07-11] MEDS: levETIRAcetam 500 MG TAB PO SCH (11:38)
--- NOTE | 2021-07-11 13:15 | Progress Note ---
Assessment and Plan Impression: * End stage renal disease on intermittent HD MWF at [facility] --Last HD on Jul 05 * Jaw/neck pain * Chronic hypotension * Anemia secondary to ESRD * Secondary hyperparathyroidism Plan: * Hemodialysis today - maintain outpatient HD rx * UF as tolerated (patient requires minimal UF at outpatient dialysis clinic) * Resume Florinef 0.1mg daily * Resume Midodrine 10mg TID * Imaging reviewed; defer further work up to primary team * Epogen TIW prn * Dose medications for renal function Objective - Exam Narrative Exam: General appearance: well-developed, well-nourished EENT: ATNC Integumentary: no rash, warm and dry Neurologic: no focal deficit - Vital Signs Vital signs: Vital Signs - 12hr 07/11/21 07/11/21 04:57 09:38 Temperature 98.3 F Pulse Rate 75 Respiratory 18 Rate Blood Pressure 131/73 O2 Sat by Pulse 99 95 Oximetry - Lab 07/09/21 10:57 07/10/21 08:12 Most recent lab results Calcium 7.1 mg/dL (8.4-10.2) L 07/10/21 08:12 Magnesium 2.40 mg/dL (1.7-2.3) H 07/09/21 10:57 Medications & Allergies - Medications Allergies/Adverse Reactions: Allergies Iodine and Iodide Containing Produc Allergy (Verified 03/24/17 08:47) Swelling povidone-iodine [From Betadine] Allergy (Verified 03/24/17 08:47) Swelling soap [From Betadine] Allergy (Verified 03/24/17 08:47) Swelling Iodinated Contrast Media [Iodinated Contrast Media - IV Dye] Adverse Reaction (Verified 03/24/17 08:47) Swelling IV Contrast Adverse Reaction (Uncoded 03/24/17 08:47) Swelling Home Medications: Home Medications Medication Instructions Recorded Confirmed Last Taken Type Colesevelam [Welchol] 625 mg PO BID 10/11/15 07/09/21 04/23/16 History 625 mg Potassium Chloride [Klor-Con 10] 20 meq PO DAILY 10/11/15 07/09/21 07/09/21 His tory Promethazine [Phenergan] 25 mg PO TID PRN 10/11/15 07/09/21 02/24/16 History 25 mg allopurinoL [Zyloprim] 100 mg PO QDAY 10/11/15 07/09/21 1 Day Ago History ~07/08/21 Colchicine [Colcrys] 0.6 mg PO QDAY 04/16/16 07/10/21 07/07/21 18:00 History Acetaminophen [Acetaminophen TAB] 650 mg PO Q4H PRN tablet 09/22/20 07/09/21 Unknown Rx Calcium Acetate [Phoslo] 2,001 mg PO TIDWM capsule 10/03/20 07/09/21 Unknown Rx Fludrocortisone [Florinef] 0.1 mg PO BID tablet 10/03/20 07/09/21 Unknown Rx Lanthanum Carbonate [Fosrenol] 1,000 mg PO TIDWM tab.chew 10/03/20 07/09/21 Unknown Rx Midodrine [Proamatine] 10 mg PO TID tablet 10/03/20 07/09/21 Unknown Rx Pantoprazole [Protonix TAB] 20 mg PO QDAY tablet. 10/03/20 07/09/21 Unknown Rx Warfarin [Coumadin] 4 mg PO MoWeFr@1700 #30 tablet 10/03/20 07/09/21 1 Day Ago Rx ~07/08/21 levETIRAcetam [Keppra TAB] 500 mg PO BID tablet 10/03/20 07/10/21 07/09/21 22:00 Rx Acetaminophen/Codeine [Tylenol 1 tab PO Q6H PRN #14 tab 06/28/21 07/09/21 Unknown Rx /Codeine # 3 tab] Ondansetron [Zofran ODT TAB] 4 mg PO Q8HR PRN #14 tab.rapdis 06/28/21 07/09/21 Unknown Rx Acetaminophen [Acetaminophen TAB] 650 mg PO Q4H PRN tablet 07/10/21 Unknown Rx Active Medications: Generic Name Dose Route Start Last Admin Trade Name Freq PRN Reason Stop Dose Admin Acetaminophen 650 mg 07/09/21 17:00 07/10/21 23:28 Acetaminophen 325 Mg Tab PO 650 mg Q4H PRN Administration Pain MILD(1-3)/Fever >100.5/TUBBS Albuterol 2.5 mg 07/09/21 17:00 Albuterol 2.5 Mg/3 Ml Nebu IH Q4HRT PRN Shortness Of Breath Allopurinol 100 mg 07/10/21 10:00 Allopurinol 100 Mg Tab PO QDAY [facility] Calcium Acetate 2,001 mg 07/10/21 08:00 07/11/21 11:37 Calcium Acetate 667 Mg Cap PO 2,001 mg TIDWM ALONSO Administration Fludrocortisone Acetate 0.1 mg 07/10/21 11:00 07/11/21 11:37 Fludrocortisone 0.1 Mg Tab PO 0.1 mg QDAY [facility] Administration Hydromorphone HCl 0.5 mg 07/09/21 17:00 Hydromorphone 1 Mg/1 Ml Inj IV Q23H PRN Pain , Severe (7-10) Sodium Chloride 100 mls @ 999 mls/hr 07/10/21 09:53 Nacl 0.9% IV DOUG PRN Hypotension Lanthanum Carbonate 1,000 mg 07/10/21 08:00 07/11/21 11:37 Lanthanum Carbonate 500 Mg Tab PO 1,000 mg TIDWM [facility] Administration Levetiracetam 500 mg 07/09/21 22:00 07/11/21 11:38 Levetiracetam 500 Mg Tab PO 500 mg BID [facility] Administration Midodrine 10 mg 07/10/21 12:00 07/11/21 11:37 Midodrine 5 Mg Tab PO 10 mg TID@0800,1200,1600 [facility] Administration Oxycodone/Acetaminophen 1 tab 07/09/21 17:00 Oxycodone /Acetaminophen 5-325mg Tab PO Q16H PRN Pain, Moderate (4-6) Potassium Chloride 20 meq 07/10/21 10:00 07/11/21 11:38 Potassium Chloride Er 20 Meq Tab PO 20 meq QDAY [facility] Administration Promethazine HCl 25 mg 07/09/21 17:02 Promethazine 25 Mg Tab PO TID PRN Nausea Sodium Chloride 10 ml 07/09/21 22:00 07/11/21 11:38 Sodium Chloride 0.9% 10 Ml Flush Syringe IV 10 ml BID [facility] Administration Sodium Chloride 10 ml 07/09/21 17:00 Sodium Chloride 0.9% 10 Ml Flush Syringe IV PRN PRN LINE FLUSH Warfarin Sodium 5 mg 07/10/21 17:00 Warfarin 5 Mg Tab PO DAILY@1700 [facility]
--- NOTE | 2021-07-30 12:54 | Progress Note ---
Assessment and Plan Assessment and plan: (1) End stage renal disease Current Visit: Yes Status: Acute Plan to address problem: Nephrology team consulted in ED, dialysis as per renal team, EKG showed no acute EKG changes, potassium level, avoid nephrotoxic agents, renal diet. (2) Hypotension (arterial) Current Visit: Yes Status: Acute Qualifiers: Hypotension type: unspecified hypotension type Qualified Code(s): I95.9 - Hypotension, unspecified Plan to address problem: Supportive care, continue monitoring, continue medical management. Epinephrine at bedside for systolic blood pressure less than 75 with concomitant change in mental status. (3) TMJ pain dysfunction syndrome Current Visit: Yes Status: Acute Plan to address problem: X-ray mandible, supportive care, pain control, (4) Seizure disorder Current Visit: No Status: Chronic Plan to address problem: Supportive care, neuro check, seizure precautions, continue current therapy. (5) History of DVT (deep vein thrombosis) Current Visit: Yes Status: Acute Plan to address problem: Continue therapeutic anticoagulation, supportive care (6) DVT prophylaxis Current Visit: No Status: Acute Plan to address problem: SCD to bilateral lower extremities while in bed, continue therapeutic anticoagulation. 07/10/21 Patient with ESRD on dialysis, presented with jaw pain and missed hemiodialysis. Face CT was unremarkable. Plan is to discharge home after dialysis today. - Patient Problems (1) ESRD on hemodialysis Status: Acute (2) End stage renal disease Status: Acute (3) Jaw pain Status: Acute (4) Missed dialysis Status: Acute History Interval history: jaw pain missed dialysis Hospitalist Physical - Physical exam Narrative exam: Gen: Not in acute distress HEENT: Normocephalic,atraumatic Neck: supple, No JCVD Lungs: clear to auscultation bilaterally, no wheeze heart:S1 and S2 reg, no murmurs, rubs or gallop Abd:soft, NT, non distended, normal bowel sounds Ext:No edema, no clubbing, no cyanosis Neuro:AAO x 3, no focal neurological signs - Constitutional Vitals: Temp Pulse Resp BP Pulse Ox 98.3 F 75 18 131/73 95 07/11/21 04:57 07/11/21 04:57 07/11/21 04:57 07/11/21 04:57 07/11/21 09:38 General appearance: Present: mild distress Results - Labs CBC & Chem 7: 07/09/21 10:57 07/10/21 08:12 Labs: Laboratory Last Values WBC 9.8 K/mm3 (4.5-11.0) 07/09/21 10:57 RBC 5.31 M/mm3 (3.65-5.03) H 07/09/21 10:57 Hgb 10.5 gm/dl (11.8-15.2) L 07/09/21 10:57 Hct 33.1 % (35.5-45.6) L 07/09/21 10:57 MCV 62 fl (84-94) L 07/09/21 10:57 MCH 20 pg (28-32) L 07/09/21 10:57 MCHC 32 % (32-34) 07/09/21 10:57 RDW 16.2 % (13.2-15.2) H 07/09/21 10:57 Plt Count 286 K/mm3 (140-440) 07/09/21 10:57 Lymph % (Auto) 13.0 % (13.4-35.0) L 07/09/21 10:57 [place] % (Auto) 6.7 % (0.0-7.3) 07/09/21 10:57 Eos % (Auto) 4.0 % (0.0-4.3) 07/09/21 10:57 Baso % (Auto) 0.5 % (0.0-1.8) 07/09/21 10:57 Lymph # (Auto) 1.3 K/mm3 (1.2-5.4) 07/09/21 10:57 [place] # (Auto) 0.7 K/mm3 (0.0-0.8) 07/09/21 10:57 Eos # (Auto) 0.4 K/mm3 (0.0-0.4) 07/09/21 10:57 Baso # (Auto) 0.1 K/mm3 (0.0-0.1) 07/09/21 10:57 Seg Neutrophils % 75.8 % (40.0-70.0) H 07/09/21 10:57 Seg Neutrophils # 7.4 K/mm3 (1.8-7.7) 07/09/21 10:57 PT 12.9 Sec. (12.2-14.9) 07/11/21 05:00 INR 0.88 (0.87-1.13) 07/11/21 05:00 Sodium 134 mmol/L (137-145) L 07/10/21 08:12 Potassium 3.6 mmol/L (3.6-5.0) 07/10/21 08:12 Chloride 86.5 mmol/L (98-107) L 07/10/21 08:12 Carbon Dioxide 21 mmol/L (22-30) L 07/10/21 08:12 Anion Gap 30 mmol/L 07/10/21 08:12 BUN 58 mg/dL (9-20) H 07/10/21 08:12 Creatinine 16.5 mg/dL (0.8-1.3) H 07/10/21 08:12 Estimated GFR 3 ml/min 07/10/21 08:12 BUN/Creatinine Ratio 4 % 07/10/21 08:12 Glucose 55 mg/dL (75-100) L 07/10/21 08:12 Calcium 7.1 mg/dL (8.4-10.2) L 07/10/21 08:12 Magnesium 2.40 mg/dL (1.7-2.3) H 07/09/21 10:57 Total Bilirubin 0.40 mg/dL (0.1-1.2) 07/09/21 10:57 AST 13 units/L (5-40) 07/09/21 10:57 ALT < 5 units/L (7-56) L 07/09/21 10:57 Alkaline Phosphatase 77 units/L (35-129) 07/09/21 10:57 Total Protein 7.7 g/dL (6.3-8.2) 07/09/21 10:57 Albumin 3.7 g/dL (3.9-5) L 07/09/21 10:57 Albumin/Globulin Ratio 0.9 % 07/09/21 10:57 TSH 10.020 mlU/mL (0.270-4.200) H 07/09/21 10:57 Hepatitis A IgM Ab Non-reactive (NonReactive) 07/10/21 13:35 Hep Bs Antigen Nonreactive (Negative) 07/10/21 13:35 Hep B Core IgM Ab Non-reactive (NonReactive) 07/10/21 13:35 Hepatitis C Antibody Non-reactive (NonReactive) 07/10/21 13:35 [place]/IV: Voiding Method Toilet
== END 2021-07-11 13:15 | disposition home or self-care (01) | DRG 682 ==
LOC: ED 10:15 → 3A 17:00 → OBSVTOIN 07-11 08:37
PROVIDERS: ADMIT Internal Medicine; ATTEND Internal Medicine
PROC: 5A1D70Z Performance of Urinary Filtration, Intermittent, Less than 6 Hours Per Day (ICD-10-PCS; principal; 2021-07-10)
DX: I12.0 Hypertensive chronic kidney disease with stage 5 chronic kidney disease or end stage renal disease (principal); N18.6 End stage renal disease; N25.81 Secondary hyperparathyroidism of renal origin; I95.89 Other hypotension; M26.609 Unspecified temporomandibular joint disorder, unspecified side; Z86.711 Personal history of pulmonary embolism; Z86.718 Personal history of other venous thrombosis and embolism; E87.6 Hypokalemia; G40.909 Epilepsy, unspecified, not intractable, without status epilepticus; D63.1 Anemia in chronic kidney disease; Z20.822 Contact with and (suspected) exposure to COVID-19
CPT/HCPCS: 36415; 70100; 70450; 70487; 80048; 80053; 80074; 83735; 84443; 85025; 85610; 87040; 93005; G0378; J1200; J1885; J7030; J7040; Q9967